=== PATIENT | female | born 1950 | race Caucasian/White ===

== ENCOUNTER 2023-07-23 14:39 | Emergency (ER) | payer BC, SELFPAY ==
[2023-07-23 14:42] VITALS: BP 159/81
--- NOTE | 2023-07-23 15:23 | ED.MUSCINJ ---
HPI-Injury
General
Chief Complaint: Musculo-Skeletal Complaint
Source: patient
Exam Limitations: none
Time Seen by Provider: 07/23/23 15:04
Travel History
Have you had any contact with someone who has COVID-19?: No
Do you have any symptoms of coronavirus? Fever > 100 degrees, chills, cough, shortness of breath, sore throat, loss of taste or smell, muscle aches, or headache?: No
History of Present Illness-Injury
Initial Injury comments:
73 year female presents after a fall she sustained two days ago while walking the dog. She complains of left wrist and hand pain. She hit her chin. No loss of conscious. She is not anticoagulated. She has persistent swelling and bruising to the
left hand. No other complaints at this time
Past History
Past History
ED Past Medical History: CVA, HTN, Hypothyroidism, Other (anemia) and Other (C-diff colitis 10/2017)
ED Past Surgical History: ; Negative Appendectomy, Bowel resection, Cardiac or Cholecystectomy
Patient has exhibited threatening behavior?: No
PSI?: No
Social History
Tobacco: Non-smoker
Alcohol: Occasional
Drug: None
Personal:
Living: with family
Employment: Retired
Family History
Family History: Other (Noncontributory)
Phy Exam
Physical Exam
Physical Exam:
General: Well appearing female NAD
HEENT: Normal cephalic, contusion to chin, no laceration. PERRL. Mandible nontender. Dentition appears ok
MSK: Left wrist swollen tender, over base of thumb and radial aspect of wrist. No deformity. Left elbow nontender
Vascular: 2+ radial pulse left wrist.
Neuro: Alert and oriented. Good sensation to left hand. Normal gait.
SkiN abrasion noted to left thenar eminence
Injury Course
Orders/Labs/Results
Orders:
Orders
07/23/23 14:47
Forearm, Left 2 View [CR Forearm - Left 2 View] Urgent
Comment:
Reason For Exam: fall
Hand, Left 3 View [CR Hand - Left Min 3 Views] Urgent
Comment:
Reason For Exam: fall
MDM/Problems Addressed
Differential Diagnosis Includes:
Mechanical fall. Left hand and distal forearm pain. She also notes contusion to the chin. She is alert. No headache currently. At her neurologic baseline. Injury was 2 days ago. No indication for head imaging at this point. Did review x-rays
of the left forearm and hand which were negative for obvious acute finding. There is significant degenerative changes at the base of the thumb hard to exclude underlying occult fracture in this area as this is the location of her pain. Will place
in thumb spica splint and advised that she follow-up with hand specialist for further evaluation
*Critical Care Note
Total Time (30-74mins, 75-104mins- exclusive of procedures): Not Applicable
ED Attending Note
-
Portions of this chart may have been created with voice recognition software.� Occasional wrong word or��sound alike� substitutions may have occurred due to the inherent limitations of voice recognition software.
Discharge Plan
Departure
Patient Disposition: Home (Routine Discharge)
Date of Disposition: 07/23/23
Time of Disposition: 15:35
Patient with high blood pressure during this ER visit?: No
Discharge Problem:
Left thumb sprain
Instructions: Muscle and Bone Pain (DC)
Prescriptions:
No Action
levothyroxine [Synthroid] 88 MCG tablet
88 mcg PO DAILY
Aspirin Low (Enteric Coated):
81 mg PO DAILY
multivitamin 1 EACH tablet
1 tab PO HS
Vitamin B-12:
1,000 unit PO HS
amlodipine 5 MG tablet
5 mg PO DAILY
metronidazole 500 MG tablet
500 mg PO Q8 Qty: 30 0RF
vancomycin 125 MG capsule
125 mg PO QID Qty: 40 0RF
vancomycin [Vancocin] 250 MG capsule
250 mg PO QID Qty: 28 0RF
polyethylene glycol 3350 17 GRAMS powder in packet
17 grams PO DAILY Qty: 5 0RF
magnesium hydroxide 30 ML suspension
30 ml PO HSPRN PRN (Reason: consitpaiton) Qty: 5 0RF
Referrals:
Jack Narayanan MD [Active] -
Kamran Zhao DO [Family Provider] -
Activity Restrictions/Additional Instructions:
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 It is difficult to 100% completely exclude underlying fracture. Use splint. Please follow-up with hand specialist for further evaluation. You may use Tylenol if needed for
pain
Interventions
Interventions:
*Risk Screen - Suicide Last Done: 07/23/23 14:42
*General Assessment Last Done: 07/23/23 14:42
*Neglect/Abuse Screening Last Done: 07/23/23 14:42
== END 2023-07-23 15:53 | disposition home or self-care (01) ==
LOC: EMR 14:39
PROVIDERS: EMERGENCY PHYSICIAN Emergency Medicine; FAMILY PHYSICIAN Family Medicine
DX: S63.602A Unspecified sprain of left thumb, initial encounter (principal); S00.83XA Contusion of other part of head, initial encounter; W19.XXXA Unspecified fall, initial encounter; Y93.K1 Activity, walking an animal
CPT/HCPCS: 99283; 29125; 73090; 73130

== ENCOUNTER 2023-07-29 15:41 | Emergency (ER) | payer BC, SELFPAY ==
[2023-07-29 15:48] VITALS: BP 170/87
[2023-07-29 16:36] VITALS: BMI 22.0
--- NOTE | 2023-07-29 16:37 | ED.GENMED ---
History of Present Illness
General
Chief Complaint: Fall
Time Seen by Provider: 07/29/23 16:37
Travel History
Have you had any contact with someone who has COVID-19?: No
Do you have any symptoms of coronavirus? Fever > 100 degrees, chills, cough, shortness of breath, sore throat, loss of taste or smell, muscle aches, or headache?: No
History of Present Illness
History of Present Illness:
HPI: The patient was seen here 6 days ago after a fall walking her dog (but does not think the dog was involved with falling and she cannot tell me why she fell) and was diagnosed with a left wrist sprain. 3 days later, she fell again also without
explanation. This caused increased pain in the left wrist and was seen by orthopedics who placed a cast at the left wrist but reports normal x-ray. She called PMD who wanted her to come in here for further evaluation including CT imaging. She has
chronic neck pain.
EXAM:
GENERAL: Well appearing in no distress
CERVICAL SPINE: No midline c-spine tenderness with excellent AROM
HEAD: There is no scalp hematoma however there is noted to the chin diffusely
CHEST: No chest wall tenderness, normal heart sounds
LUNGS: Equal lung sounds, no respiratory distress
ABDOMEN: No abdominal tenderness, no peritoneal signs
EXTREMITIES: Cast noted to the distal left upper extremity
NEURO: Excellent strength all extremities, appropriate mental status, normal speech/language
TIME OF INITIAL ENCOUNTER: 4:40 PM
NUMBER AND COMPLEXITY OF PROBLEMS ADDRESSED AT THE ENCOUNTER
� Chronic conditions affecting care: Has had concussions in the past, TIA/CVA in the past, hypothyroidism
� Acute Exacerbation and/or Progression of Chronic Illness:
� Differential Diagnosis includes:
AMOUNT AND/OR COMPLEXITY OF DATA TO BE REVIEWED AND ANALYZED
� I performed an independent evaluation of and my interpretation is:
EKG: Sinus 55, normal axis, poor R wave progression, nonspecific ST abnormality now more prominent in comparison to 08/31/09
CT: CT brain shows no acute abnormality
X-rays:
Laboratory Studies: CBC unremarkable, calcium slightly high at 10.8 and TSH high at 8.2
Other:
� Review of other/old records: I reviewed x-ray reports from 6 days ago
� Clinical information was obtained by an independent historian: None needed
� Prescriptions/Medications Considered but not given:
� Further testing considered but not performed:
RISK OF COMPLICATIONS AND/OR MORBIDITY OR MORTALITY OF PATIENT MANAGEMENT
� Social determinants of health affecting care: Lives at home
� Discussion with other providers: None needed
� Escalation of care including admission/observation vs risk of discharge considered: The patient's workup is relatively unremarkable. I reassessed patient at 6:25 PM and she is well-appearing. Recommend PMD follow-up.
Past History
Past History
ED Past Medical History: CVA, HTN, Hypothyroidism, Other (anemia) and Other (C-diff colitis 10/2017)
ED Past Surgical History: ; Negative Appendectomy, Bowel resection, Cardiac or Cholecystectomy
Patient has exhibited threatening behavior?: No
PSI?: No
Social History
Tobacco: Non-smoker
Alcohol: Occasional
Drug: None
Personal:
Living: with family
Employment: Retired
Family History
Family History: Other (Noncontributory)
Phy Exam
Physical Exam
Physical Exam:
See HPI
Course
Orders/Labs/Results
Orders:
Orders
07/29/23 16:44
ECG [Electrocardiogram (*1)] Urgent
Reason for Study: Syncope
07/29/23 16:45
CT Head W/o Iv Contrast Urgent
Comment:
Reason For Exam: recurrent syncope / trauma
EKG- Treatment ONCE
07/29/23 16:46
Basic Metabolic Panel Urgent
Complete Blood Count/With Diff Urgent
07/29/23 16:50
Free T4 Urgent
TSH Reflex To Free T4 Urgent
Abnormal Lab Results
07/29/23 07/29/23
16:46 16:50
RBC 4.03 L 10^6/uL
(4.20-5.40)
Hct 35.7 L %
(37.0-47.0)
Absolute Monos (auto) 0.7 H 10^3/uL
(0.1-0.6)
Monocytes % 10.9 H %
(1.7-9.3)
BUN 26 H mg/dl
(7-17)
Calcium 10.8 H mg/dl
(8.4-10.2)
TSH (Reflex) 8.21 H uIU/ml
(0.47-4.68)
07/29/23 16:46
07/29/23 16:46
Vital Signs
Initial and Last Documented VS:
Initial Vital Signs
Temp Pulse Resp BP Pulse Ox
98.0 F 64 18 170/87 100
07/29/23 15:48 07/29/23 15:48 07/29/23 15:48 07/29/23 15:48 07/29/23 15:48
Last Documented Vital Signs
Temp Pulse Resp BP Pulse Ox
98.0 F 86 20 158/92 100
07/29/23 15:48 07/29/23 17:32 07/29/23 17:32 07/29/23 17:32 07/29/23 15:48
*Critical Care Note
Total Time (30-74mins, 75-104mins- exclusive of procedures): Not Applicable
ED Attending Note
-
Portions of this chart may have been created with voice recognition software.� Occasional wrong word or��sound alike� substitutions may have occurred due to the inherent limitations of voice recognition software.
Discharge Plan
Departure
Patient Disposition: Home (Routine Discharge)
Date of Disposition: 07/29/23
Time of Disposition: 18:22
Patient with high blood pressure during this ER visit?: Yes
Discharge Problem:
Syncope and collapse
Instructions: BLOOD PRESSURE
Prescriptions:
No Action
levothyroxine [Synthroid] 88 MCG tablet
88 mcg PO DAILY
Aspirin Low (Enteric Coated):
81 mg PO DAILY
multivitamin 1 EACH tablet
1 tab PO HS
Vitamin B-12:
1,000 unit PO HS
amlodipine 5 MG tablet
5 mg PO DAILY
metronidazole 500 MG tablet
500 mg PO Q8 Qty: 30 0RF
vancomycin 125 MG capsule
125 mg PO QID Qty: 40 0RF
vancomycin [Vancocin] 250 MG capsule
250 mg PO QID Qty: 28 0RF
polyethylene glycol 3350 17 GRAMS powder in packet
17 grams PO DAILY Qty: 5 0RF
magnesium hydroxide 30 ML suspension
30 ml PO HSPRN PRN (Reason: consitpaiton) Qty: 5 0RF
Referrals:
Kamran Zhao, DO [Family Provider] -
Activity Restrictions/Additional Instructions:
The cause of your symptoms is unclear. CAT scan of the brain shows no acute abnormality. Your calcium level is slightly high at 10.8 (top normal being up to 10.2). Your TSH screening test was slightly high at 8.2 however the main thyroid number
(free T4 level) was normal at 1.12 therefore I recommend no changes in thyroid dosing. Follow-up your primary care doctor. Your hemoglobin and white blood cell count are both normal. Kidney function is normal. Return here if worse.
Interventions
Interventions:
*Risk Screen - Suicide Last Done: 07/29/23 16:39
*General Assessment Last Done: 07/29/23 16:39
*Neglect/Abuse Screening Last Done: 07/29/23 16:39
*ED COVID-19 Vaccine History Last Done: 07/29/23 16:38
ED-Musculoskeletal Assessment Last Done: 07/29/23 16:39
ED- Neurological Assessment Last Done: 07/29/23 16:39
ED-Skin Assessment Last Done: 07/29/23 16:39
Discharge Date and Time
Print Language: [place]
[2023-07-29 17:00] LABS: % Eosinophils 2.5 % (0-6); % Immature Granulocytes 0.1 % (0-0.5); % Lymphocytes 36.5 % (20.5-51.1); % Monocytes 10.9 % (1.7-9.3); Absolute Basophils 0.1 10^3/uL (0-0.2); Absolute Eosinophils 0.2 10^3/uL (0-0.7); Absolute Lymphocytes 2.5 10^3/uL (1.2-3.4); Absolute Monocytes 0.7 10^3/uL (0.1-0.6); Absolute Neutrophils 3.3 10^3/uL (1.4-6.5); Hematocrit 35.7 % (37.0-47.0); Hemoglobin 12.4 g/dL (12.0-16.0); Mean Corp Hgb Conc. 34.7 g/dL (33.0-37.0); Mean Corpuscular Hgb 30.8 pg (27.0-31.0); Mean Corpuscular Volume 88.6 fL (81.0-99.0); Mean Platelet Volume 9.8 fL (7.4-10.4); Nucleated Red Blood Cells % 0 %; Platelet Count 301 10^3/uL (130-400); Red Blood Cell Count 4.03 10^6/uL (4.20-5.40); Red Cell Dist. Width 13.3 % (11.5-14.5); White Blood Cell Count 6.7 10^3/uL (4.8-10.8)
[2023-07-29 17:11] LABS: Blood Urea Nitrogen 26 mg/dl (7-17); Calcium 10.8 mg/dl (8.4-10.2); Carbon Dioxide 24 mmol/L (22-30); Chloride 104 mmol/L (98-107); Estimated Creatinine Clearance 45 ml/min; Glucose 86 mg/dl (70-99); Potassium 3.6 mmol/L (3.5-5.1); Sodium 135 mmol/L (135-145); eGFR > 60.00
[2023-07-29 17:32] VITALS: BP 158/92
[2023-07-29 17:44] LABS: TSH Reflex To Free T4 8.21 uIU/ml (0.47-4.68)
[2023-07-29 18:15] LABS: Free T4 1.12 ng/dl (0.78-2.19)
[2023-07-29 18:32] VITALS: BP 162/73
== END 2023-07-29 18:45 | disposition home or self-care (01) ==
LOC: EMR 15:41
PROVIDERS: EMERGENCY PHYSICIAN Emergency Medicine; FAMILY PHYSICIAN Family Medicine
DX: R55 Syncope and collapse (principal)
CPT/HCPCS: 99285; 70450; 80048; 84439; 84443; 85025; 93005

== ENCOUNTER 2023-08-08 16:36 | Emergency (ER) | payer BC, SELFPAY ==
[2023-08-08 16:43] VITALS: BP 146/86; BMI 21.3
[2023-08-08 16:59] LABS: % Basophils 0.9 % (0-2); % Eosinophils 3.2 % (0-6); % Immature Granulocytes 0.2 % (0-0.5); % Lymphocytes 33.3 % (20.5-51.1); % Monocytes 11.9 % (1.7-9.3); % Neutrophils 50.5 % (42.2-75.2); Absolute Basophils 0.1 10^3/uL (0-0.2); Absolute Eosinophils 0.2 10^3/uL (0-0.7); Absolute Lymphocytes 2.2 10^3/uL (1.2-3.4); Absolute Monocytes 0.8 10^3/uL (0.1-0.6); Absolute Neutrophils 3.4 10^3/uL (1.4-6.5); Hematocrit 32.3 % (37.0-47.0); Hemoglobin 11.6 g/dL (12.0-16.0); Mean Corp Hgb Conc. 35.9 g/dL (33.0-37.0); Mean Corpuscular Hgb 30.9 pg (27.0-31.0); Mean Corpuscular Volume 86.1 fL (81.0-99.0); Mean Platelet Volume 9.4 fL (7.4-10.4); Nucleated Red Blood Cells % 0 %; Platelet Count 336 10^3/uL (130-400); Red Blood Cell Count 3.75 10^6/uL (4.20-5.40); Red Cell Dist. Width 13.4 % (11.5-14.5); White Blood Cell Count 6.7 10^3/uL (4.8-10.8)
[2023-08-08 17:14] LABS: ALT (SGPT) 27 U/L (0-35); AST (SGOT) 34 U/L (14-36); Albumin 4.1 g/dl (3.5-5.0); Alkaline Phosphatase 84 U/L (38-126); Blood Urea Nitrogen 27 mg/dl (7-17); Calcium 10.5 mg/dl (8.4-10.2); Carbon Dioxide 24 mmol/L (22-30); Chloride 102 mmol/L (98-107); Estimated Creatinine Clearance 40 ml/min; Glucose 97 mg/dl (70-99); Potassium 3.4 mmol/L (3.5-5.1); Sodium 132 mmol/L (135-145); Total Bilirubin 0.3 mg/dl (0.2-1.3); Total Protein 6.6 g/dl (6.3-8.2); eGFR 58.75
[2023-08-08 17:21] LABS: Troponin I < 0.012 ng/ml
[2023-08-08 18:45] VITALS: BP 172/81
--- NOTE | 2023-08-08 18:56 | ED.GENMED ---
History of Present Illness
General
Chief Complaint: Chest Pain
Source: patient
Exam Limitations: none
Time Seen by Provider: 08/08/23 18:35
Travel History
Have you had any contact with someone who has COVID-19?: No
Do you have any symptoms of coronavirus? Fever > 100 degrees, chills, cough, shortness of breath, sore throat, loss of taste or smell, muscle aches, or headache?: No
History of Present Illness
History of Present Illness:
This is a 73 year old female that comes in with c/o chest pain. States that she was feeling 'crumby' today. States that she started with left upper chest pain under her clavicle. States that she was dizzy/lightheaded and nauseated. States that the
pain went up into her neck and down her left arm and it was different then the pain she had felt with the Fracture. States that this lasted a couple of hours. States that she had fallen a week ago as she was dizzy. States that she was also awakened
from sleep on Tuesday night around 4apm and the pain lasted for about 1 hour. Denies any fever, chills, SOB, abd pain, vomiting, diarrhea, headache, urinary burning.
Past History
Past History
ED Past Medical History: HTN, Hypothyroidism, Other (anemia, TIA, Concussion, C-diff) and Other (C-diff colitis 10/2017)
ED Past Surgical History: and Other (cataracts, right eye surgery); Negative Appendectomy, Bowel resection, Cardiac or Cholecystectomy
Patient has exhibited threatening behavior?: No
PSI?: No
Social History
Tobacco: Former smoker
Alcohol: Occasional
Drug: None
Personal:
Living: with family
Employment: Retired
Family History
Family History: Other (Noncontributory)
Review of Systems
Review of Systems
All Other Systems: ROS reviewed and negative except as documented in HPI and ROS
Constitutional: Reports no symptoms; Denies fever or chills
EENT: Reports no symptoms
Respiratory: Reports no symptoms; Denies cough or trouble breathing
Cardiac: Reports chest pain
ABD/GI: Reports nausea; Denies abdominal pain, vomiting or diarrhea
: Reports no symptoms; Denies dysuria, frequency or urgency
Musculoskeletal: Reports no symptoms
Skin: Reports no symptoms
Neurological: Reports other (Lightheaded); Denies headache
Psychiatric: Reports no symptoms
Phy Exam
General Physical Exam
General Presentation: well appearing and no apparent distress
General age: appears stated age
General Skin: warm and dry
General Habitus: elderly
General Mental: alert
General Hydration: appears well hydrated
ENT Exam
ENT Exam: TM's normal, pharynx normal and neck supple
Eye Exam
Eye Exam: EOMI
Cardiovascular Exam
Cardiovascular Exam: regular rate/rhythm, no edema, no murmur and normal peripheral pulses
Pulmonary Exam
Pulmonary Exam: lungs clear, no respiratory distress, no rales, chest non tender, no crackles, no rhonchi, no wheezing and no cough
Gastrointestinal Exam
Gastrointestinal Exam: normal bowel sounds, non tender, soft, no organomegaly, no pulsatile mass and non distended
Musculoskeletal Exam
Musculoskeletal Exam: full ROM, no edema and other (cast left forearm, )
Skin Exam
Skin Exam: normal color, warm/dry, no rash and no petechia
Psychiatric Exam
Psychiatric Exam: normal mood/affect
Scores
Heart Score for Chest Pain Patients
STEMI patient?: No
History: Slightly or Non-Suspicious
ECG: Normal
Age: >/= 65 years
Risk Factors: 1 or 2 Risk Factors
Troponin: </= Normal Limit
Heart Score for Chest Pain Patients: 3
Heart Score Risk: 2.5% MACE over next 6 weeks
Course
Orders/Labs/Results
Orders:
Orders
08/08/23 16:38
EKG [Electrocardiogram (*1)] Urgent
Reason for Study: Chest Pain
EKG- Treatment ONCE
08/08/23 16:53
Complete Blood Count/With Diff Urgent
Comprehensive Metabolic Panel Urgent
Troponin I Urgent
08/08/23 18:55
EKG- Treatment ONCE
CR Chest - 2 Views Urgent
Comment:
Reason For Exam: cHEST PAIN
08/08/23 18:56
0.9% Sodium Chloride 500 ml [Nss] 500 ml IV BOLUS
08/08/23 19:50
Electrocardiogram (*1) Urgent
Reason for Study: Chest Pain
Other Reason for Exam: REPEAT WITH TROPONIN
08/08/23 21:23
Troponin I Urgent
Abnormal Lab Results
08/08/23
16:53
RBC 3.75 L 10^6/uL
(4.20-5.40)
Hgb 11.6 L g/dL
(12.0-16.0)
Hct 32.3 L %
(37.0-47.0)
Absolute Monos (auto) 0.8 H 10^3/uL
(0.1-0.6)
Monocytes % 11.9 H %
(1.7-9.3)
Sodium 132 L mmol/L
(135-145)
Potassium 3.4 L mmol/L
(3.5-5.1)
BUN 27 H mg/dl
(7-17)
Calcium 10.5 H mg/dl
(8.4-10.2)
08/08/23 16:53
08/08/23 16:53
H/H slightly low. Sodium slightly low. Dehydration. Calcium elevated. Troponin <0.012
Second Troponin <0.012
Vital Signs
Initial and Last Documented VS:
Initial Vital Signs
Temp Pulse Resp BP Pulse Ox
98.2 F 67 16 146/86 99
08/08/23 16:43 08/08/23 16:43 08/08/23 16:43 08/08/23 16:43 08/08/23 16:43
Last Documented Vital Signs
Temp Pulse Resp BP Pulse Ox
98.2 F 68 13 172/81 98
08/08/23 16:43 08/08/23 18:45 08/08/23 18:45 08/08/23 18:45 08/08/23 18:45
MDM/Problems Addressed
Differential Diagnosis Includes:
Coronary artery disease. Musculoskeletal pain
MDM/Problems Addressed:
This is a 73 year old female that comes in with c/o left upper chest pain with radiation into the neck and down the left arm. States that she also was awakened from sleep on Tuesday night with pain.
Will check Labs, Chest x-ray
Repeat ECG: rate 63, 1st decree heart block, Normal axis. Normal QRS, negative for ischemia. Checked by Dr. Anders.
Back into see patient. Explained that both Troponins are normal. Patient has been pain free. Will place patient on the Cardiology hot line. Patient to return with increased or changing pain, or any other concerns.
Chronic conditions affecting care:
NA
Acute Exacerbation and/or Progression of Chronic Illness:
NA
*Radiology
Radiology exam reviewed: preliminary read by ED provider (Chest- negative for active disease)
*Pulse Oximetry
Patient hypoxic: no
*EKG
Interpreted by ED Provider?: Yes
Heart Rate: 72
Rate: normal
Rhythm: sinus
Nicollet: normal axis
Interval: normal interval
QRS Pattern: normal QRS
Ischemia: no ischemia (Checked by Dr. Rawls)
*Fitness Center Attendant Interpretation
Rate: normal
Heart Rate: 64
Rhythm: sinus
*Critical Care Note
Total Time (30-74mins, 75-104mins- exclusive of procedures): Not Applicable
ED Attending Note
-
Portions of this chart may have been created with voice recognition software.� Occasional wrong word or��sound alike� substitutions may have occurred due to the inherent limitations of voice recognition software.
Discharge Plan
Departure
Patient Disposition: Home (Routine Discharge)
Date of Disposition: 08/08/23
Time of Disposition: 22:19
Patient with high blood pressure during this ER visit?: Yes
Condition: Good
Discharge Problem:
Chest pain
Instructions: Chest Pain CBC Follow Up, BLOOD PRESSURE
Prescriptions:
No Action
levothyroxine [Synthroid] 88 MCG tablet
88 mcg PO DAILY
Aspirin Low (Enteric Coated):
81 mg PO DAILY
multivitamin 1 EACH tablet
1 tab PO HS
Vitamin B-12:
1,000 unit PO HS
amlodipine 5 MG tablet
5 mg PO DAILY
metronidazole 500 MG tablet
500 mg PO Q8 Qty: 30 0RF
vancomycin 125 MG capsule
125 mg PO QID Qty: 40 0RF
vancomycin [Vancocin] 250 MG capsule
250 mg PO QID Qty: 28 0RF
polyethylene glycol 3350 17 GRAMS powder in packet
17 grams PO DAILY Qty: 5 0RF
magnesium hydroxide 30 ML suspension
30 ml PO HSPRN PRN (Reason: consitpaiton) Qty: 5 0RF
Referrals:
Kamran Zhao DO [Family Provider] -
Peewee Barrera MD [Active] - Follow up in 2-3 days
Activity Restrictions/Additional Instructions:
As discussed your blood work shows that you are dehydrated. Please increase your water intake to 8-8oz glasses daily. You have been placed on the [facility] hot line. This means that the [facility] office will call you the next business day and get
you into see someone in there office. IF YOU HAVE INCREASED OR CHANGING PAIN, OR YOU HAVE ANY OTHER CONCERNS PLEASE RETURN TO THE EMEMRGENCY ROOM.
Interventions
Interventions:
*Risk Screen - Suicide Last Done: 08/08/23 16:43
*General Assessment Last Done: 08/08/23 18:49
*Neglect/Abuse Screening Last Done: 08/08/23 18:49
*ED COVID-19 Vaccine History Last Done: 08/08/23 16:43
ED- Cardiac Assessment Last Done: 08/08/23 18:49
Discharge Date and Time
Print Language: [place]
[2023-08-08] MEDS: NSS 500 IV (18:57)
[2023-08-08 21:53] LABS: Troponin I < 0.012 ng/ml
[2023-08-08 22:45] VITALS: BP 154/81
== END 2023-08-08 22:30 | disposition home or self-care (01) ==
LOC: EMR 16:36
PROVIDERS: Emergency Medicine; EMERGENCY PHYSICIAN Emergency Medicine; FAMILY PHYSICIAN Family Medicine
DX: R07.89 Other chest pain (principal); R42 Dizziness and giddiness; R11.0 Nausea; I45.9 Conduction disorder, unspecified; E86.0 Dehydration; I10 Essential (primary) hypertension; Z87.891 Personal history of nicotine dependence; Z86.73 Personal history of transient ischemic attack (TIA), and cerebral infarction without residual deficits
CPT/HCPCS: 99285; 96360; 71046; 80053; 84484; 85025; 93005

== ENCOUNTER → 2023-08-12 07:03 | Outpatient (REF) | payer BC, SELFPAY ==
[2023-08-12] MEDS: LEXISCAN 0.400000000000000022 MG IV (10:15)
== END ==
LOC: RCS 07:03
PROVIDERS: ATTENDING PHYSICIAN Internal Medicine Cardiovascular Disease; FAMILY PHYSICIAN Family Medicine
DX: R07.89 Other chest pain (principal); W19.XXXD Unspecified fall, subsequent encounter
CPT/HCPCS: 78452; 93017; 93225; 93226; 93306; A9500; J2785

== ENCOUNTER 2024-03-16 09:53 | Emergency (ER) | payer BC, SELFPAY ==
[2024-03-16 10:02] VITALS: BP 164/79
--- NOTE | 2024-03-16 10:58 | EDRN ---
Audra Hobson PA in to see pt.
--- NOTE | 2024-03-16 11:13 | EDRN ---
Audra Hobson PA in room w/pt.
[2024-03-16 11:35] VITALS: BP 165/70; BMI 21.7
--- NOTE | 2024-03-16 11:51 | EDRN ---
Pt states symptoms started 2 weeks ago on Tuesday, pain is across lower abd L >R, 3-08/09, mostly achy but at times sharp int., faint and fleeting nausea w/no vomiting, no urinary symptoms
[2024-03-16 11:57] LABS: % Basophils 0.9 % (0-2); % Eosinophils 2.3 % (0-6); % Immature Granulocytes 0.4 % (0-0.5); % Lymphocytes 27.5 % (20.5-51.1); % Monocytes 12.5 % (1.7-9.3); % Neutrophils 56.4 % (42.2-75.2); Absolute Basophils 0.1 10^3/uL (0-0.2); Absolute Eosinophils 0.1 10^3/uL (0-0.7); Absolute Lymphocytes 1.6 10^3/uL (1.2-3.4); Absolute Monocytes 0.7 10^3/uL (0.1-0.6); Absolute Neutrophils 3.2 10^3/uL (1.4-6.5); Hemoglobin 12.2 g/dL (12.0-16.0); Mean Corp Hgb Conc. 33.9 g/dL (33.0-37.0); Mean Corpuscular Hgb 30.9 pg (27.0-31.0); Mean Corpuscular Volume 91.1 fL (81.0-99.0); Mean Platelet Volume 9.9 fL (7.4-10.4); Nucleated Red Blood Cells % 0 %; Platelet Count 300 10^3/uL (130-400); Red Blood Cell Count 3.95 10^6/uL (4.20-5.40); Red Cell Dist. Width 13.7 % (11.5-14.5); White Blood Cell Count 5.7 10^3/uL (4.8-10.8)
[2024-03-16 12:00] VITALS: BP 163/76
[2024-03-16 12:03] LABS: ALT (SGPT) 20 U/L (0-35); AST (SGOT) 30 U/L (14-36); Albumin 4.1 g/dl (3.5-5.0); Alkaline Phosphatase 62 U/L (38-126); Blood Urea Nitrogen 24 mg/dl (7-17); Calcium 10.9 mg/dl (8.4-10.2); Carbon Dioxide 31 mmol/L (22-30); Chloride 101 mmol/L (98-107); Estimated Creatinine Clearance 42 ml/min; Glucose 98 mg/dl (70-99); Potassium 3.3 mmol/L (3.5-5.1); Sodium 139 mmol/L (135-145); Total Bilirubin 0.4 mg/dl (0.2-1.3); Total Protein 6.6 g/dl (6.3-8.2); eGFR 58.75
[2024-03-16 12:04] LABS: Urine Albumin Negative (Neg - Trace); Urine Bilirubin Negative (Negative); Urine Character Clear (Clear); Urine Color Yellow; Urine Glucose Negative (Negative); Urine Ketone Negative (Negative); Urine Leukocyte Negative (Negative); Urine Nitrite Negative (Negative); Urine Occult Blood Negative (Negative); Urine Specific Gravity 1.015 (<1.030); Urine Urobilinogen Negative (Neg - 1+)
--- NOTE | 2024-03-16 12:05 | ED.GENMED ---
History of Present Illness
General
Chief Complaint: Urinary Symptoms
Source: patient
Time Seen by Provider: 03/16/24 10:42
History of Present Illness
History of Present Illness:
73-year-old female with past medical history of previous TIA, hypertension, hypothyroidism presenting to the emergency department for evaluation at the request of primary care provider after patient had 1 episode of hematuria 2 weeks ago, symptoms
resolved but has been having some suprapubic discomfort upon awakening this morning. Patient had a follow-up visit with primary care and had a urinalysis done which showed microscopic hematuria but patient was no longer noticing the blood in her
urine. She denies any other symptoms including fevers, chills, rigors, nausea, vomiting, bowel changes, fatigue/weakness or any other concerns. Denies any history of similar. Social history was noted for quitting smoking back in 1992, smoking
history for about 15 to 20 years.
Past History
Past History
ED Past Medical History: HTN, Hypothyroidism, Other (anemia, TIA, Concussion, C-diff) and Other (C-diff colitis 10/2017)
ED Past Surgical History: and Other (cataracts, right eye surgery); Negative Appendectomy, Bowel resection, Cardiac or Cholecystectomy
Patient has exhibited threatening behavior?: No
PSI?: No
Social History
Tobacco: Former smoker
Alcohol: Occasional
Drug: None
Personal:
Living: with family
Employment: Retired
Family History
Family History: Other (Noncontributory)
Review of Systems
Review of Systems
All Other Systems: ROS reviewed and negative except as documented in HPI and ROS
Phy Exam
Physical Exam
Physical Exam:
GENERAL: Alert , in no apparent distress
EYE: clear conjunctiva b/l
HEAD: NCAT
ENT: mmm.
CARDIAC: Regular rate and rhythm .
LUNGS: Clear breath sounds bilaterally, no acute respiratory distress, no wheezes/rales/rhonchi
ABDOMEN: Soft, tenderness to the suprapubic and left lower quadrant regions however patient states pain is little bit more to the left lower quadrant on palpation, no r/g, no cvat
NEUROLOGICAL: Alert and oriented
SKIN: Warm and dry, skin intact.
MUSCULOSKELETAL: well perfused.
PSYCH: Normal and appropriate interaction.
Scores
Heart Failure Risk
Heart Failure Risk Score: Not Applicable
Heart Score for Chest Pain Patients
STEMI patient?: Not applicable
Withdrawal Assessment of Alcohol
Withdrawal Assessment Completed?: Not applicable
Course
Orders/Labs/Results
Orders:
Orders
03/16/24 11:21
CT Abd/pelvis W Iv Cont Urgent
Comment:
Reason For Exam: hematuria, suprapubic/LLQ pain
03/16/24 11:31
Complete Blood Count/With Diff Urgent
Comprehensive Metabolic Panel Urgent
Urinalysis Reflex To Culture Urgent
Date Specimen was Collected: 03/16/24
Time Specimen was Collected: 11:26
03/16/24 12:05
Potassium Chloride [KCl] 20 meq PO NOW STA
Abnormal Lab Results
03/16/24
11:31
RBC 3.95 L 10^6/uL
(4.20-5.40)
Hct 36.0 L %
(37.0-47.0)
Absolute Monos (auto) 0.7 H 10^3/uL
(0.1-0.6)
Monocytes % 12.5 H %
(1.7-9.3)
Potassium 3.3 L mmol/L
(3.5-5.1)
Carbon Dioxide 31 H mmol/L
(22-30)
BUN 24 H mg/dl
(7-17)
Calcium 10.9 H mg/dl
(8.4-10.2)
03/16/24 11:31
03/16/24 11:31
Vital Signs
Initial and Last Documented VS:
Initial Vital Signs
Temp Pulse Resp BP Pulse Ox
98.7 F 60 18 164/79 98
03/16/24 10:02 03/16/24 10:02 03/16/24 10:02 03/16/24 10:02 03/16/24 10:02
Last Documented Vital Signs
Temp Pulse Resp BP Pulse Ox
98.7 F 61 16 144/87 97
03/16/24 10:02 03/16/24 13:40 03/16/24 13:40 03/16/24 13:40 03/16/24 13:40
MDM/Problems Addressed
Differential Diagnosis Includes:
Urinary tract infection, cystitis, renal/ureteral colic, pyelonephritis, diverticulitis
MDM/Problems Addressed:
73-year-old female presenting to the ER at the request of primary care provider after she had 1 episode of hematuria 2 weeks ago, on repeat urinalysis still had microscopic hematuria but today woke up with lower abdominal pain. At time of my exam
patient states pain is mostly resolved. No other symptoms. She did have tenderness to the left lower quadrant and mildly to the suprapubic region on my exam. Will check labs and CT imaging. Urinalysis ordered. Reassessment following.
*Radiology
Radiology exam reviewed: radiology read reviewed
*Pulse Oximetry
Patient hypoxic: no
*Critical Care Note
Total Time (30-74mins, 75-104mins- exclusive of procedures): Not Applicable
Data Reviewed
Review of Other/Old Records Reveals: Labs
Patient Management
Social determinants of health affecting care: Living situation and Strong social support
Escalation/DeEscalation of care consider admission/obs:
Patient CT scan with mostly chronic findings however there was noted possible mild acute colitis which could be the cause of patient's left lower abdominal pain. She has a history of C. difficile colitis so I am hesitant to start any antibiotics.
Her urinalysis does not suggest any acute infection. Patient was provided with a printout of her CT report and advised to follow-up with her primary care provider and was also given information for urologist to follow-up with. Stable for discharge
home and aware of return precautions to the ER.
ED Attending Note
-
Portions of this chart may have been created with voice recognition software.� Occasional wrong word or��sound alike� substitutions may have occurred due to the inherent limitations of voice recognition software.
Discharge Plan
Departure
Patient Disposition: Home (Routine Discharge)
Date of Disposition: 03/16/24
Time of Disposition: 14:43
Patient with high blood pressure during this ER visit?: Yes
Discharge Problem:
Abdominal pain
Instructions: Blood in the Urine (Hematuria), Adult (DC)
Prescriptions:
No Action
levothyroxine [Synthroid] 88 MCG tablet
88 mcg PO DAILY
Aspirin Low (Enteric Coated):
81 mg PO DAILY
multivitamin 1 EACH tablet
1 tab PO HS
Vitamin B-12:
1,000 unit PO HS
amlodipine 5 MG tablet
5 mg PO DAILY
metronidazole 500 MG tablet
500 mg PO Q8 Qty: 30 0RF
vancomycin 125 MG capsule
125 mg PO QID Qty: 40 0RF
vancomycin [Vancocin] 250 MG capsule
250 mg PO QID Qty: 28 0RF
polyethylene glycol 3350 17 GRAMS powder in packet
17 grams PO DAILY Qty: 5 0RF
magnesium hydroxide 30 ML suspension
30 ml PO HSPRN PRN (Reason: consitpaiton) Qty: 5 0RF
Referrals:
Avery Reid Jr., MD [Active] - (Urology - Call for appointment)
Kamran Zhao DO [Family Provider] -
Interventions
Interventions:
*Risk Screen - Suicide Last Done: 03/16/24 11:35
*General Assessment Last Done: 03/16/24 11:35
*Neglect/Abuse Screening Last Done: 03/16/24 11:35
ED- Fall Risk Assessment Last Done: 03/16/24 11:35
*ED COVID-19 Vaccine History Last Done: 03/16/24 11:35
ED-Female Genitourinary Assessment Last Done: 03/16/24 11:35
Discharge Date and Time
Print Language: ISRAELI
[2024-03-16] MEDS: KCL 20 MEQ PO (12:37)
[2024-03-16 13:40] VITALS: BP 144/87
[2024-03-16 14:47] VITALS: BP 151/88
== END 2024-03-16 14:55 | disposition home or self-care (01) ==
LOC: EMR 09:53
PROVIDERS: Physician Assistant Medical; EMERGENCY PHYSICIAN Emergency Medicine; FAMILY PHYSICIAN Family Medicine
DX: R10.9 Unspecified abdominal pain (principal); E03.9 Hypothyroidism, unspecified; D64.9 Anemia, unspecified; I10 Essential (primary) hypertension; Z86.73 Personal history of transient ischemic attack (TIA), and cerebral infarction without residual deficits; Z87.891 Personal history of nicotine dependence; Z90.49 Acquired absence of other specified parts of digestive tract
CPT/HCPCS: 99284; 74177; 80053; 81003; 85025; Q9967

== ENCOUNTER → 2024-04-16 15:04 | Outpatient (REF) | payer BC, SELFPAY | LOC: RAD 15:04 | PROVIDERS: ATTENDING PHYSICIAN Family Medicine | DX: M17.11 Unilateral primary osteoarthritis, right knee (principal) | CPT/HCPCS: 73564 ==

== ENCOUNTER → 2024-06-14 13:33 | Outpatient (REF) | payer BC, SELFPAY | LOC: PAVMRI 13:33 | PROVIDERS: ATTENDING PHYSICIAN Internal Medicine; FAMILY PHYSICIAN Family Medicine | DX: K83.8 Other specified diseases of biliary tract (principal); R93.89 Abnormal findings on diagnostic imaging of other specified body structures | CPT/HCPCS: 74183; A9575 ==

== ENCOUNTER → 2024-06-20 10:36 | Outpatient (REF) | payer BC, SELFPAY ==
[2024-06-20 13:20] LABS: Blood Urea Nitrogen 22 mg/dl (7-17); Calcium 10.5 mg/dl (8.4-10.2); Carbon Dioxide 29 mmol/L (22-30); Chloride 101 mmol/L (98-107); Glucose 93 mg/dl (70-99); Potassium 3.7 mmol/L (3.5-5.1); Sodium 138 mmol/L (135-145); eGFR 58.75
== END ==
LOC: REG 10:36
PROVIDERS: ATTENDING PHYSICIAN Urology; FAMILY PHYSICIAN Family Medicine
DX: R31.0 Gross hematuria (principal)
CPT/HCPCS: 36415; 80048

== ENCOUNTER → 2024-06-21 08:10 | Outpatient (REF) | payer BC, SELFPAY | LOC: RAD 08:10 | PROVIDERS: ATTENDING PHYSICIAN Urology; FAMILY PHYSICIAN Family Medicine | DX: R31.0 Gross hematuria (principal) | CPT/HCPCS: 74178; Q9967 ==

== ENCOUNTER → 2024-06-24 07:32 | Outpatient (REF) | payer BC, SELFPAY | LOC: PAVMRI 07:32 | PROVIDERS: ATTENDING PHYSICIAN Podiatrist Foot & Ankle Surgery; FAMILY PHYSICIAN Family Medicine | DX: M25.572 Pain in left ankle and joints of left foot (principal) | CPT/HCPCS: 73721 ==

== ENCOUNTER 2024-07-04 14:24 | Emergency (ER) | payer BC, SELFPAY ==
[2024-07-04 14:27] VITALS: BP 151/84
--- NOTE | 2024-07-04 14:54 | ED.MUSCINJ ---
HPI-Injury
General
Chief Complaint: Fall
Source: patient
Exam Limitations: none
Time Seen by Provider: 07/04/24 14:31
History of Present Illness-Injury
Initial Injury comments:
74-year-old female presents complaining of left rib pain after fall sustained 2 days ago. She was walking her dog and fell forward landing on her left side. She now notes increased trouble breathing. She is currently wearing a Holter monitor. No
neck or back pain. She did not strike her head. She is not anticoagulated. She denies abdominal pain
Past History
Past History
ED Past Medical History: HTN, Hypothyroidism, Other (anemia, TIA, Concussion, C-diff) and Other (C-diff colitis 10/2017)
ED Past Surgical History: and Other (cataracts, right eye surgery); Negative Appendectomy, Bowel resection, Cardiac or Cholecystectomy
Patient has exhibited threatening behavior?: No
PSI?: No
Social History
Tobacco: Former smoker
Alcohol: Occasional
Drug: None
Personal:
Living: with family
Employment: Retired
Family History
Family History: Other (Noncontributory)
Phy Exam
Physical Exam
Physical Exam:
General: Well-appearing female no acute respiratory distress
HEENT normocephalic atraumatic
Heart: Regular rate and rhythm
Lungs: Clear no wheeze
Musculoskeletal exam: Patient is tender over the left anterior lateral chest wall without step-off or deformity. Spine is nontender good range of motion all extremities
Skin warm no rash
Injury Course
Orders/Labs/Results
Orders:
Orders
07/04/24 14:52
CR Ribs-left 3 Vw W/pa Chest Urgent
Comment:
Reason For Exam: fall, left rib pain
MDM/Problems Addressed
Differential Diagnosis Includes:
Mechanical fall with left rib pain. Differential could include contusion versus strain of chest wall versus rib fracture or pneumothorax. X-rays left ribs pending
*Critical Care Note
Total Time (30-74mins, 75-104mins- exclusive of procedures): Not Applicable
Update Note
Update Note:
X-rays left ribs negative for fracture or pneumothorax. Reassured patient. Suspect contusion and chest wall. Recommend open or Tylenol. Stable for discharge
ED Attending Note
-
Portions of this chart may have been created with voice recognition software.� Occasional wrong word or��sound alike� substitutions may have occurred due to the inherent limitations of voice recognition software.
Discharge Plan
Departure
Patient Disposition: Home (Routine Discharge)
Date of Disposition: 07/04/24
Time of Disposition: 15:54
Patient with high blood pressure during this ER visit?: No
Discharge Problem:
Chest wall contusion
Instructions: Contusion (DC)
Prescriptions:
No Action
levothyroxine [Synthroid] 88 MCG tablet
88 mcg PO DAILY
Aspirin Low (Enteric Coated):
81 mg PO DAILY
multivitamin 1 EACH tablet
1 tab PO HS
Vitamin B-12:
1,000 unit PO HS
amlodipine 5 MG tablet
5 mg PO DAILY
metronidazole 500 MG tablet
500 mg PO Q8 Qty: 30 0RF
vancomycin 125 MG capsule
125 mg PO QID Qty: 40 0RF
vancomycin [Vancocin] 250 MG capsule
250 mg PO QID Qty: 28 0RF
polyethylene glycol 3350 17 GRAMS powder in packet
17 grams PO DAILY Qty: 5 0RF
magnesium hydroxide 30 ML suspension
30 ml PO HSPRN PRN (Reason: consitpaiton) Qty: 5 0RF
Referrals:
Kamran Zhao, DO [Family Provider] -
Activity Restrictions/Additional Instructions:
As discussed, there is no fracture or injury to your lung. Avoid heavy lifting and twisting activities. Use ibuprofen or Tylenol for pain. Return if worse otherwise follow-up with your doctor
Interventions
Interventions:
*Risk Screen - Suicide Last Done: 07/04/24 15:48
*General Assessment Last Done: 07/04/24 15:48
*Neglect/Abuse Screening Last Done: 07/04/24 15:48
*ED- Fall Risk Assessment Last Done: 07/04/24 15:48
*ED COVID-19 Vaccine History Last Done: 07/04/24 15:48
ED-Musculoskeletal Assessment Last Done: 07/04/24 15:48
ED- Neurological Assessment Last Done: 07/04/24 15:48
ED-Skin Assessment Last Done: 07/04/24 15:48
Discharge Date and Time
Print Language: KOSOVAN
== END 2024-07-04 17:25 | disposition home or self-care (01) ==
LOC: EMR 14:24
PROVIDERS: EMERGENCY PHYSICIAN Emergency Medicine; FAMILY PHYSICIAN Family Medicine
DX: S20.219A Contusion of unspecified front wall of thorax, initial encounter (principal); W19.XXXA Unspecified fall, initial encounter; Y93.K1 Activity, walking an animal; I10 Essential (primary) hypertension; E03.9 Hypothyroidism, unspecified; D64.9 Anemia, unspecified; Z86.73 Personal history of transient ischemic attack (TIA), and cerebral infarction without residual deficits; Z87.891 Personal history of nicotine dependence; Z90.49 Acquired absence of other specified parts of digestive tract
CPT/HCPCS: 99283; 71101

== ENCOUNTER → 2024-07-13 10:09 | Outpatient (REF) | payer BC, SELFPAY ==
[2024-07-13 11:09] LABS: % Basophils 0.9 % (0-2); % Eosinophils 2.9 % (0-6); % Immature Granulocytes 0.2 % (0-0.5); % Lymphocytes 26.6 % (20.5-51.1); % Monocytes 11.1 % (1.7-9.3); % Neutrophils 58.3 % (42.2-75.2); Absolute Basophils 0.1 10^3/uL (0-0.2); Absolute Eosinophils 0.2 10^3/uL (0-0.7); Absolute Lymphocytes 1.7 10^3/uL (1.2-3.4); Absolute Monocytes 0.7 10^3/uL (0.1-0.6); Absolute Neutrophils 3.8 10^3/uL (1.4-6.5); Hematocrit 37.3 % (37.0-47.0); Hemoglobin 12.6 g/dL (12.0-16.0); Mean Corp Hgb Conc. 33.8 g/dL (33.0-37.0); Mean Corpuscular Hgb 30.7 pg (27.0-31.0); Mean Corpuscular Volume 90.8 fL (81.0-99.0); Mean Platelet Volume 10.1 fL (7.4-10.4); Nucleated Red Blood Cells % 0 %; Platelet Count 323 10^3/uL (130-400); Red Blood Cell Count 4.11 10^6/uL (4.20-5.40); Red Cell Dist. Width 13.6 % (11.5-14.5); White Blood Cell Count 6.6 10^3/uL (4.8-10.8)
[2024-07-13 11:50] LABS: Blood Urea Nitrogen 22 mg/dl (7-17); Calcium 10.7 mg/dl (8.4-10.2); Carbon Dioxide 30 mmol/L (22-30); Chloride 102 mmol/L (98-107); Glucose 91 mg/dl (70-99); Potassium 3.8 mmol/L (3.5-5.1); Sodium 138 mmol/L (135-145); eGFR > 60.00
== END ==
LOC: REG 10:09
PROVIDERS: ATTENDING PHYSICIAN Urology; FAMILY PHYSICIAN Family Medicine
DX: R31.0 Gross hematuria (principal)
CPT/HCPCS: 36415; 80048; 85025; 87086

== ENCOUNTER 2024-07-20 06:02 | Day surgery (SDC) | payer BC, SELFPAY ==
[2024-07-20] VITALS (8 sets, daily range): BP systolic 148–168; BP diastolic 71–84; BMI 22.5
== END 2024-07-20 14:25 | disposition home or self-care (01) ==
LOC: GI 06:02
PROVIDERS: ATTENDING PHYSICIAN Internal Medicine Gastroenterology
DX: K83.1 Obstruction of bile duct (principal); K83.8 Other specified diseases of biliary tract; R93.2 Abnormal findings on diagnostic imaging of liver and biliary tract; K22.89 Other specified disease of esophagus
CPT/HCPCS: 43262; 43261; 43273; 88305; 74330; 76000; C1769

== ENCOUNTER 2024-07-21 18:14 | Inpatient (IN) | payer BC, SELFPAY ==
[2024-07-21] VITALS (8 sets, daily range): BP systolic 109–134; BP diastolic 55–67; BMI 21.6
[2024-07-21 14:57] LABS: % Basophils 0.1 % (0-2); % Eosinophils 0.1 % (0-6); % Immature Granulocytes 0.5 % (0-0.5); % Lymphocytes 15.6 % (20.5-51.1); % Monocytes 10.5 % (1.7-9.3); % Neutrophils 73.2 % (42.2-75.2); Absolute Immature Granulocytes 0.1 10^3/uL (0-0.05); Absolute Lymphocytes 1.6 10^3/uL (1.2-3.4); Absolute Monocytes 1.1 10^3/uL (0.1-0.6); Absolute Neutrophils 7.5 10^3/uL (1.4-6.5); Hematocrit 23.7 % (37.0-47.0); Hemoglobin 8.1 g/dL (12.0-16.0); Mean Corp Hgb Conc. 34.2 g/dL (33.0-37.0); Mean Corpuscular Hgb 30.3 pg (27.0-31.0); Mean Corpuscular Volume 88.8 fL (81.0-99.0); Mean Platelet Volume 9.9 fL (7.4-10.4); Nucleated Red Blood Cells % 0 %; Platelet Count 283 10^3/uL (130-400); Red Blood Cell Count 2.67 10^6/uL (4.20-5.40); Red Cell Dist. Width 13.7 % (11.5-14.5); White Blood Cell Count 10.2 10^3/uL (4.8-10.8)
--- NOTE | 2024-07-21 15:07 | ED.GENMED ---
History of Present Illness
General
Chief Complaint: Abdominal Symptoms
Source: patient and records
Exam Limitations: none
Time Seen by Provider: 07/21/24 14:38
History of Present Illness
History of Present Illness:
74yoF with a history of hypertension, hypothyroidism, and recent diagnosis of bladder cancer presenting with her and daughter for evaluation of weakness. Patient went underwent ERCP with biopsy yesterday due to irregular contour of the
intrahepatic biliary ductal system and high-grade stricture in the common hepatic duct seen on abdomen MRI in June. Patient was initially feeling well after being discharged. She ate dinner and had tea with milk last night. She woke up this
morning not feeling well. She had a fall while getting out of bed. She denies any head strike or loss of consciousness. Patient had some chills and temperature was 100.6. She had a bowel movement which appeared to be dark brown to black in
color. She called her gastroenterology team and was advised to come to the ED for evaluation. While in the triage box, patient had an episode of coffee-ground emesis. Daughter states she was very weak in the waiting room and was unable to keep
her head up.
Past History
Past History
ED Past Medical History: HTN, Hypothyroidism, Other (anemia, TIA, Concussion, C-diff) and Other (C-diff colitis 10/2017)
ED Past Surgical History: and Other (cataracts, right eye surgery); Negative Appendectomy, Bowel resection, Cardiac or Cholecystectomy
Patient has exhibited threatening behavior?: No
PSI?: No
Social History
Tobacco: Former smoker
Alcohol: Occasional
Drug: None
Personal:
Living: with family
Employment: Retired
Family History
Family History: Other (Noncontributory)
Phy Exam
Physical Exam
Physical Exam:
Ill appearing, pale, non-toxic
General Physical Exam
General Presentation: no apparent distress
General Skin: warm, dry and pale
General Habitus: elderly
General Mental: alert
ENT Exam
ENT Exam: normocephalic
Cardiovascular Exam
Cardiovascular Exam: regular rate/rhythm
Pulmonary Exam
Pulmonary Exam: lungs clear, no respiratory distress, no rales, no crackles and no rhonchi
Gastrointestinal Exam
Gastrointestinal Exam: soft, non distended and other (+Upper abdominal tenderness. Abdomen soft, nondistended. No rebound or guarding.)
Stool: black and other (Melena noted on rectal exam.)
Neurological Exam
Neurological Exam: alert
[place] Coma Scale
Eye Opening: Spontaneous
Verbal Response: Oriented
Motor Response: Obeys Commands
GCS Total Score: 15
Skin Exam
Skin Exam: pallor
Psychiatric Exam
Psychiatric Exam: normal mood/affect
Course
Orders/Labs/Results
Orders:
Orders
07/21/24 14:33
Electrocardiogram (*1) Urgent
Reason for Study: Other
Other Reason for Exam: emesis post procedure
EKG- Treatment ONCE
07/21/24 14:45
Type And Crossmatch [Type+Screen] Urgent
CMP [Comprehensive Metabolic Panel] Urgent
Complete Blood Count/With Diff Urgent
Lipase Urgent
Comment: ADD ON
07/21/24 Dinner
NPO
Allow oral meds: Yes
Allow clear liquids: Sips of Clears
07/21/24 15:03
ABO2 Urgent
BBK Wristband Number:
Associate notified that ABO2 has been ordered: [id number]
Date: 07/21/24
Time: 14:54
Assembly
07/21/24 15:05
Pantoprazole [Protonix IV] 80 mg IV NOW STA
07/21/24 15:06
Electrocardiogram (*1) Urgent
Reason for Study: Vertigo / Dizzy
CT Abd/pelvis W Iv Cont Urgent
Comment:
Reason For Exam: abd pain, coffee ground emesis
07/21/24 15:10
CR Chest Portable - 1 View Urgent
Comment:
Reason For Exam: coffee ground emesis
Reason Study Needs to be Portable: Patient Unstable
07/21/24 15:11
Lactate Level [Lactic Acid] Urgent
PTT Urgent
Prothrombin Time Urgent
Troponin I Urgent
07/21/24 16:24
Add On- LAB Urgent
Tests Added?: lipase
07/21/24 17:32
Blood Bank Products [* Blood Bank Products] Urgent
Blood Bank Products: *Packed RBC Leuko(PRBC's)
Quantity: 1
Transfuse Today: Yes
Reason: Bleeding
07/21/24 17:42
Admit/Transfer Patient As Directed
Co-Sign Provider:
Level of Care: Inpatient admission
Assign to:: Medical/Surgical
Physician / Group: rosey
Diagnosis: UGIB
Reason for Hospitalization: UGIB
Expected length of stay greater than two midnights?: Yes
ELOS- Estimated Length of Stay in days: 2
I certify the patient meets the requirements for IP care: Yes
PRN Pain Medication Management As Directed
May give lesser potent ordered pain med per pt: Yes
preference::
Protocol:: Medication orders for pain may be administered in a
manner that supports deferring to patient preference
when the pt is:
- Requesting an ordered lesser potent pain medication.
Least to most potent pain medications are defined
as: acetaminophen < NSAID < tramadol < opioids
(morphine, oxycodone, hydromorphone).
- Requesting a lesser dose of the same medication IF
ORDERED.
- Requesting a less intrusive route of administration
if both routes are prescribed by the provider (PO <
IV).
07/21/24 17:43
Code Status As Directed
Resuscitation Status: Full Code
07/21/24 18:41
GASTROINTESTINAL CONSULT Routine
Consulting Provider: Gavi Simpson
Was physician already notified: Yes
Activity As Directed
Activity Level: As Tolerated
Pneumatic Compression Sleeves As Directed
Type: Knee high
Vital Signs As Directed
Frequency: Per unit guidelines
DX Deep Vein Thrombosis Video Routine
07/21/24 20:00
Pantoprazole [Protonix IV] 40 mg IV BID
07/22/24 06:00
Complete Blood Count/With Diff IN AM
Comprehensive Metabolic Panel IN AM
Abnormal Lab Results
07/21/24 07/21/24
14:45 15:11
RBC 2.67 L 10^6/uL
(4.20-5.40)
Hgb 8.1 L g/dL
(12.0-16.0)
Hct 23.7 L %
(37.0-47.0)
Abs Immat Gran (auto) 0.1 H 10^3/uL
(0-0.05)
Absolute Neuts (auto) 7.5 H 10^3/uL
(1.4-6.5)
Absolute Monos (auto) 1.1 H 10^3/uL
(0.1-0.6)
Lymphocytes % 15.6 L %
(20.5-51.1)
Monocytes % 10.5 H %
(1.7-9.3)
PT 15.2 H Sec
(11.4-14.6)
Sodium 134 L mmol/L
(135-145)
BUN 84 H mg/dl
(7-17)
Creatinine 1.2 H mg/dL
(0.6-1.0)
Glucose 162 H mg/dl
(70-99)
AST 96 H U/L
(14-36)
ALT 96 H U/L
(0-35)
Total Protein 5.2 L g/dl
(6.3-8.2)
Albumin 3.2 L g/dl
(3.5-5.0)
Lipase 472 H U/L
(23-300)
Crossmatch IS Only See Detail
07/21/24 14:45
07/21/24 14:45
Vital Signs
Initial and Last Documented VS:
Initial Vital Signs
Temp Pulse Resp Pulse Ox
97.8 F 75 18 98
07/21/24 14:34 07/21/24 14:34 07/21/24 14:34 07/21/24 14:34
Last Documented Vital Signs
Temp Pulse Resp BP Pulse Ox
97.4 F 88 16 118/55 97
07/21/24 21:26 07/21/24 21:26 07/21/24 21:26 07/21/24 21:26 07/21/24 18:44
MDM/Problems Addressed
Differential Diagnosis Includes:
74yoF here with weakness, dark stool, and fever after having an ERCP yesterday. Also had an episode of coffee ground emesis in the waiting room. Patient is ill-appearing and pale on exam. Vitals stable. Melanotic stool present on rectal exam.
Differential diagnosis includes but is not limited to: GI bleed, acute blood loss anemia, colitis, post ERCP pancreatitis
Initial ED plan: Check cardiac labs, coags, lactate, troponin/EKG, type and screen, and CT abdomen. 80 mg IV Protonix and fluid bolus ordered.
*EKG
Interpreted by ED Provider?: Yes
EKG Intrepretation Date: 07/21/24
Heart Rate: 74
Rate: normal
Rhythm: sinus
[place]: normal axis
Interval: normal interval
QRS Pattern: normal QRS
Ischemia: non-specific ST changes
*Critical Care Note
Total Time (30-74mins, 75-104mins- exclusive of procedures): Not Applicable
Update Note
Update Note:
Hemoglobin 8.1, down from 12.6 last week. BUN 84 suggesting upper GI bleed. Mild transaminitis and lipase elevation noted. Bilirubin is normal. CT shows findings suspicious for a mild gastroenterocolitis as well as constipation. Consent
obtained and 1 unit PRBCs ordered per hospitalist request. GI notified of patient and she was admitted for further management.
ED Attending Note
-
Portions of this chart may have been created with voice recognition software.� Occasional wrong word or��sound alike� substitutions may have occurred due to the inherent limitations of voice recognition software.
Discharge Plan
Departure
Patient Disposition: Admit
Date of Disposition: 07/21/24
Time of Disposition: 17:07
Presentation/result/management discussed w/ accepting MD/DO: Hospitalist
Discharge Problem:
GI bleed
Interventions
Interventions:
*Risk Screen - Suicide Last Done: 07/21/24 18:24
*General Assessment Last Done: 07/21/24 14:34
*Neglect/Abuse Screening Last Done: 07/21/24 14:34
*ED- Fall Risk Assessment Last Done: 07/21/24 14:34
*ED COVID-19 Vaccine History Last Done: 07/21/24 14:34
*Nursing Disposition Last Done: 07/21/24 18:24
WZ-Upleet-Uogtgbiugy Assessment Last Done: 07/21/24 14:34
Discharge Date and Time
Discharge Date/Time: 07/21/24 18:24
[2024-07-21 15:18] LABS: ALT (SGPT) 96 U/L (0-35); AST (SGOT) 96 U/L (14-36); Albumin 3.2 g/dl (3.5-5.0); Alkaline Phosphatase 92 U/L (38-126); Blood Urea Nitrogen 84 mg/dl (7-17); Calcium 10.1 mg/dl (8.4-10.2); Carbon Dioxide 22 mmol/L (22-30); Chloride 103 mmol/L (98-107); Estimated Creatinine Clearance 33 ml/min; Glucose 162 mg/dl (70-99); Potassium 4.2 mmol/L (3.5-5.1); Sodium 134 mmol/L (135-145); Total Bilirubin 0.5 mg/dl (0.2-1.3); Total Protein 5.2 g/dl (6.3-8.2); eGFR 46.91
[2024-07-21] MEDS: PROTONIX IV 80 MG IV (15:22)
[2024-07-21 15:49] LABS: INR 1.17; PT 15.2 Sec (11.4-14.6)
[2024-07-21 15:50] LABS: Lactic Acid 1.6 mmol/L (0.7-2.0)
[2024-07-21 16:02] LABS: Troponin I < 0.012 ng/ml
[2024-07-21 17:26] LABS: Lipase 472 U/L (23-300)
--- NOTE | 2024-07-21 17:46 | HPS.HSE ---
Family Physician
-
Family Physician: Kamran Zhao
Chief Complaint
-
bloody stool
History of Present Illness
74-year-old female past medical history of biliary stricture, hypertension, hypothyroidism, bladder cancer presenting for weakness. Patient underwent ERCP with biopsy yesterday due to irregular contour of the intrahepatic biliary ductal system and
high-grade stricture of the common hepatic duct seen on MRI of the abdomen in June. She felt well after being discharged and ate dinner and had tea with milk last night. She woke up this morning not feeling well. A fall while getting out of
bed. Denies head strike or loss of conscious. She did not feel well this morning and had a temperature of 100.6. She had a bowel movement which appeared to be dark brown to black in color. 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
the emergency room. She had an episode of coughing and emesis of black material in the triage.
She is a former smoker. She drinks alcohol only very rarely.
Medical History
Past Medical History
Past Medical History: Reports Other (biliary stricture, hypertension, hypothyroidism, bladder cancer)
Past Surgical History: Reports None
Social History
Tobacco: Non-smoker
Alcohol: Occasional
Drug: None
Family History
Family History: Not pertinent
Allergies / Home Medications
Allergies reflects when Allergies were last updated in [facility].
Home Medications with original date entered in [facility]
Allergy/Medication List:
Allergies
Allergy/AdvReac Type Severity Reaction Status Date / Time
propoxyphene HCl Allergy Unknown Verified 07/20/24 09:02
[From Darvon]
Home Medications
levothyroxine 88 mcg tablet (Synthroid) 88 mcg PO DAILY 08/31/09
Aspirin Low (Enteric Coated): 81 mg PO DAILY 07/25/16
Vitamin B-12: 1,000 unit PO HS 07/25/16
multivitamin 1 tab PO HS 07/25/16
amlodipine 5 mg tablet 5 mg PO DAILY 11/06/17
Florastor 2 cap PO DAILY 07/20/24
Vitamin D (with calcium) 1 tab PO DAILY 07/20/24
sertraline 50 mg tablet (Zoloft) 50 mg PO DAILY 07/20/24
simvastatin 5 mg tablet 5 mg PO DAILY 07/20/24
Review of Systems
-
History Source: Patient
A 12 point ROS was completed and negative except as noted: Yes
Constitutional: Reports No Symptoms
EENT: Reports No Symptoms
Respiratory: Reports No Symptoms
Cardiac: Reports No Symptoms
Abdomen/GI: Reports No Symptoms
: Reports No Symptoms
Musculoskeletal: Reports No Symptoms
Skin: Reports No Symptoms
Neurological: Reports No Symptoms
Endocrine: Reports No Symptoms
Hematologic/Lymphatic: Reports No Symptoms
Psych: Reports No Symptoms
Physical Exam
Vital Signs
Vital Signs
Temp Pulse Resp BP Pulse Ox
97.8 F 88 13 132/57 96
07/21/24 14:34 07/21/24 17:30 07/21/24 14:46 07/21/24 17:00 07/21/24 17:15
Physical Exam
General: Well Developed, Well Nourished and No Apparent Distress
HEENT: NormoCephalic, Moist mucous membranes and Atraumatic
Respiratory: Clear
Cardiac: S1/S2 and Regular Rhythm; No Murmur or Rub
GI: Soft, Non Distended, Normal Bowel Sounds and Tender (epigastric ); No Organomegaly
Rectal: Deferred by Provider
Musculoskeletal: No Clubbing, No Cyanosis and No Edema
Skin: No Rash
Neuro: Nonfocal/grossly intact
Laboratory Results
-
07/21/24 14:45
07/21/24 14:45
Laboratory Results
PT 15.2 Sec (11.4-14.6) H 07/21/24 15:11
INR 1.17 07/21/24 15:11
APTT 24.0 Sec (23.4-35.0) 07/21/24 15:11
Lactic Acid 1.6 mmol/L (0.7-2.0) 07/21/24 15:11
Total Bilirubin 0.5 mg/dl (0.2-1.3) 07/21/24 14:45
AST 96 U/L (14-36) H 07/21/24 14:45
ALT 96 U/L (0-35) H 07/21/24 14:45
Alkaline Phosphatase 92 U/L (38-126) 07/21/24 14:45
Troponin I < 0.012 ng/ml 07/21/24 15:11
Lipase 472 U/L (23-300) H 07/21/24 14:45
Data Reviewed
-
Lab Data: Labs Reviewed by me
Old Records: Reviewed
Impression/Plan
-
IMPRESSION:
PLAN:
# Post ERCP upper GI bleed
-Hemoglobin 8.1 from 12.6 on 07/13
-CT scan suggesting mild gastroenterocolitis
-Type and screen, check blood consent
-Hold aspirin
-Protonix 40 twice daily
-N.p.o.
-1 unit of blood
-GI consulted
# Transaminitis could be transient from post ERCP, doubt developing post ERCP pancreatitis
-Tenderness epigastric region, but belly is benign no signs of perforation
-Hepatocellular pattern
-Lipase of 470
-CT abdomen pelvis suggesting mild gastroenterocolitis
-Hold statin
# Intrahepatic biliary ductal system abnormality/high-grade stricture of common hepatic duct
-Underwent ERCP with biopsy yesterday
Essential hypertension
-Continue amlodipine
Hypothyroidism
-Continue levothyroxine
Newly diagnosed bladder cancer
-Supposed to have cystoscopy next week
Hypothyroidism
-Continue levothyroxine
-Hyperlipidemia
-Hold statin
Anxiety/depression
-Continue sertraline
Full code
DVT prophylaxis�SCDs
N.p.o.
[2024-07-21] MEDS: PROTONIX IV 40 MG IV (20:08)
[2024-07-21] MEDS: NSS (PRESERVATIVE FREE) 10 ML IV (20:08)
[2024-07-22] VITALS (72 sets, daily range): BP systolic 71–160; BP diastolic 37–80; BMI 21.4
--- NOTE | 2024-07-22 00:37 | W.PN.UPDATE ---
Update Note
Progress Note Update
-Patient had a large bm that mix with dark stool/ blood. BP is soft, patient looks so pale and weak. abdomen is soft not distended, and not firm on exam.
-one unit of blood just finished. Will check hgb level.
-Start Patient on PPI drip, and IVF maintenance 100cc/hr started.
-Hgb level dropped down to 7.6 from 8.1. Will order 2nd unit of blood and will monitor h&h q 6hrs.
- another episode of dark stool, BP dropped down, currently bp is 71/50 while the patient on IVF, patient is dizzy. Staff was instructed to open IVF wide, and continue with the 2nd unit of blood. .
-Discussed with the varnish finisher, will get a stat CTA abdomen and pelvis, and transfer to ICU for close monitoring. Daughter/ Milli updated.
[2024-07-22 01:00] LABS: Hematocrit 21.8 % (37.0-47.0); Hemoglobin 7.8 g/dL (12.0-16.0)
[2024-07-22] MEDS: PROTONIX 100 IV ×3 (01:29→22:54)
[2024-07-22] MEDS: NSS 1000 IV (01:30)
[2024-07-22 02:20] LABS: Hematocrit 21.4 % (37.0-47.0); Hemoglobin 7.6 g/dL (12.0-16.0)
--- NOTE | 2024-07-22 04:32 | PTCARENOTE ---
Received pt from 4E RN, pt has PRBCs, Protonix and NS bolus infusing. Aox3, denies pain, room air, lungs clear. VSS, skin is intact. CT abd completed, pending read.
[2024-07-22 07:34] LABS: Lactic Acid 1.3 mmol/L (0.7-2.0)
[2024-07-22] MEDS: NSS (PRESERVATIVE FREE) IV ×2 (07:34→19:42)
--- NOTE | 2024-07-22 07:34 | CON.INTV ---
Consultation
Consultation Request
Date/Time Consultation Requested: 07/22/2024
Date/Time Consultation Performed: 07/22/2024
Requesting Provider: Eris Zaragoza
Performing Provider: Brandie Quintana
Reason for Consultation: Hypotension
Medical History
-
Chief Complaint: Dizziness, bloody stools
History of Present Illness:
Patient is a very pleasant 74-year-old female who was diagnosed with biliary stricture on abdominal MRI in June 2024. Patient has prior history of hypertension, hypothyroidism. Patient had an ERCP performed with biopsy, biliary sphincterotomy
on 07 20 and had CBD exploration which otherwise appeared unremarkable followed by biopsy of upper third of CBD. Patient was subsequently discharged home and was feeling well. The following morning, patient felt weak and had a dark brown/black
bowel movement. She contacted her cable lacer and was instructed to come to the emergency room. Patient reportedly had an episode of coughing in the emergency room with small volume phlegm removed which appeared dark.
She was admitted to the floor and developed progressive hypotension with additional bowel movements in the hospital which appeared dark brown/black. In view of hypotension, she was transferred to ICU for closer monitoring and further management.
General Office Worker service was consulted for further recommendations.
Past Medical History: Reports Other (biliary stricture, hypertension, hypothyroidism, bladder cancer)
Past Surgical History: Reports None
Social History
Tobacco: Non-smoker
Alcohol: Occasional
Drug: None
Family History
Family History: Not pertinent
Social History
Tobacco: Non-smoker
Allergies / Home Medications
Allergies
Allergy/AdvReac Type Severity Reaction Status Date / Time
propoxyphene HCl Allergy Unknown Verified 07/20/24 09:02
[From Darvon]
Home Medications
�Medication �Instructions �Recorded �Confirmed �Last Taken �Type
levothyroxine 88 mcg tablet 88 mcg PO DAILY 08/31/09 07/21/24 07/21/24 History
(Synthroid)
amlodipine 5 mg tablet 5 mg PO DAILY 11/06/17 07/21/2407/21/25 History
sertraline 50 mg tablet (Zoloft) 50 mg PO HS 07/20/24 07/21/24 07/20/24 History
simvastatin 5 mg tablet 5 mg PO HS 07/20/24 07/21/24 07/20/24 History
vit A-vit [id number] lozenges 1 lori PO DAILYPRN PRN cold symptoms 07/21/24 07/21/24 07/20/24 History
(Zinc (with Vitamins A and C)
Lozenges)
Review of Systems
-
History Source: Patient
Constitutional: Fatigue
EENT: No Symptoms
Respiratory: No Symptoms
Cardiac: No Symptoms
Abdomen/GI: Abdominal Pain (Epigastric tenderness) and Nausea
: No Symptoms
Skin: No Symptoms
Neuro: No Symptoms
Vitals / Labs / Diagnostic Testing
Vital Signs
Temp Pulse Resp BP Pulse Ox
99.2 F 95 15 124/62 100
07/22/24 07:00 07/22/24 05:59 07/22/24 05:59 07/22/24 05:59 07/22/24 05:00
Laboratory Results
07/21/24
15:11
PT 15.2 H
INR 1.17
APTT 24.0
Diagnostic Testing:
Physical Exam
-
HEENT: Normocephalic, Other (Dry looking mucosa) and Other (Pale conjunctiva)
Cardiovascular: S1/S2
Respiratory: Clear
GI: Soft and Tender (Mild epigastric tenderness, without rebound or guarding)
Neurology: Awake
Skin: Warm
Assessment
-
#1. Acute blood loss anemia. Suspect related to post sphincterotomy GI bleed. Hb 12.6 1 week ago, 8.1 on admission, most recent 7.6. Platelets and INR normal.
CT Abd/Pelvis 06/2024: CT findings suspicious for a mild gastroenterocolitis. Moderate to large volume stool in the sigmoid colon and rectum suggesting a degree of constipation.
Mild urinary bladder wall thickening. Recommend correlation with a u/a.
-Responded well to IV fluids
-Serial H&H
-S/p 80 mg IV PPI, continue 40 mg IV PPI twice daily
-Transfused 2 additional units in view of continued drop in hemoglobin, GI service on case, plan for endoscopy today for further evaluation
#2. Hypotension. Related to acute blood loss anemia
-Responded well to volume resuscitation, lactate 1.3 down from 1.6 yesterday
-Give additional Ringer lactate 500 mL bolus followed by continued infusion, 2 units of blood transfusion
#3. Abnormal LFTs with concern for CBD stricture
MRI Abd 06/2024: Generalized irregular contour to the intrahepatic biliary ductal system, which is mildly to moderately distended. High-grade stricture in the common hepatic duct. 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 A malignant
stricture in the common hepatic duct is not excluded. ERCP should be considered for further evaluation, if not already performed.
-s/p ERCP and biliary sphincterotomy on 07/20/2024. Patient had normal-appearing biliary duct and also had a biopsy performed in the upper third of the main bile duct, pathology pending
-Patient has abnormal LFTs, mild as well as elevated lipase (472 on admission), otherwise does not have nausea, vomiting or abdominal pain. CT abdomen pelvis, does not suggest pancreatic edema
-Continue to monitor closely for post ERCP pancreatitis
-Continue IV fluid resuscitation and monitor LFTs and lipase closely
#4. Bladder tumor
-Patient has a recent diagnosis of bladder tumor, is scheduled for excision on Tuesday
-Anticipate patient should be stable for the surgery prior to that, otherwise will need to reschedule
DVT prophylaxis with SCDs
Critical Care time 68 mins -- The patient is admitted for acute critical illness for the treatment of vital organ failure and/or prevention of further life-threatening conditions. Total care includes time spent in review of history, physical exam,
medications, hemodynamic/ventilator parameters, laboratory data, imaging and discussion with house staff, pharmacy, respiratory therapy, elementary art teacher, and nursing.
Data:
CXR 06/2024: Unremarkable
Lexiscan, 08/2023: Negative for ischemia
ECHO 08/2023:
Small LV size and function with no regional wall motion abnormalities.
LVEF is 65-70% by visual estimation.
Normal diastolic function.
Normal right ventricular size and function.
Mild tricuspid regurgitation.
Estimated pulmonary artery pressure of 20 mmHg. Assuming a right atrial
pressure of 3 mmHg.
Compared to [facility] report on May 24, 2000, no significant change.
--- NOTE | 2024-07-22 07:38 | W.PN.HOSP.TC ---
Today's Communication/Plan
-
consider transfusion of another 1-2 units
serial H&H
Assessment / Plan
Assessment / Plan
pt is a 74 year old female
acute anemia due to acute blood loss from Post ERCP upper GI bleed--HGB 07/13/24 was 12.6, now down to 7.6--s/p 2 units pRBC--may need more--CT scan suggesting mild gastroenterocolitis--NPO/IVF--PPI drip--serial H&H--await GI input--hold asa
Transaminitis could be transient from post ERCP, doubt developing post ERCP pancreatitis (lipase only 472 and no abdominal pain)--Hepatocellular pattern--CT abdomen pelvis suggesting mild gastroenterocolitis--Hold statin
Intrahepatic biliary ductal system abnormality/high-grade stricture of common hepatic duct--Underwent ERCP with biopsy 07/20/24--path pending
Essential hypertension--Continue amlodipine
Hypothyroidism--Continue levothyroxine
Newly diagnosed bladder cancer--Supposed to have cystoscopy next week
Hypothyroidism--Continue levothyroxine
Hyperlipidemia--Hold statin
Anxiety/depression--Continue sertraline
DVT proph--SCDs
Code status--Full code
Anticipated Discharge: > 48 hours
Subjective/Interval History
-
Date of Service: July 22, 2024
denies pain but still having BMs
Objective Data
-
Labs:
Laboratory Results
07/22/24 07/22/24 07/22/24
00:20 02:03 07:10
WBC Pending
Hgb 7.8 L 7.6 L Pending
Hct 21.8 L 21.4 L
Plt Count
PT
INR
APTT
Sodium
Potassium
Chloride
Carbon Dioxide
BUN
Creatinine
Glucose
Calcium
Total Bilirubin
AST
ALT
Alkaline Phosphatase
07/22/24 07/22/24 07/22/24
07:10 07:10 14:00
WBC
Hgb Pending Pending
Hct Pending Pending Pending
Plt Count Pending
PT Pending
INR Pending
APTT Pending
Sodium Pending
Potassium Pending
Chloride Pending
Carbon Dioxide Pending
BUN Pending
Creatinine Pending
Glucose Pending
Calcium Pending
Total Bilirubin Pending
AST Pending
ALT Pending
Alkaline Phosphatase Pending
Vital Signs:
max temp for 24 hours
07/22/24
04:54
Temp 99.2 F
Vital Signs
Temp Pulse Resp BP Pulse Ox
99.2 F 95 15 124/62 100
07/22/24 07:00 07/22/24 05:59 07/22/24 05:59 07/22/24 05:59 07/22/24 05:00
I&O
07/21/24 07/22/24 07/23/24
06:59 06:59 06:59
Intake Total 730 / 730
Output Total 500 / 500
Balance 230 / 230
Review of Systems
-
All other systems: Reviewed and negative
Physical Exam
-
General: Other (appears ill--pale and washed out)
HEENT: Normocephalic and Atraumatic
Respiratory: Clear to Auscultation; Negative Wheezes or Rhonchi
Cardiac: Regular Rhythm and S1/S2
GI: Soft, Nontender and Nondistended; Negative Normal Bowel Sounds (hyperactive)
Musculoskeletal: No Clubbing, No Cyanosis and No Edema
Skin: Warm
Neuro: Awake and Alert
[2024-07-22 07:55] LABS: Hematocrit 19.4 % (37.0-47.0); Hemoglobin 6.8 g/dL (12.0-16.0); Mean Corp Hgb Conc. 35.1 g/dL (33.0-37.0); Mean Corpuscular Hgb 30.2 pg (27.0-31.0); Mean Corpuscular Volume 86.2 fL (81.0-99.0); Mean Platelet Volume 10.3 fL (7.4-10.4); Platelet Count 146 10^3/uL (130-400); Red Blood Cell Count 2.25 10^6/uL (4.20-5.40); Red Cell Dist. Width 14.8 % (11.5-14.5); White Blood Cell Count 7.9 10^3/uL (4.8-10.8)
[2024-07-22 08:08] LABS: INR 1.21; PT 15.6 Sec (11.4-14.6)
[2024-07-22 08:09] LABS: APTT 24.9 Sec (23.4-35.0)
[2024-07-22 08:20] LABS: ALT (SGPT) 45 U/L (0-35); AST (SGOT) 31 U/L (14-36); Albumin 2.1 g/dl (3.5-5.0); Alkaline Phosphatase 58 U/L (38-126); Amylase 68 U/L (30-110); Blood Urea Nitrogen 87 mg/dl (7-17); Calcium 8.4 mg/dl (8.4-10.2); Carbon Dioxide 19 mmol/L (22-30); Chloride 115 mmol/L (98-107); Estimated Creatinine Clearance 36 ml/min; Glucose 135 mg/dl (70-99); Lipase 242 U/L (23-300); Magnesium 2.2 mg/dl (1.6-2.3); Phosphorus 3.4 mg/dl (2.5-4.5); Potassium 3.5 mmol/L (3.5-5.1); Sodium 140 mmol/L (135-145); Total Bilirubin 0.3 mg/dl (0.2-1.3); Total Protein 3.7 g/dl (6.3-8.2); eGFR 52.08
[2024-07-22] MEDS: LR 500 IV (08:35)
--- NOTE | 2024-07-22 09:00 | PTCARENOTE ---
Received pt @ change of shift. Pt. drowsy, awakens to verbal stim, ox3, denies pain. SR/ST on monitor. Normotensive. SPO2 99%. Afebrile. +BS, abd soft/tender. Cont of black tarry stool this AM; christian care provided. Hgb resulted critical- 6.8
this AM. MD team, Dr. Burr, Dr. Quintana, and Dr. Simpson aware of critical hgb and black stool. Further orders received. Family @ bedside, updated. Instructed on how to report care concerns and call lopez in reach.
--- NOTE | 2024-07-22 09:09 | CON.GI ---
Consultation
-
Date/Time Consultation Requested: 07/22/24
Date/Time Consultation Performed: 07/22/24
Requesting Provider:
Performing Provider:
Reason for Consultation: melena
Medical History
Chief Complaint / HPI
Chief Complaint: melena
History of Present Illness:
Umu was seen in consultation for melena which started Tuesday. She had ERCP with Dr. Chauhan on 07/20/2024 for abnormal MRCP showing common hepatic dilation, biliary sphincterotomy was performed, bile duct exploration with spyglass
cholangioscope was done and biopsy in the upper third of the main bile duct performed. Postprocedure she reports feeling well. Tuesday night, she did report having some nausea and discomfort in the abdomen, chills, Tuesday morning she did not feel
good and had a black stool. She was asked to come to the emergency room after I spoke to her. In the emergency room, she had couple of episodes of coffee-ground emesis and she also had melena and admitted to the ICU. On admission, hemoglobin was
8.1, down from 12.6 07/13/2024 and this morning at 6.8.ALT was slightly elevated at 45. Lipase within normal limits. Creatinine of 1.1. CT scan of the abdomen and pelvis with IV contrast showing Moderate large volume stool in the sigmoid colon
and rectum, mild diffuse wall thickening of the small bowel, colon and stomach suggesting gastric colitis. No evidence of active GI bleeding noted. She is currently on IV Protonix, Received 2 units of packed red blood cells last night and getting
1 this morning.
She is a 73-year-old female with a history of TIA, hypertension, hypothyroidism and C. difficile colitis (2018) to was seen in the office by Dr. Machado in June due to concerns of recurrent colitis. She was subsequently also diagnosed with
bladder cancer and is going to follow-up with a urologist this coming .
She was seen in [place] emergency room on 03/16/2024 with complaints of hematuria and suprapubic discomfort, CT scan with concerns of possible colitis, instructed to come see GI for further evaluation.� On prior CT, she was noted to have biliary
ductal dilation and subsequently had MRI with MRCP in June that showed generalized irregular contour to the intrahepatic biliary ductal system and mild to moderately distended. High-grade stricture of the common hepatic duct likely representing
sclerosing cholangitis noted.
She does report history of constipation. She does admit to occasionally having lower abdominal pain, in a band-like distribution, improved when she fully evacuates her bowels. Otherwise, she denies any dairrhea, melena, hematochezia or unintentional
weight loss.� Last colonoscopy with Dr. Harding in 2016, normal colon. No previous history of GI bleeding.
Labs 03/16/24: WBC 5.7, Hgb 12.2, MCV 91.1, Plt 300, K 3.3, BUN 24, Cr. 1.0, Ca 10.9, Albumin 4.1, Tbili 0.4, AST 30, ALT 20, Alk phos 62
UA negative�
CT A/P with IV Contrast (03/16/24):�
1.� �Mild diffuse urinary bladder wall thickening (either acute or chronic cystitis).
2.� �Moderate to large amount of fecal material throughout the colon consistent with CONSTIPATION.
3.� �Mild diffuse colonic wall thickening suggesting a MILD ACUTE COLITIS.
4.� �Mild to moderate diffuse intrahepatic biliary dilatation which appears unchanged (possibly primary biliary cholangitis or sclerosing cholangitis).
5.� �Moderate atherosclerotic plaque in the abdominal aorta.
6.� �Grade 1 anterolisthesis of L4 on L5 secondary to severe facet joint arthrosis.
7.� �Moderate discogenic degenerative disease at L5/S1.
8.� �Mild cardiomegaly.
Past Medical History
Past Medical History: HTN, Hypothyroidism and Other (History of common hepatic duct high-grade stricture status post ERCP, recent diagnosis of bladder cancer)
Past Surgical History: None
Social History
Tobacco: Non-Smoker
Alcohol: None
Family History
Family History: Reviewed & Not Pertinent
Allergies / Home Medications
Allergy/AdvReac Type Severity Reaction Status Date / Time
propoxyphene HCl Allergy Unknown Verified 07/20/24 09:02
[From Darvon]
�Medication �Instructions �Recorded
levothyroxine 88 mcg tablet 88 mcg PO DAILY Thyroid 08/31/09
(Synthroid)
amlodipine 5 mg tablet 5 mg PO DAILY Blood Pressure 11/06/17
sertraline 50 mg tablet (Zoloft) 50 mg PO HS Mental Health/Anxiety 07/20/24
simvastatin 5 mg tablet 5 mg PO HS High Cholesterol 07/20/24
vit A-vit [id number] lozenges 1 lori PO DAILYPRN PRN cold symptoms 07/21/24
(Zinc (with Vitamins A and C)
Lozenges)
Review of Systems
-
All other systems: A 12 pt ROS was Negative except as stated above in HPI
Vital Signs
Temp Pulse Resp BP Pulse Ox
99.2 F 87 15 115/62 98
07/22/24 07:00 07/22/24 08:01 07/22/24 08:01 07/22/24 08:01 07/22/24 08:01
Physical Exam
Exam
HEENT: Normocephalic
Cardiac: S1/S2 and Regular Rhythm
GI: Soft and Tender (Discomfort on palpation in the epigastric area)
Neuro: AO x 3
Results
WBC 7.9 10^3/uL (4.8-10.8) 07/22/24 07:10
Hgb 6.8 g/dL (12.0-16.0) L* 07/22/24 07:10
Hgb Cancelled 07/22/24 07:10
Hct 19.4 % (37.0-47.0) L* 07/22/24 07:10
Hct Cancelled 07/22/24 07:10
MCV 86.2 fL (81.0-99.0) 07/22/24 07:10
Plt Count 146 10^3/uL (130-400) D 07/22/24 07:10
Absolute Neuts (auto) 7.5 10^3/uL (1.4-6.5) H 07/21/24 14:45
PT 15.6 Sec (11.4-14.6) H 07/22/24 07:10
INR 1.21 07/22/24 07:10
APTT 24.9 Sec (23.4-35.0) 07/22/24 07:10
Sodium 140 mmol/L (135-145) 07/22/24 07:10
Potassium 3.5 mmol/L (3.5-5.1) 07/22/24 07:10
Chloride 115 mmol/L (98-107) H 07/22/24 07:10
Carbon Dioxide 19 mmol/L (22-30) L 07/22/24 07:10
BUN 87 mg/dl (7-17) H 07/22/24 07:10
Creatinine 1.1 mg/dL (0.6-1.0) H 07/22/24 07:10
Calcium 8.4 mg/dl (8.4-10.2) D 07/22/24 07:10
Total Bilirubin 0.3 mg/dl (0.2-1.3) 07/22/24 07:10
AST 31 U/L (14-36) 07/22/24 07:10
ALT 45 U/L (0-35) H 07/22/24 07:10
Alkaline Phosphatase 58 U/L (38-126) 07/22/24 07:10
Amylase 68 U/L (30-110) 07/22/24 07:10
Lipase 242 U/L (23-300) 07/22/24 07:10
Diagnostic Image Results:
Prior GI Procedures:
EGD:
Colonoscopy:
Assessment / Plan
-
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
and presenting with coffee-ground emesis and melena, significant drop in hemoglobin suggesting active GI bleeding.
-Melena, likely post sphincterotomy bleeding, unusual to have significant bleeding with this degree of drop in hemoglobin, patient not on any blood thinners.
Monitor H&H, transfuse as needed.
Will do upper endoscopy to evaluate the source of bleeding and control it.
Continue Protonix IV drip.
Will monitor closely.
-Suspicion for sclerosing cholangitis, follow-up with Dr. Machado as outpatient in 6 to 8 weeks.
-Recent diagnosis of bladder cancer, going to follow-up with her urologist as well.
-
-
Thank you for consultation and allowing me to participate in the patient's care. Please call the occupational therapist assistant GI physician during the after hours with any questions or concerns.
[2024-07-22] MEDS: LR 1000 IV ×2 (09:12→19:14)
[2024-07-22 09:34] LABS: % Basophils 0.1 % (0-2); % Immature Granulocytes 0.5 % (0-0.5); % Lymphocytes 18.3 % (20.5-51.1); % Monocytes 10.8 % (1.7-9.3); % Neutrophils 70.3 % (42.2-75.2); Absolute Lymphocytes 1.4 10^3/uL (1.2-3.4); Absolute Monocytes 0.9 10^3/uL (0.1-0.6); Absolute Neutrophils 5.6 10^3/uL (1.4-6.5); Nucleated Red Blood Cells % 0 %
--- NOTE | 2024-07-22 11:26 | PTCARENOTE ---
Report given to GI oven laborer. Pt. transferred via bed to GI lab w 2nd unit of PRBC transfusing- see sheet, GI lab updated. Awaiting report.
--- NOTE | 2024-07-22 13:00 | PTCARENOTE ---
Report taken from GI laboratory geneticist; no active bleed found during procedure per report. Pt transferred back to unit via bed w RN x2. Pt. inc of lg amt of black tarry stool; complete hygiene provided and pt. assisted w repositioning in bed. Call jessica salcedo in
reach.
[2024-07-22 14:34] LABS: Hemoglobin 9.6 g/dL (12.0-16.0)
[2024-07-22 14:39] LABS: Hematocrit 28.1 % (37.0-47.0)
--- NOTE | 2024-07-22 16:20 | CM ---
review manager reviewed patient's chart and met with patient and patient lives with her spouse in a 2 story home patient is independent with adl's and ambulation, no dme, patient drives, patient would benefit from PT/OT evaluation.
PCP: Dr. Kamran Zhao
Pharmacy [facility]
Plan; Home with spouse when stable.
--- NOTE | 2024-07-22 16:40 | PTCARENOTE ---
Afternoon hgb resulted 9.6, Dr. Burr made aware. 2 units on hold for GI lab cancelled per orders. Plan next hgb check @ 1999. Pt. remains strict NPO w IVF and Protonix gtt. Family @ bedside, updated. Call jessica salcedo in reach.
[2024-07-22 19:49] LABS: Hemoglobin 8.5 g/dL (12.0-16.0)
--- NOTE | 2024-07-22 19:50 | PTCARENOTE ---
Received patient drowsy, wakes to verbal stimuli. AAOx3, denies pain, following commands, family at bedside. Normal sinus 60s-70s, BP stable, normothermic, palpable radial and pedal pulses b/l. 98% on room air, lung sounds clear. Abdomen soft,
round, nontender, bedpan for BM. Purewick in place draining yellow urine. PIVs patent, WNL. LR and protonix gtt ongoing per order. Call lopez within reach.
[2024-07-23] VITALS (20 sets, daily range): BP systolic 111–138; BP diastolic 46–91; PULSE 73; O2SAT 98; BMI 22.2; BMI 22.4
--- NOTE | 2024-07-23 00:16 | PTCARENOTE ---
CHG bath done, purewick replaced, sat patient up in chair position. Patient brushed teeth. Call lopez within reach, otherwise patient assessment unchanged from previous.
[2024-07-23] MEDS: LR 1000 IV (04:21)
--- NOTE | 2024-07-23 04:24 | PTCARENOTE ---
Patient assessment unchanged from previous, call lopez within reach. Labs sent.
[2024-07-23 04:34] LABS: Hematocrit 23.8 % (37.0-47.0); Hemoglobin 7.8 g/dL (12.0-16.0); Mean Corp Hgb Conc. 32.8 g/dL (33.0-37.0); Mean Corpuscular Hgb 29.3 pg (27.0-31.0); Mean Corpuscular Volume 89.5 fL (81.0-99.0); Platelet Count 109 10^3/uL (130-400); Red Blood Cell Count 2.66 10^6/uL (4.20-5.40); Red Cell Dist. Width 15.6 % (11.5-14.5); White Blood Cell Count 9.5 10^3/uL (4.8-10.8)
[2024-07-23 04:40] LABS: PT 14.5 Sec (11.4-14.6)
[2024-07-23 04:58] LABS: ALT (SGPT) 29 U/L (0-35); AST (SGOT) 21 U/L (14-36); Albumin 2.1 g/dl (3.5-5.0); Alkaline Phosphatase 54 U/L (38-126); Blood Urea Nitrogen 47 mg/dl (7-17); Calcium 8.8 mg/dl (8.4-10.2); Carbon Dioxide 24 mmol/L (22-30); Chloride 120 mmol/L (98-107); Estimated Creatinine Clearance 40 ml/min; Glucose 110 mg/dl (70-99); Magnesium 2.2 mg/dl (1.6-2.3); Potassium 3.4 mmol/L (3.5-5.1); Sodium 145 mmol/L (135-145); Total Bilirubin 0.4 mg/dl (0.2-1.3); Total Protein 3.7 g/dl (6.3-8.2); eGFR 58.39
[2024-07-23] MEDS: KCL 270 MEQ IV (05:40)
[2024-07-23] MEDS: NSS (PRESERVATIVE FREE) IV (07:36)
[2024-07-23] MEDS: PROTONIX 100 IV ×2 (08:16→18:45)
--- NOTE | 2024-07-23 08:20 | W.PN.INTV ---
Today's Communication / Plan
Recommendations
Serial H&H, transfusion to keep Hb >7 g/dL, keep platelets >50k + INR <1.8
Defer diet to GI --> pt currently NPO
Pain control
Up OOB as tolerated
Encouraged incentive spirometer use q1hr while awake
Continue to trend H&H and if remains stable then will downgrade out of ICU to telemetry. Once transferred to telemetry then we will sign off. Please call back with any questions or concerns.
Assessment
-
#1. Acute blood loss anemia. Suspect related to post biliary sphincterotomy GI bleed (ERCP on 07/20/2024). Hb 12.6 1 week ago, 8.1 on admission, most recent 7.8. INR WNL; platelets are low (<150)
CT Abd/Pelvis 06/2024: CT findings suspicious for a mild gastroenterocolitis. Moderate to large volume stool in the sigmoid colon and rectum suggesting a degree of constipation.
Mild urinary bladder wall thickening. Recommend correlation with a u/a.
-Responded well to IV fluids
-Serial H&H and transfuse to keep H&H >7 g/dL, and keep platelets >50k; goal INR<1.8
-s/p 80 mg IV PPI --> now on PPI gtt --> defer to GI to changing to intermittent dosing
-Continue IV iron per GI
-Transfuse a total of 4 units PRBC since admission, with last unit given on 07/22/2024 at 11:05 AM
-Patient underwent EGD on 07/22/2024 showing coffee-ground in the gastric body and blood in the duodenum with no active bleeding lesions seen
#2. Hypotension. Related to acute blood loss anemia
-Now resolved s/p IVF and blood TRX x 4 units PRBC
-Lactate normal since admission
#3. Abnormal LFTs with concern for CBD stricture
MRI Abd 06/14/2024: Generalized irregular contour to the intrahepatic biliary ductal system, which is mildly to moderately distended. High-grade stricture in the common hepatic duct. 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 A malignant
stricture in the common hepatic duct is not excluded. ERCP should be considered for further evaluation, if not already performed.
-s/p ERCP and biliary sphincterotomy on 07/20/2024. Patient had normal-appearing biliary duct and also had a biopsy performed in the upper third of the main bile duct, pathology shows no tumor or inflammation identified with columnar mucosa with
extensive epithelial denudation
-LFTs are now normal as of 07/23/2024; lipase normal as of 07/22/2024, although was elevated to 472 on admission --> pt did not have nausea, vomiting or abdominal pain. CT abdomen pelvis does not suggest pancreatic edema
-Continue to monitor closely for post ERCP pancreatitis
-IVF now being stopped (was on LR) ---> defer diet to GI
#4. Bladder tumor
-Patient has a recent diagnosis of bladder tumor, is scheduled for excision on Tuesday (07/27/2024)
-Anticipate patient should be stable for the surgery prior to that, otherwise will need to reschedule
DVT prophylaxis with SCDs
Continue to trend H&H and if remains stable today then will downgrade out of ICU to telemetry. Once transferred to telemetry then we will sign off. Please call back with any questions or concerns.
Total time spent today was 57 minutes for this encounter. Time includes reviewing laboratory test/imaging results, reviewing pertinent medical records, obtaining and reviewing medical history, performing an appropriate exam, ordering medications,
tests and procedures. Time also includes documentation of this encounter, coordinating patient care and communicating with other healthcare professionals. Total time does not include separately billed tests performed on this date of service.
Data:
CXR 06/2024: Unremarkable
Lexiscan, 08/2023: Negative for ischemia
ECHO 08/2023:
Small LV size and function with no regional wall motion abnormalities.
LVEF is 65-70% by visual estimation.
Normal diastolic function.
Normal right ventricular size and function.
Mild tricuspid regurgitation.
Estimated pulmonary artery pressure of 20 mmHg. Assuming a right atrial
pressure of 3 mmHg.
Compared to [facility] report on May 24, 2000, no significant change.
CTA abdomen/pelvis with/without contrast 07/22/2024:
1. No CT evidence for active GI bleed.
2. Mild constipation. No other significant abnormality identified in the abdomen or pelvis within the limits of this exam
Subjective Dataa
Subjective Data
Date of Service:
Date of Service: July 23, 2024
Chief Complaint: [employer] Operator Follow Up
Subjective:
Pt seen this AM. Sitting in chair in NAD. No BM overnight. She feels tired, no abd pain. She has a mild sore throat. Remains on PPI gtt. Heart rate 70, BP 124/91 and saturating 98% on room air.
Review of Systems
General: Other (Negative unless mentioned above)
Objective Data
Data Reviewed
Vital Signs / I&O / Oxygen:
Vital Signs
Temp Pulse Resp BP Pulse Ox
98.4 F 71 13 127/61 98
07/23/24 04:21 07/23/24 08:00 07/23/24 08:00 07/23/24 08:00 07/23/24 08:10
Intake and Output
07/22/24 07/23/24 07/24/24
06:59 06:59 06:59
Intake Total 730 / 840 3557.5 / 3735.0 355.0 / 355.0
Output Total 500 / 500 1800 / 1800 0 / 0
Balance 230 / 340 1757.5 / 1935.0 355.0 / 355.0
SaO2 98
Physical Exam
General: Respiratory Distress (negative), Comfortable, Chills (negative) and Sweats (negative)
HEENT: Normocephalic and Anicteric
Cardiovascular: S1-S2 and Peripheral Edema (negative)
Respiratory: Wheeze (negative), Crackles (negative), Rhonchi (negative), Non-Labored Respirations and Other (Diminished breath sounds bilaterally)
GI: Soft, Non Distended, Non Tender and Normal Bowel Sounds
Neurology: AO x 3 and Tremors (negative)
Skin: Warm, Dry, Cyanosis (negative) and Jaundice (negative)
Labs/Micro/Reports
Lab Data
07/23/24 04:16
07/23/24 04:16
Laboratory Results
07/23/24
04:16
PT 14.5
INR 1.10
--- NOTE | 2024-07-23 09:20 | W.PN.HOSP.TC ---
Addendum entered and electronically signed by Kelli Burr MD 07/23/24 15:53:
I saw and evaluated the patient independently. I reviewed the resident�s note and agree with findings and plan as documented by Dr. Feliciano.
GENERAL: well developed, well nourished, female in no apparent distress--much improved from 07/22
HEENT: NC/AT no O2 requirements
HEART: regular rate and rhythm, +S1, +S2
LUNGS : clear to auscultation bilaterally
ABDOM: soft, minimal tenderness in midepigastric region, nondistended, + bowel sounds
EXT: no cyanosis, clubbing, or edema
NEUROLOGIC: grossly intact
acute anemia due to acute blood loss from Post ERCP upper GI bleed--HGB 07/13/24 was 12.6, now down to 7.6--s/p 4 units pRBC--CT scan suggesting mild gastroenterocolitis--clear liquids--PPI drip--serial H&H--apprec GI input--hold asa
Transaminitis could be transient from post ERCP, doubt developing post ERCP pancreatitis (lipase only 472 and no abdominal pain)--Hepatocellular pattern--CT abdomen pelvis suggesting mild gastroenterocolitis--Hold statin
Intrahepatic biliary ductal system abnormality/high-grade stricture of common hepatic duct--Underwent ERCP with biopsy 07/20/24--path pending
Essential hypertension--Continue amlodipine
Hypothyroidism--Continue levothyroxine
Newly diagnosed bladder cancer--Supposed to have cystoscopy next week
Hypothyroidism--Continue levothyroxine
Hyperlipidemia--Hold statin
Anxiety/depression--Continue sertraline
DVT proph--SCDs
Code status--Full code
Original Note:
Today's Communication/Plan
-
Repeat CBC. Monitor stool output. Diet advancement per GI.
Assessment / Plan
Assessment / Plan
74 yo F with PMH suspected biliary stricture s/p ERCP 07/20, bladder cancer, HTN who presented to ED for weakness. While in ED, she had large bloody BM and hematemesis. Labs on admission were notable for hgb 8.1, elevated LFTs (AST 96, ALT 96),
mildly elevated lipase (472). CT suggesting mild gastroenterocolitis.
Acute anemia due to acute blood loss from s/p ERCP upper GI bleed
�Prior to ERCP HGB 07/13/24 was 12.6, then 8.1 on admission. Esau to 6.8 this hospitalization.
�GI following, appreciate recs.
�EGD 07/22/24 showed hematin/blood in gastric body and duodenum; no source identified, no active bleeding/stigmata
�S/p 4 units pRBC.
�Hgb peaked at 9.6 yesterday afternoon, and has been slowly downtrending since--likely equilibrating versus dilutional. No ongoing acute bleeding.
�Plan to repeat CBC at 1400--if stable, consider downgrade from ICU.
�Continue PPI drip and advance diet per GI.
Transaminitis could be transient from post ERCP
�Hepatocellular pattern on admission, now wnl.
�CT suggesting mild gastroenterocolitis
� Mildly elevated lipase on admission --> wnl. Not consistent with pancreatitis.
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
Essential hypertension--hold home amlodipine given acute bleed. BPs normotensive. Reassess for restarting antihypertensives PRN.
Hypothyroidism--Continue levothyroxine when tolerating oral meds.
Newly diagnosed bladder cancer--Supposed to have cystoscopy next week.
Hyperlipidemia--Hold statin
Anxiety/depression--Continue home sertraline when tolerating oral meds.
Code status: Full
VTE ppx: SCDs
Diet: NPO/sips, defer diet to GI
Dispo planning: pending PT/OT eval
Anticipated Discharge: 24 - 48 hours
Subjective/Interval History
-
Date of Service: July 23, 2024
No acute events overnight. Further black/bloody bowel movements since yesterday afternoon. Feels well. Denies lightheadedness, dizziness, chest pain, shortness of breath, palpitations, abdominal pain, nausea, vomiting. Tolerating sips of water.
Objective Data
-
Labs:
Laboratory Results
07/23/24
04:16
WBC 9.5
Hgb 7.8 L
Hct 23.8 L
Plt Count 109 L D
PT 14.5
INR 1.10
Sodium 145
Potassium 3.4 L
Chloride 120 H
Carbon Dioxide 24
BUN 47 H
Creatinine 1.0
Glucose 110 H
Calcium 8.8
Total Bilirubin 0.4
AST 21
ALT 29
Alkaline Phosphatase 54
Vital Signs:
Vital Signs
Temp Pulse Resp BP Pulse Ox
98.4 F 65 13 124/91 98
07/23/24 04:21 07/23/24 09:00 07/23/24 09:00 07/23/24 09:00 07/23/24 08:10
I&O
07/22/24 07/23/24 07/24/24
06:59 06:59 06:59
Intake Total 730 / 840 3557.5 / 3735.0 532.5 / 532.5
Output Total 500 / 500 1800 / 1800 0 / 0
Balance 230 / 340 1757.5 / 1935.0 532.5 / 532.5
Review of Systems
-
History Source: Patient
All other systems: Reviewed and negative
Physical Exam
-
General: No Apparent Distress, Comfortable, Conversant and Other (appears ill--pale and washed out)
HEENT: Normocephalic, Atraumatic and Anicteric
Respiratory: Clear to Auscultation and Non Labored Respirations; Negative Wheezes or Rhonchi
Cardiac: Regular Rhythm and S1/S2
GI: Soft, Nondistended, Normal Bowel Sounds and Tender (mild TTP epigastric region)
Rectal: Deferred by Provider
Musculoskeletal: No Clubbing, No Cyanosis and No Edema
Skin: Warm and Dry
Neuro: Awake, Alert and Nonfocal/Grossly Intact
Psych: Calm
Data Reviewed
-
Diagnostic Radiology: Image personally visualized and interpreted and Report Reviewed by me
CT Scan: Report Reviewed by me
Medical Tests (Nuc Med, Echo etc): Report Reviewed by me
Labs: Labs Reviewed by me
Old Records: Reviewed
--- NOTE | 2024-07-23 09:56 | PTCARENOTE ---
Rec'd care of patient at 0700. Patient alert and oriented. MAEx4. NSR with first degree avb on tele. Trace ankle edema. Palpable pulses.. Lung sounds cta on RA. +BS. Per previous RN, no BMs overnight. IVF, PPI gtt and KCl infusing through peripheral
INTs. Patient assisted to BSC and then into chair at 0830. VSS.
--- NOTE | 2024-07-23 10:14 | PTCARENOTE ---
IVFs capped. Repeat H&H at 1400.
--- NOTE | 2024-07-23 10:44 | CM ---
Patient seen at bedside with daughter present. Patient for PT assessment. Patient daughter states that patient has alot of supports. CM will continue to follow for discharge planning needs.
Plan; home with VN vs SNF pending functional assessments.
--- NOTE | 2024-07-23 10:52 | W.PN.GI.CBS2 ---
Today's Communication / Plan
-
-Melena, likely post sphincterotomy bleeding
Upper endoscopy with regular and side-viewing endoscope without any stigmata of bleeding, push enteroscopy without any active bleeding or stigmata. Likely still postvitrectomy bleeding which resolved.
Monitor H&H, transfuse as needed.
Added IV iron
Continue Protonix IV drip for today, Protonix p.o. twice a day starting tomorrow..
Start clear liquid diet and advance as tolerated
-Suspicion for sclerosing cholangitis, follow-up with Dr. Machado as outpatient in 6 to 8 weeks.
-Recent diagnosis of bladder cancer, going to follow-up with her urologist as well.
We will give them a call as she does have appointment this coming Tuesday. She might have to postpone this given recent bleeding and anemia.
Will follow
Assessment / Plan
-
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
and presenting with coffee-ground emesis and melena, significant drop in hemoglobin suggesting active GI bleeding.
-Melena, likely post sphincterotomy bleeding
Upper endoscopy with regular and side-viewing endoscope without any stigmata of bleeding, push enteroscopy without any active bleeding or stigmata. Likely still postvitrectomy bleeding which resolved.
Monitor H&H, transfuse as needed.
Added IV iron
Continue Protonix IV drip for today, Protonix p.o. twice a day starting tomorrow..
Start clear liquid diet and advance as tolerated
-Suspicion for sclerosing cholangitis, follow-up with Dr. Machado as outpatient in 6 to 8 weeks.
-Recent diagnosis of bladder cancer, going to follow-up with her urologist as well.
We will give them a call as she does have appointment this coming Tuesday. She might have to postpone this given recent bleeding and anemia.
Will follow
Subjective
Subjective
Date of Service: July 23, 2024
Patient without any abdominal pain, nausea or vomiting. No further bowel movements today.
Objective
Data Reviewed
Laboratory Data:
Laboratory Results
07/23/24 04:16
Laboratory Results
PT 14.5 Sec (11.4-14.6) 07/23/24 04:16
INR 1.10 07/23/24 04:16
APTT 24.9 Sec (23.4-35.0) 07/22/24 07:10
Phosphorus 3.4 mg/dl (2.5-4.5) 07/22/24 07:10
Magnesium 2.2 mg/dl (1.6-2.3) 07/23/24 04:16
Total Bilirubin 0.4 mg/dl (0.2-1.3) 07/23/24 04:16
AST 21 U/L (14-36) 07/23/24 04:16
ALT 29 U/L (0-35) 07/23/24 04:16
Alkaline Phosphatase 54 U/L (38-126) 07/23/24 04:16
Amylase 68 U/L (30-110) 07/22/24 07:10
Lipase 242 U/L (23-300) 07/22/24 07:10
Vital Signs and I&O:
Vital Signs
Temp Pulse Resp BP Pulse Ox
97.8 F 72 13 125/58 100
07/23/24 09:44 07/23/24 10:00 07/23/24 10:00 07/23/24 10:00 07/23/24 10:00
I&O
07/22/24 07/23/24 07/24/24
06:59 06:59 06:59
Intake Total 730 / 840 3557.5 / 3735.0 542.5 / 542.5
Output Total 500 / 500 1800 / 1800 0 / 0
Balance 230 / 340 1757.5 / 1935.0 542.5 / 542.5
Physical Exam
Physical Exam
GI: Soft, Non Distended and Non Tender
--- NOTE | 2024-07-23 12:30 | PTCARENOTE ---
Patient remains in chair. VSS. NSR on tele. Tolerating clears. No BM. No other changes.
[2024-07-23] MEDS: FERRLECIT 110 MG IV (13:34)
[2024-07-23 13:54] LABS: Hematocrit 21.4 % (37.0-47.0); Hemoglobin 7.3 g/dL (12.0-16.0); Mean Corp Hgb Conc. 34.1 g/dL (33.0-37.0); Mean Corpuscular Hgb 30.3 pg (27.0-31.0); Mean Corpuscular Volume 88.8 fL (81.0-99.0); Mean Platelet Volume 10.3 fL (7.4-10.4); Platelet Count 121 10^3/uL (130-400); Red Blood Cell Count 2.41 10^6/uL (4.20-5.40); Red Cell Dist. Width 15.5 % (11.5-14.5); White Blood Cell Count 10.3 10^3/uL (4.8-10.8)
--- NOTE | 2024-07-23 17:09 | PTCARENOTE ---
Patient downgraded to tele. Repeat H&H- 7.3.4. No s/s bleeding. VSS.
--- NOTE | 2024-07-23 18:58 | PTCARENOTE ---
Pt received from ICU to [facility]. Pt oriented to room and call lopez.
[2024-07-23] MEDS: LIPITOR 10 MG PO (21:13)
[2024-07-23] MEDS: ZOLOFT 50 MG PO (21:14)
[2024-07-23 21:58] LABS: Hematocrit 22.8 % (37.0-47.0); Hemoglobin 7.9 g/dL (12.0-16.0); Mean Corp Hgb Conc. 34.6 g/dL (33.0-37.0); Mean Corpuscular Hgb 30.7 pg (27.0-31.0); Mean Corpuscular Volume 88.7 fL (81.0-99.0); Mean Platelet Volume 10.5 fL (7.4-10.4); Platelet Count 142 10^3/uL (130-400); Red Blood Cell Count 2.57 10^6/uL (4.20-5.40); Red Cell Dist. Width 15.7 % (11.5-14.5); White Blood Cell Count 10.8 10^3/uL (4.8-10.8)
--- NOTE | 2024-07-23 22:05 | VATNOTE ---
while attempting to obtain labs, this VAT RN noticed previous iv site left ac was extremely red and warm. Pt stated it was very sore. Area marked and ice applied. elevated on 2 folded blankets. Suggested to MD LE assess site in am.
[2024-07-24 03:25] VITALS: BP 131/62
[2024-07-24] MEDS: PROTONIX 100 IV (04:33)
[2024-07-24] MEDS: SYNTHROID 88 MCG PO (04:33)
[2024-07-24] MEDS: TYLENOL 650 MG PO (05:32)
[2024-07-24 07:26] VITALS: BP 139/59
[2024-07-24] MEDS: NORVASC 5 MG PO (07:35)
--- NOTE | 2024-07-24 10:42 | W.PN.HOSP.TC ---
Addendum entered and electronically signed by Kelli Burr MD 07/24/24 17:38:
I saw and evaluated the patient independently. I reviewed the resident�s note and agree with findings and plan as documented by Dr. Feliciano.
GENERAL: well developed, well nourished, female in no apparent distress
HEENT: NC/AT no O2 requirements
HEART: regular rate and rhythm, +S1, +S2
LUNGS : clear to auscultation bilaterally
ABDOM: soft, minimal tenderness in midepigastric region, nondistended, + bowel sounds
EXT: no cyanosis, clubbing, or edema--left arm sore to touch and swollen firm area
NEUROLOGIC: grossly intact
acute anemia due to acute blood loss from Post ERCP upper GI bleed--HGB 07/13/24 was 12.6--s/p 4 units pRBC, HGB 8.1--CT scan suggesting mild gastroenterocolitis--fulls--PPI BID--serial H&H--apprec GI input--hold asa
Transaminitis could be transient from post ERCP, doubt developing post ERCP pancreatitis (lipase only 472 and no abdominal pain)--Hepatocellular pattern--CT abdomen pelvis suggesting mild gastroenterocolitis--Hold statin
swollen/painful left arm--US c/w superficial thrombophlebitis--warm compresses
Intrahepatic biliary ductal system abnormality/high-grade stricture of common hepatic duct--Underwent ERCP with biopsy 07/20/24--path pending
Essential hypertension--Continue amlodipine
Hypothyroidism--Continue levothyroxine
Newly diagnosed bladder cancer--Supposed to have cystoscopy next week
Hypothyroidism--Continue levothyroxine
Hyperlipidemia--Hold statin
Anxiety/depression--Continue sertraline
DVT proph--SCDs
Code status--Full code
Original Note:
Today's Communication/Plan
-
Advance diet as tolerated. Oral medications from home restarted. If hemoglobin stable tomorrow, anticipate discharge home with home health.
Assessment / Plan
Assessment / Plan
74 yo F with PMH suspected biliary stricture s/p ERCP 07/20, bladder cancer, HTN who presented to ED for weakness. While in ED, she had large bloody BM and hematemesis. Labs on admission were notable for hgb 8.1, elevated LFTs (AST 96, ALT 96),
mildly elevated lipase (472). CT suggesting mild gastroenterocolitis.
Acute anemia due to acute blood loss from s/p ERCP upper GI bleed
�Prior to ERCP HGB 07/13/24 was 12.6, then 8.1 on admission. Esau to 6.8 this hospitalization.
�GI following, appreciate recs.
�EGD 07/22/24 showed hematin/blood in gastric body and duodenum; no source identified, no active bleeding/stigmata
�S/p 4 units pRBC. Followed by appropriate rise in hemoglobin�peak of 9.6 on 07/22.
�Hemoglobin has been stable last night. Patient refused blood draw this morning; after discussion, she is agreeable. Hemoglobin now 8.1 this afternoon. No ongoing acute bleeding.
�Will change PPI from IV to p.o. Advance diet to full liquids.
-Continue to observe overnight. If hemoglobin stable and tolerating diet advancement, anticipate hospital discharge tomorrow.
Transaminitis�resolved, suspect this was transient from post ERCP
�Hepatocellular pattern on admission, now wnl.
�CT suggesting mild gastroenterocolitis
� Mildly elevated lipase on admission --> wnl. Not consistent with pancreatitis.
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 She will follow-up with GI outpatient (Dr. Machado) in 6 to 8 weeks for possible
sclerosing cholangitis.
Superficial thrombophlebitis at prior IV site
-Peripheral venous ultrasound showed left cephalic vein at antecubital fossa and throughout entire forearm
-Fortunately, no evidence of DVT�will defer pharmaceutical anticoagulation given recent bleeding.
-Continue supportive management including warm compresses, elevation of hand.
Essential hypertension-- home amlodipine was held on admission due to acute bleed. BPs have been stable, restarted home amlodipine today.
Hypothyroidism--Continue home levothyroxine.
Newly diagnosed bladder cancer--Supposed to have cystoscopy next week. Follow-up with urology outpatient.
Hyperlipidemia--statin was held due to LFTs. Restarted atorvastatin last night, will continue.
Anxiety/depression--Continue home sertraline.
Code status: Full
VTE ppx: SCDs
Diet: Full liquid
Dispo planning: Anticipate discharge tomorrow, home with home health.
Anticipated Discharge: Within 24 hours
Subjective/Interval History
-
Date of Service: July 24, 2024
No acute events overnight. No black or bloody BMs since 07/22. Denies lightheadedness, dizziness, chest pain, shortness of breath, palpitations, abdominal pain, vomiting, nausea. Tolerating clear diet. This morning, she did refuse her blood draw
due to arm pain in both arms. She says the pain is worst at her left antecub.
Objective Data
-
Labs:
Laboratory Results
07/24/24
06:00
WBC Pending
Hgb Pending
Hct Pending
Plt Count Pending
Sodium Pending
Potassium Pending
Chloride Pending
Carbon Dioxide Pending
BUN Pending
Creatinine Pending
Glucose Pending
Calcium Pending
Vital Signs:
Vital Signs
Temp Pulse Resp BP Pulse Ox
98.1 F 71 20 139/79 94
07/24/24 07:26 07/24/24 07:26 07/24/24 07:26 07/24/24 07:35 07/24/24 08:00
I&O
07/23/24 07/24/24 07/25/24
06:59 06:59 06:59
Intake Total 3557.5 / 3735.0 1452.5 / 1452.5
Output Total 1800 / 1800 0 / 0
Balance 1757.5 / 1935.0 1452.5 / 145.5
Review of Systems
-
History Source: Patient
All other systems: Reviewed and negative
Physical Exam
-
General: No Apparent Distress, Comfortable and Conversant
HEENT: Normocephalic, Atraumatic and Anicteric
Respiratory: Clear to Auscultation and Non Labored Respirations; Negative Wheezes or Rhonchi
Cardiac: Regular Rhythm and S1/S2
GI: Soft, Nondistended, Normal Bowel Sounds and Tender (mild TTP epigastric region)
Rectal: Deferred by Provider
Musculoskeletal: No Clubbing, No Cyanosis, No Edema, Edema, Left Upper Extrem and Other (Left antecub mildly swollen, very tender to palpation. No erythema, fluctuance, palpable cord, drainage. Active and passive range of motion and strength
intact bilaterally. Left hand mild nonpitting edema, none on the right.)
Skin: Warm and Dry
Neuro: Awake, Alert and Nonfocal/Grossly Intact
Psych: Calm
Data Reviewed
-
Diagnostic Radiology: Image personally visualized and interpreted and Report Reviewed by me
CT Scan: Report Reviewed by me
Medical Tests (Nuc Med, Echo etc): Report Reviewed by me
Labs: Labs Reviewed by me
Old Records: Reviewed
[2024-07-24] MEDS: PROTONIX IV (11:18)
[2024-07-24 12:01] LABS: Blood Urea Nitrogen 25 mg/dl (7-17); Calcium 9.5 mg/dl (8.4-10.2); Carbon Dioxide 23 mmol/L (22-30); Chloride 112 mmol/L (98-107); Estimated Creatinine Clearance 44 ml/min; Glucose 93 mg/dl (70-99); Magnesium 2.1 mg/dl (1.6-2.3); Phosphorus 2.3 mg/dl (2.5-4.5); Potassium 3.6 mmol/L (3.5-5.1); Sodium 140 mmol/L (135-145); eGFR > 60.00
[2024-07-24 12:34] VITALS: BP 151/67
[2024-07-24 13:28] LABS: Hematocrit 23.3 % (37.0-47.0); Hemoglobin 8.1 g/dL (12.0-16.0); Mean Corp Hgb Conc. 34.8 g/dL (33.0-37.0); Mean Corpuscular Hgb 30.3 pg (27.0-31.0); Mean Corpuscular Volume 87.3 fL (81.0-99.0); Platelet Count 142 10^3/uL (130-400); Red Blood Cell Count 2.67 10^6/uL (4.20-5.40); Red Cell Dist. Width 14.8 % (11.5-14.5); White Blood Cell Count 12.6 10^3/uL (4.8-10.8)
--- NOTE | 2024-07-24 14:21 | W.PN.GI.CBS2 ---
Addendum entered and electronically signed by Danielle Cai MD 07/24/24 17:16:
I saw and examined the patient.
The STATE PATROL OFFICER or PA's note was reviewed and I agree with the note.
Comment: 74 yo F here with melena thought likely 2/2 post sphincterotomy bleed.
No further bleeding.
Dizziness this afternoon.
Trend Hb.
If Hb stable, OK for discharge from [facility] in the AM.
Outpatient follow up with Dr. Machado.
Original Note:
Today's Communication / Plan
-
-Melena, likely post sphincterotomy bleeding
Upper endoscopy with regular and side-viewing endoscope without any stigmata of bleeding, push enteroscopy without any active bleeding or stigmata. Likely still postvitrectomy bleeding which resolved.
Monitor H&H, transfuse as needed stable to 8.1 today
cont IV iron
transitioned to PPI BID
advance to full liquid lunch if stable advance later today vs in am
some dizzies with getting up today continue to monitor for recurrent or signs of bleeding
-Suspicion for sclerosing cholangitis, follow-up with Dr. Machado as outpatient in 6 to 8 weeks-- I sent message to office to call to schedule follow up
-Recent diagnosis of bladder cancer, going to follow-up with her urologist as well- per family urology updated on current status await plan for possible rescheduled upcoming procedure
Will follow
family updated
Assessment / Plan
-
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
and presenting with coffee-ground emesis and melena, significant drop in hemoglobin suggesting active GI bleeding.
-Melena, likely post sphincterotomy bleeding
Upper endoscopy with regular and side-viewing endoscope without any stigmata of bleeding, push enteroscopy without any active bleeding or stigmata. Likely still postvitrectomy bleeding which resolved.
Monitor H&H, transfuse as needed stable to 8.1 today
cont IV iron
transitioned to PPI BID
advance to full liquid lunch if stable advance later today vs in am
some dizzies with getting up today continue to monitor for recurrent or signs of bleeding
-Suspicion for sclerosing cholangitis, follow-up with Dr. Machado as outpatient in 6 to 8 weeks-- I sent message to office to call to schedule follow up
-Recent diagnosis of bladder cancer, going to follow-up with her urologist as well- per family urology updated on current status await plan for possible rescheduled upcoming procedure
Will follow
family updated
Subjective
Subjective
Date of Service: July 24, 2024
07/22 black tarry stool, full liquid lunch
Objective
Data Reviewed
Laboratory Data:
Laboratory Results
07/24/24 12:48
07/24/24 11:10
Laboratory Results
PT 14.5 Sec (11.4-14.6) 07/23/24 04:16
INR 1.10 07/23/24 04:16
APTT 24.9 Sec (23.4-35.0) 07/22/24 07:10
Phosphorus 2.3 mg/dl (2.5-4.5) L 07/24/24 11:10
Magnesium 2.1 mg/dl (1.6-2.3) 07/24/24 11:10
Total Bilirubin 0.4 mg/dl (0.2-1.3) 07/23/24 04:16
AST 21 U/L (14-36) 07/23/24 04:16
ALT 29 U/L (0-35) 07/23/24 04:16
Alkaline Phosphatase 54 U/L (38-126) 07/23/24 04:16
Amylase 68 U/L (30-110) 07/22/24 07:10
Lipase 242 U/L (23-300) 07/22/24 07:10
Vital Signs and I&O:
Vital Signs
Temp Pulse Resp BP Pulse Ox
99.2 F 74 20 151/67 99
07/24/24 12:34 07/24/24 12:34 07/24/24 12:34 07/24/24 12:34 07/24/24 12:34
I&O
07/23/24 07/24/24 07/25/24
06:59 06:59 06:59
Intake Total 3557.5 / 3735.0 1452.5 / 1452.5
Output Total 1800 / 1800 0 / 0 1000 / 1000
Balance 1757.5 / 1935.0 1452.5 / 1452.5 -1000 / -1000
Physical Exam
Physical Exam
HEENT: Anicteric and Moist mucous membranes
Cardiology: Normal Sinus Rhythm
Pulmonary: Clear
GI: Soft, Non Distended and Non Tender
Extremities: No Edema
Neuro: Non Focal
--- NOTE | 2024-07-24 14:31 | VNURNOTE ---
Home health liaison met with patient to discuss [facility] services, visit scheduling/frequency, homebound status and pet policy. Patient understands home visits will be 1-2 times a week to assess and teach medical management. Patient aware a visiting
nurse will contact her for start of care within 1-2 days after discharge from . [facility] Referral completed in care port.
[2024-07-24] MEDS: FERRLECIT 110 MG IV (14:39)
[2024-07-24 14:58] VITALS: BP 145/61
--- NOTE | 2024-07-24 15:17 | CM ---
Patient seen at bedside with physicians, on . Patient family present. Patient for discharge home with [facility] to follow. Patient completed IMM and signed form placed on chart. Patient family to assist with transportation. Patient states she has
a walker at home. CM will continue to follow for discharge planning needs.
Plan;home with [facility] to follow
--- NOTE | 2024-07-24 16:48 | VATNOTE ---
Vat rounds: Left arm continues with pain and swelling. Left arm elevated on pillows. Warm compress applied for patient's comfort. Will monitor closely.
[2024-07-24 18:15] LABS: Hemoglobin 7.8 g/dL (12.0-16.0)
[2024-07-24 19:38] VITALS: BP 137/56
[2024-07-24] MEDS: PROTONIX 40 MG PO (20:54)
[2024-07-24] MEDS: ZOLOFT 50 MG PO (20:55)
[2024-07-24] MEDS: LIPITOR 10 MG PO (20:55)
[2024-07-24 23:56] VITALS: BP 150/68
[2024-07-25] VITALS (12 sets, daily range): BP systolic 128–160; BP diastolic 62–78
[2024-07-25] MEDS: TYLENOL 650 MG PO (00:48)
[2024-07-25] MEDS: SYNTHROID 88 MCG PO (06:15)
[2024-07-25] MEDS: PROTONIX 40 MG PO ×2 (07:40→19:42)
[2024-07-25] MEDS: NORVASC 5 MG PO (07:40)
[2024-07-25 08:37] LABS: Hemoglobin 7.2 g/dL (12.0-16.0); Mean Corp Hgb Conc. 34.3 g/dL (33.0-37.0); Mean Corpuscular Hgb 30.8 pg (27.0-31.0); Mean Corpuscular Volume 89.7 fL (81.0-99.0); Mean Platelet Volume 10.6 fL (7.4-10.4); Platelet Count 167 10^3/uL (130-400); Red Blood Cell Count 2.34 10^6/uL (4.20-5.40); Red Cell Dist. Width 14.5 % (11.5-14.5); White Blood Cell Count 9.8 10^3/uL (4.8-10.8)
[2024-07-25 09:15] LABS: ALT (SGPT) 21 U/L (0-35); AST (SGOT) 22 U/L (14-36); Albumin 2.6 g/dl (3.5-5.0); Alkaline Phosphatase 73 U/L (38-126); Blood Urea Nitrogen 15 mg/dl (7-17); Calcium 9.2 mg/dl (8.4-10.2); Carbon Dioxide 26 mmol/L (22-30); Estimated Creatinine Clearance 44 ml/min; Glucose 101 mg/dl (70-99); Magnesium 2.1 mg/dl (1.6-2.3); Potassium 3.3 mmol/L (3.5-5.1); Sodium 138 mmol/L (135-145); Total Bilirubin 0.4 mg/dl (0.2-1.3); Total Protein 4.5 g/dl (6.3-8.2); eGFR > 60.00
[2024-07-25 09:21] LABS: Chloride 108 mmol/L (98-107)
--- NOTE | 2024-07-25 10:29 | W.PN.HOSP.TC ---
Addendum entered and electronically signed by Kelli Burr MD 07/25/24 18:01:
I saw and evaluated the patient independently. I reviewed the resident�s note and agree with findings and plan as documented by Dr. Feliciano.
GENERAL: well developed, well nourished, female in no apparent distress
HEENT: NC/AT no O2 requirements
HEART: regular rate and rhythm, +S1, +S2
LUNGS : clear to auscultation bilaterally
ABDOM: soft, minimal tenderness in midepigastric region, nondistended, + bowel sounds
EXT: no cyanosis, clubbing, or edema--left arm sore to touch and swollen firm area
NEUROLOGIC: grossly intact
acute anemia due to acute blood loss from Post ERCP upper GI bleed--HGB 07/13/24 was 12.6--s/p 4 units pRBC, HGB 8.1--CT scan suggesting mild gastroenterocolitis--fulls--PPI BID--serial H&H--apprec GI input--hold asa--overnight had passage of
melanotic stool with clots--this AM drop in HGB to 7.2--would transfuse 1 unit--explained reasoning of GI wanting to repeat EGD in detail (about 30 minutes) with pt, , and daughter--for repeat EGD later today
fever--101.3--could be gut translocation of bacteria, superficial thrombophlebitis, bladder ca--blood culture x 2, UA with reflex to culture, CXR and start zosyn empirically (if cultures neg, can stop abx)
Transaminitis could be transient from post ERCP, doubt developing post ERCP pancreatitis (lipase only 472 and no abdominal pain)--Hepatocellular pattern--CT abdomen pelvis suggesting mild gastroenterocolitis--Hold statin
swollen/painful left arm--US c/w superficial thrombophlebitis--warm compresses
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
Essential hypertension--Continue amlodipine
Hypothyroidism--Continue levothyroxine
Newly diagnosed bladder cancer--Supposed to have cystoscopy next week
Hypothyroidism--Continue levothyroxine
Hyperlipidemia--Hold statin
Anxiety/depression--Continue sertraline
DVT proph--SCDs
Code status--Full code
Original Note:
Today's Communication/Plan
-
NPO, will be for EGD today with GI. Monitor for further GI bleeding.
Assessment / Plan
Assessment / Plan
74 yo F with PMH suspected biliary stricture s/p ERCP 07/20, bladder cancer, HTN who presented to ED for weakness. While in ED, she had large bloody BM and hematemesis. Labs on admission were notable for hgb 8.1, elevated LFTs (AST 96, ALT 96),
mildly elevated lipase (472). CT suggesting mild gastroenterocolitis.
Acute anemia due to acute blood loss from s/p ERCP upper GI bleed
�Prior to ERCP HGB 07/13/24 was 12.6, then 8.1 on admission. Esau to 6.8 this hospitalization.
�GI following, appreciate recs.
�EGD 07/22/24 showed hematin/blood in gastric body and duodenum; no source identified, no active bleeding/stigmata
�S/p 4 units pRBC. Followed by appropriate rise in hemoglobin�peak of 9.6 on 07/22.
� Most recently, hemoglobin decreased from 8.1 to 7.2 this morning. Given her melena overnight and decrease in hemoglobin, concern for ?ongoing/?new GI bleed. Fortunately vital signs remained stable, no hypotension or tachycardia. She also denies
symptoms of acute anemia this morning. Will crossmatch for 2 additional units, and plan to transfuse 1 today. Continue to monitor H&H
�Will keep n.p.o. pending GI evaluation. Discussed with team, plan is for repeating EGD today.
� Continue PPI per GI.
Transaminitis�resolved, suspect this was transient from post ERCP
�Hepatocellular pattern on admission, now wnl.
�CT suggesting mild gastroenterocolitis
� Mildly elevated lipase on admission --> wnl. Not consistent with pancreatitis.
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 She will follow-up with GI outpatient (Dr. Machado) in 6 to 8 weeks for possible
sclerosing cholangitis.
Superficial thrombophlebitis at prior IV site
-Peripheral venous ultrasound showed left cephalic vein at antecubital fossa and throughout entire forearm
-Fortunately, no evidence of DVT�will defer pharmaceutical anticoagulation given recent bleeding.
-Continue supportive management including warm compresses, elevation of hand.
-Instructed patient to remove ring, not currently problematic but may be issue if swelling progresses.
Essential hypertension-- home amlodipine was held on admission due to acute bleed. Then restarted on 07/24-- will continue.
Hypothyroidism--Continue home levothyroxine.
Newly diagnosed bladder cancer--Supposed to have cystoscopy next week. Follow-up with urology outpatient.
Hyperlipidemia--statin was held due to LFTs. Restarted atorvastatin 07/23-- will continue.
Anxiety/depression--Continue home sertraline.
Code status: Full
VTE ppx: SCDs
Diet: NPO
Dispo planning: pending clinical course
Anticipated Discharge: 24 - 48 hours
Subjective/Interval History
-
Date of Service: July 25, 2024
Overnight she had 2 black bowel movements, and another BM that was burgundy with clots. This morning she feels well. Only complaint is pain/swelling in the left arm. Otherwise review of systems negative-- denies lightheadedness, dizziness, chest
pain/pressure, palpitation, shortness of breath, abdominal pain, nausea, vomiting. She had been tolerating full liquid diet, though I discussed with her n.p.o. status starting now given her bloody bowel movements until GI evaluation. She ordered
breakfast, but has not eaten this morning.
Objective Data
-
Labs:
Laboratory Results
07/25/24
07:39
WBC 9.8
Hgb 7.2 L
Hct 21.0 L
Plt Count 167
Sodium 138
Potassium 3.3 L
Chloride 108 H
Carbon Dioxide 26
BUN 15
Creatinine 0.9
Glucose 101 H
Calcium 9.2
Total Bilirubin 0.4
AST 22
ALT 21
Alkaline Phosphatase 73
Vital Signs:
Vital Signs
Temp Pulse Resp BP Pulse Ox
98.5 F 77 20 128/62 98
07/25/24 07:42 07/25/24 07:42 07/25/24 07:42 07/25/24 07:42 07/25/24 08:00
I&O
07/24/24 07/25/24 07/26/24
06:59 06:59 06:59
Intake Total 1452.5 / 1452.5 1320 / 1320
Output Total 0 / 0 1200 / 1200
Balance 1452.5 / 1452.5 120 / 120
Review of Systems
-
History Source: Patient
All other systems: Reviewed and negative
Physical Exam
-
General: No Apparent Distress, Comfortable and Conversant; Negative Pain, Fever, Chills or Sweats
HEENT: Normocephalic, Atraumatic and Anicteric
Respiratory: Clear to Auscultation and Non Labored Respirations; Negative Wheezes or Rhonchi
Cardiac: Regular Rhythm and S1/S2
GI: Soft, Nondistended, Normal Bowel Sounds and Tender (mild TTP epigastric region)
Rectal: Deferred by Provider
Musculoskeletal: No Clubbing, No Cyanosis, No Edema, Edema, Left Upper Extrem and Other (Left antecub very tender to palpation. No erythema, fluctuance, palpable cord, drainage. Active and passive range of motion and strength intact bilaterally.
Left hand with nonpitting edema slightly progressed from yesterday, none on the right.)
Skin: Warm and Dry
Neuro: Awake, Alert, Oriented and Nonfocal/Grossly Intact
Psych: Calm
Data Reviewed
-
Diagnostic Radiology: Image personally visualized and interpreted and Report Reviewed by me
CT Scan: Report Reviewed by me
Medical Tests (Nuc Med, Echo etc): Report Reviewed by me
Labs: Labs Reviewed by me, Discussed with Physician, Discussed with Nurse and Discussed with Patient
Old Records: Reviewed
--- NOTE | 2024-07-25 12:08 | VATNOTE ---
VAT rounds: monitored L arm pain and swelling. Per peripheral vascular ultrasound completed 07/24, pt has a clot in her L arm, pink extremity restriction bracelet in place. Redness, warmth, pain, and generalized dependent edema noted to left arm. Pt
states 'they want me to take my ring off but it won't come off.' Lubricating jelly applied to ring and removed with minimal difficulty. Ring given to pt's family member to take home with pt's consent. Arm elevated to the level of the heart on two
pillows and arm wrapped in warm blankets. Pt reported that warmth brought pain relief. Encouraged pt to ask staff for warm compresses when needed for comfort.
--- NOTE | 2024-07-25 12:16 | W.PN.GI.CBS2 ---
Today's Communication / Plan
-
egd with side viewing scope today
Assessment / Plan
-
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
and presenting with coffee-ground emesis and melena, significant drop in hemoglobin suggesting active GI bleeding.
-Melena, likely post sphincterotomy bleeding
Upper endoscopy with regular and side-viewing endoscope without any stigmata of bleeding, push enteroscopy without any active bleeding or stigmata.
Dropping hb with overt bleeding again today.
Plan for EGD with side viewing scope with Dr. Chauhan.
-Suspicion for sclerosing cholangitis, follow-up with Dr. Machado as outpatient in 6 to 8 weeks-- I sent message to office to call to schedule follow up - path normal reviewed with pt
-Recent diagnosis of bladder cancer, going to follow-up with her urologist as well- per family urology updated on current status await plan for possible rescheduled upcoming procedure
D/w hospitalist team and Dr. Chauhan
Subjective
Subjective
Date of Service: July 25, 2024
melena, burgundy stools with clots overnight
Objective
Data Reviewed
Laboratory Data:
Laboratory Results
07/25/24 07:39
07/25/24 07:39
Laboratory Results
PT 14.5 Sec (11.4-14.6) 07/23/24 04:16
INR 1.10 07/23/24 04:16
APTT 24.9 Sec (23.4-35.0) 07/22/24 07:10
Phosphorus 2.3 mg/dl (2.5-4.5) L 07/24/24 11:10
Magnesium 2.1 mg/dl (1.6-2.3) 07/25/24 07:39
Total Bilirubin 0.4 mg/dl (0.2-1.3) 07/25/24 07:39
AST 22 U/L (14-36) 07/25/24 07:39
ALT 21 U/L (0-35) 07/25/24 07:39
Alkaline Phosphatase 73 U/L (38-126) 07/25/24 07:39
Amylase 68 U/L (30-110) 07/22/24 07:10
Lipase 242 U/L (23-300) 07/22/24 07:10
Vital Signs and I&O:
Vital Signs
Temp Pulse Resp BP Pulse Ox
99.4 F 71 18 157/76 99
07/25/24 10:54 07/25/24 10:54 07/25/24 10:54 07/25/24 10:54 07/25/24 10:54
I&O
07/24/24 07/25/24 07/26/24
06:59 06:59 06:59
Intake Total 1452.5 / 1452.5 1320 / 1320
Output Total 0 / 0 1200 / 1200
Balance 1452.5 / 1452.5 120 / 120
Physical Exam
Physical Exam
GI: Non Distended and Non Tender
--- NOTE | 2024-07-25 14:10 | CM ---
Patient seen at bedside with and daughter present. Patient for further testing and plan is for discharge home following testing tomorrow if medically appropriate. Patient is to be followed at home with [facility]. CM will continue to follow for
discharge planning needs.
Plan; home with [facility] pending functional status at discharge.
[2024-07-25] MEDS: FERRLECIT 110 MG IV (14:53)
--- NOTE | 2024-07-25 16:21 | W.PN.UPDATE ---
Addendum entered and electronically signed by Kelli Burr MD 07/25/24 18:03:
Aware of events noted below. Spoke with Dr. Feliciano and the team in regards to next steps as listed below
Original Note:
Update Note
Progress Note Update
Return to bedside to reevaluate patient. Informed by nursing of temperature of 101.3, prior to this she had been afebrile. Otherwise vital signs stable as prescribed��BP 158/76, HR 81. No change in symptoms or clinical status. On physical exam,
she is laying comfortably in bed in no acute distress. Her abdominal exam and left arm are unchanged from this morning. She offers no new complaints, and denies further bloody BM. Given new fever along with ?active GI bleed, concern for possible
bacteremia due to translocation of gut laurie. Will obtain 2 blood cultures from different sites, urinalysis reflex to culture, and chest x-ray to evaluate for potential source of infection. Will also begin IV Zosyn after cultures drawn, follow
temperature curve and WBC, reassess antibiotics as additional information is returned. Discussed with Dr. Burr, nursing, phlebotomy, updates provided to GI team. Crossmatch for PRBC pending, plan remains to transfuse 1 PRBC when available.
While evaluating patient, she and her family had many questions about the EGD for today��I answered their questions to the best of my ability, and requested GI return to bedside for further counseling.
[2024-07-25] MEDS: ZOSYN 50 IV ×2 (16:48→22:19)
[2024-07-25 17:02] LABS: Urine Albumin Negative (Neg - Trace); Urine Bilirubin Negative (Negative); Urine Character Clear (Clear); Urine Color Yellow; Urine Glucose Negative (Negative); Urine Ketone 2+ (Negative); Urine Leukocyte Negative (Negative); Urine Nitrite Negative (Negative); Urine Occult Blood 1+ (Negative); Urine Urobilinogen Negative (Neg - 1+)
[2024-07-25 17:38] LABS: Urine Bacteria Few (Negative); Urine Red Blood Cell 0-2 /HPF (0-2); Urine Squamous Cell 0-2 /LPF (Few); Urine White Cell 0-2 /HPF (0-5)
--- NOTE | 2024-07-25 18:45 | PTCARENOTE ---
Pt received back from GI lab to [facility] at this time.
[2024-07-25] MEDS: TYLENOL ORAL SOLUTION 650 MG PO (19:41)
--- NOTE | 2024-07-25 20:31 | PTCARENOTE ---
Pramod SAWYER made aware of pre-transfusion temp 100.4 - tylenol ordered and pt medicated. 15 min T up to 101.4, pramod SAWYER made aware. Per CAREERS ADVISER OK to continue blood transfusion.
[2024-07-25] MEDS: LIPITOR 10 MG PO (22:18)
[2024-07-25] MEDS: ZOLOFT 50 MG PO (22:18)
[2024-07-26] VITALS: BP 151/74
[2024-07-26 03:14] VITALS: BP 159/75
[2024-07-26] MEDS: SYNTHROID 88 MCG PO (03:56)
[2024-07-26] MEDS: ZOSYN 50 IV ×4 (03:56→21:38)
[2024-07-26 07:00] VITALS: BP 137/72
[2024-07-26] MEDS: PROTONIX 40 MG PO ×2 (08:11→20:25)
[2024-07-26] MEDS: NORVASC 5 MG PO (08:12)
[2024-07-26 08:48] LABS: Blood Urea Nitrogen 11 mg/dl (7-17); Calcium 9.2 mg/dl (8.4-10.2); Carbon Dioxide 26 mmol/L (22-30); Chloride 106 mmol/L (98-107); Estimated Creatinine Clearance 40 ml/min; Glucose 99 mg/dl (70-99); Magnesium 2.1 mg/dl (1.6-2.3); Sodium 139 mmol/L (135-145); eGFR 58.39
--- NOTE | 2024-07-26 09:01 | VATNOTE ---
Vat rounds: Left arm continues to be elevated. Swelling of the hand decreased. Left ac site continues to be painful with touch. Warm compress applied for patient's comfort. Will monitor closely.
[2024-07-26 09:55] VITALS: BP 163/81; PULSE 81; O2SAT 100
[2024-07-26 10:00] LABS: Hematocrit 27.2 % (37.0-47.0); Hemoglobin 9.5 g/dL (12.0-16.0); Mean Corp Hgb Conc. 34.9 g/dL (33.0-37.0); Mean Corpuscular Hgb 31.5 pg (27.0-31.0); Mean Corpuscular Volume 90.1 fL (81.0-99.0); Mean Platelet Volume 10.4 fL (7.4-10.4); Platelet Count 207 10^3/uL (130-400); Red Blood Cell Count 3.02 10^6/uL (4.20-5.40); Red Cell Dist. Width 14.4 % (11.5-14.5); White Blood Cell Count 12.9 10^3/uL (4.8-10.8)
--- NOTE | 2024-07-26 11:56 | W.PN.HOSP.TC ---
Addendum entered and electronically signed by Kelli Burr MD 07/26/24 14:12:
I saw and evaluated the patient independently. I reviewed the resident�s note and agree with findings and plan as documented by Dr. Feliciano.
GENERAL: well developed, well nourished, female in no apparent distress
HEENT: NC/AT no O2 requirements
HEART: regular rate and rhythm, +S1, +S2
LUNGS : clear to auscultation bilaterally
ABDOM: soft, minimal tenderness in midepigastric region, nondistended, + bowel sounds
EXT: no cyanosis, clubbing, or edema--left arm sore to touch and swollen firm area
NEUROLOGIC: grossly intact
acute anemia due to acute blood loss from Post ERCP upper GI bleed--HGB 07/13/24 was 12.6--s/p 5 units pRBC, HGB 8.1--CT scan suggesting mild gastroenterocolitis--fulls--PPI BID--serial H&H--apprec GI input--hold asa--overnight 07/25 early AM had
passage of melanotic stool with clots--explained reasoning of GI wanting to repeat EGD in detail (about 30 minutes) with pt, , and daughter-- repeat EGD 07/25 without acute bleeding
fever--101.3--could be gut translocation of bacteria, superficial thrombophlebitis, bladder ca--blood culture x 2, UA with reflex to culture, CXR with atelectasis vs pna (doubt as no resp symptoms) and start zosyn empirically (if cultures neg, can
stop abx)--await ID input
Transaminitis could be transient from post ERCP, doubt developing post ERCP pancreatitis (lipase only 472 and no abdominal pain)--Hepatocellular pattern--CT abdomen pelvis suggesting mild gastroenterocolitis--Hold statin
swollen/painful left arm--US c/w superficial thrombophlebitis--warm compresses
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
Essential hypertension--Continue amlodipine
Hypothyroidism--Continue levothyroxine
Newly diagnosed bladder cancer--Supposed to have cystoscopy next week
Hypothyroidism--Continue levothyroxine
Hyperlipidemia--Hold statin
Anxiety/depression--Continue sertraline
DVT proph--SCDs
Code status--Full code
hopeful d/c 07/27
Original Note:
Today's Communication/Plan
-
ID consult for fever of unknown origin. Diet advancement per GI.
Assessment / Plan
Assessment / Plan
74 yo F with PMH suspected biliary stricture s/p ERCP 07/20, bladder cancer, HTN who presented to ED for weakness. While in ED, she had large bloody BM and hematemesis. Labs on admission were notable for hgb 8.1, elevated LFTs (AST 96, ALT 96),
mildly elevated lipase (472). CT suggesting mild gastroenterocolitis.
Acute anemia due to acute blood loss from s/p ERCP upper GI bleed
�Prior to ERCP HGB 07/13/24 was 12.6, then 8.1 on admission. Esau to 6.8 this hospitalization.
�S/p 4 units pRBC. Followed by appropriate rise in hemoglobin�peak of 9.6 on 07/22. S/p 1 additional unit pRBC 07/25. (total of 5 units this admission) She has been crossmatched for 1 additional unit as precaution.
�GI following, appreciate recs.
�EGD 07/22/24 showed hematin/blood in gastric body and duodenum; no source identified, no active bleeding/stigmata---repeat EGD 07/25 also did not identify source of bleeding.
� Most recently, hemoglobin improved to 9.5 this morning. No signs of bleeding in past 24 hours. Continue to monitor H&H.
- Continue PPI. Diet advancement per GI.
Fever of unknown origin, started 07/25-- blood cultures drawn, UA appears noninfectious. Chest xray showed possible pneumonia vs atelectasis; patient denies respiratory symptoms. IS.--- Given the concern of active upper GI bleed, IV zosyn started
07/25. Remained febrile overnight-- Consult ID, appreciate recs.
Transaminitis�resolved, suspect this was transient from post ERCP�Hepatocellular pattern on admission� Mildly elevated lipase on admission --> wnl. CT suggesting mild gastroenterocolitis. Not consistent with pancreatitis.
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 She will follow-up with GI outpatient (Dr. Machado) in 6 to 8 weeks for possible
sclerosing cholangitis.
Superficial thrombophlebitis at prior IV site-- Peripheral venous ultrasound showed left cephalic vein at antecubital fossa and throughout entire forearm-- Fortunately, no evidence of DVT�will defer pharmaceutical anticoagulation given recent
bleeding-- Continue supportive management including warm compresses, elevation of hand. Ring removed, rec avoid jewelry use until fully resolved.
Essential hypertension-- home amlodipine was held on admission due to acute bleed. Then restarted on 07/24-- will continue.
Hypothyroidism--Continue home levothyroxine.
Newly diagnosed bladder cancer--Supposed to have cystoscopy next week. Follow-up with urology outpatient.
Hyperlipidemia--statin was held due to LFTs. Restarted atorvastatin 07/23-- will continue.
Anxiety/depression--Continue home sertraline. Mood is very down while in the hospital, will continue to reassess regularly. Not actively suicidal. Can consider psychiatry consult for medication recommendations if patient agreeable. Otherwise
will follow up with pcp.
Code status: Full
VTE ppx: SCDs
Diet: full liquids per GI
Dispo planning: anticipate home health; plan tbd pending clinical course and PT eval closer to discharge
Anticipated Discharge: 24 - 48 hours
Subjective/Interval History
-
Date of Service: July 26, 2024
Overnight, remained febrile. Some cramps overnight, but no bloody BM since 07/25 AM. Reports improvement in hand swelling. Otherwise review of systems negative-- denies fevers, chills, dizziness, chest pain, congestion, cough, shortness of breath,
abdominal pain, nausea, vomiting, diarrhea, constipation. Tolerating oral hydration.
This morning, she says her energy level is improved, she is content reading. She also discloses that ' if it were not for my , I would want to check out.' When asked if she meant check out of this hospital versus this world, she said this
world. She notes occasional passive thoughts like this, no active suicidal ideation. She says she does not have desire to hurt/kill self. She does not have a plan to end her life. Support provided. Patient appears embarrassed of these thoughts,
and request it not be brought up in future. Discussed her baseline depression and treatment with sertraline 50 mg. She says she thinks that this is enough usually, but she feels worse recently due to these new medical problems. She declines
change in regimen now.
Objective Data
-
Labs:
Laboratory Results
07/26/24
06:39
WBC 12.9 H
Hgb 9.5 L D
Hct 27.2 L
Plt Count 207 D
Sodium 139
Potassium 3.0 L
Chloride 106
Carbon Dioxide 26
BUN 11
Creatinine 1.0
Glucose 99
Calcium 9.2
Vital Signs:
Vital Signs
Temp Pulse Resp BP Pulse Ox
99.8 F 80 16 137/72 99
07/26/24 07:00 07/26/24 07:00 07/26/24 07:00 07/26/24 07:00 07/26/24 08:10
I&O
07/25/24 07/26/24 07/27/24
06:59 06:59 06:59
Intake Total 1320 / 1320 495 / 495
Output Total 1200 / 1200
Balance 120 / 120 495 / 495
Review of Systems
-
History Source: Patient
All other systems: Reviewed and negative
Physical Exam
-
General: No Apparent Distress, Comfortable and Conversant; Negative Pain, Fever, Chills or Sweats
HEENT: Normocephalic, Atraumatic and Anicteric
Respiratory: Clear to Auscultation and Non Labored Respirations; Negative Wheezes or Rhonchi
Cardiac: Regular Rhythm and S1/S2
GI: Soft, Nondistended, Normal Bowel Sounds and Tender (mild TTP epigastric region)
Rectal: Deferred by Provider
Musculoskeletal: No Clubbing, No Cyanosis, No Edema (No edema of lower extremities, right upper extremity), Edema, Left Upper Extrem and Other (Left antecub tender to palpation. No erythema, fluctuance, palpable cord, drainage. Active and passive
range of motion and strength intact bilaterally. Left hand with nonpitting edema slightly improved from yesterday, none on the right.)
Skin: Warm and Dry
Neuro: Awake, Alert, Oriented and Nonfocal/Grossly Intact
Psych: Anxious
Data Reviewed
-
Diagnostic Radiology: Image personally visualized and interpreted and Report Reviewed by me
CT Scan: Report Reviewed by me
Medical Tests (Nuc Med, Echo etc): Report Reviewed by me
Labs: Labs Reviewed by me, Discussed with Physician, Discussed with Nurse and Discussed with Patient
Old Records: Reviewed
--- NOTE | 2024-07-26 13:11 | W.PN.GI.CBS2 ---
Today's Communication / Plan
-
trend hb, monitor for bleeding if no further bleeding plan dc tmwr
Assessment / Plan
-
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
and presenting with coffee-ground emesis and melena, significant drop in hemoglobin suggesting active GI bleeding.
-Melena, likely post sphincterotomy bleeding
Upper endoscopy with regular and side-viewing endoscope without any stigmata of bleeding, push enteroscopy without any active bleeding or stigmata (however did see blood in duodenum but no active bleeding) - repeat EGD 07/[address] Chauhan again no
bleeding
Trend Hb
Adv diet to regular
-Suspicion for sclerosing cholangitis, follow-up with Dr. Machado as outpatient in 6 to 8 weeks-- I sent message to office to call to schedule follow up - path normal reviewed with pt previously
-Recent diagnosis of bladder cancer, going to follow-up with her urologist as well- per family urology updated on current status await plan for possible rescheduled upcoming procedure
D/w hospitalist team
If hb stable, no further bleeding plan dc tmwr
Subjective
Subjective
Date of Service: July 26, 2024
no further bleeding
Hb to 9 with 1UPRBC
Objective
Data Reviewed
Laboratory Data:
Laboratory Results
07/26/24 06:39
Laboratory Results
PT 14.5 Sec (11.4-14.6) 07/23/24 04:16
INR 1.10 07/23/24 04:16
APTT 24.9 Sec (23.4-35.0) 07/22/24 07:10
Phosphorus 2.3 mg/dl (2.5-4.5) L 07/24/24 11:10
Magnesium 2.1 mg/dl (1.6-2.3) 07/26/24 06:39
Total Bilirubin 0.4 mg/dl (0.2-1.3) 07/25/24 07:39
AST 22 U/L (14-36) 07/25/24 07:39
ALT 21 U/L (0-35) 07/25/24 07:39
Alkaline Phosphatase 73 U/L (38-126) 07/25/24 07:39
Amylase 68 U/L (30-110) 07/22/24 07:10
Lipase 242 U/L (23-300) 07/22/24 07:10
Vital Signs and I&O:
Vital Signs
Temp Pulse Resp BP Pulse Ox
99.8 F 80 16 137/72 99
07/26/24 07:00 07/26/24 07:00 07/26/24 07:00 07/26/24 07:00 07/26/24 08:10
I&O
07/25/24 07/26/24 07/27/24
06:59 06:59 06:59
Intake Total 1320 / 1320 495 / 495
Output Total 1200 / 1200
Balance 120 / 120 495 / 495
Physical Exam
Physical Exam
GI: Non Distended and Non Tender
[2024-07-26] MEDS: FERRLECIT 110 MG IV (14:10)
[2024-07-26 15:00] VITALS: BP 149/72
--- NOTE | 2024-07-26 16:46 | CON.ID ---
Consultation
-
Date/Time Consultation Requested: 07/26/2024 1156
Date/Time Consultation Performed: 07/26/2024 1600
Requesting Provider: Dr. Feliciano
Performing Provider: Dr. Hooper
Reason for Consultation: Fever
Chief Complaint / Past History
History of Present Illness
Umu Masterson is a 74-year-old female being evaluated at the request of Dr. Feliciano regarding fever. History is obtained from chart review, along with patient interview. Additional history was obtained from patient's daughters who are at the
bedside.
The patient has a significant past medical history of bladder cancer, as well as a history of high-grade intrahepatic biliary stricture. Patient underwent ERCP on 07/20 to further workup irregular contours of her intrahepatic bile duct and to
address high-grade stricture therein. She reportedly did well immediately following the procedure, but the next day woke up and did not feel well. She was advised to come to the emergency room by her Cable Technician, and while in triage
experienced coffee-ground emesis. She was admitted and further evaluated by Gastroenterology with endoscopy. On 07/25 she underwent small bowel enteroscopy in the afternoon. Thereafter, she developed a fever at 1726, which continued through the
evening. She was started on empiric antibiotics, and today Infectious Diseases is asked to comment upon further antimicrobial management.
At present, she overall feels well. She has not had any fevers since late last evening. She denies any abdominal pain at present. She has complained of left upper extremity discomfort and swelling. A duplex ultrasound has revealed the presence
of left cephalic vein thrombus.
Past History
Additional Past Medical History:
Bladder CA
TIA
HTN
Hypothyroidism
Remote history of C. difficile
Additional Past Surgical History:
Allergy History:
propoxyphene HCl [From Darvon] Allergy (Verified 07/20/24 09:02)
Unknown
Medications Reviewed: Yes
Current Antibiotics:
Zosyn
Social History
Tobacco: Non-Smoker
Alcohol: Occasional
Drug: None
Living: With Family
Employment: Employed
Family History
Family History: Not Pertinent
Review of Systems
Vital Signs
Temp Pulse Resp BP Pulse Ox
99.2 F 82 16 149/72 98
07/26/24 15:00 07/26/24 15:00 07/26/24 15:00 07/26/24 15:00 07/26/24 15:00
Physical Exam
Physical Exam
Constitutional: No Acute Distress, Comfortable and Non-toxic
Head: Normocephalic
Eyes: Pupils Equal, Pupils Round, No Conjunctival Hemorrhage and Sclera Anicteric
Oral: No Thrush and No Ulcers
Cardiovascular: Regular Rate and S1/S2; Negative S3/S4
Pulmonary: Clear; Negative Wheezes, Rales or Rhonchi
Gastrointestinal: Soft, Non Tender, Non Distended and Normal Bowel Sounds
Extremities: Edema (LUE) and Erythema (Left antecubital area)
Skin: Warm and Dry
Neurological: Awake and Alert
Psychological: Calm
.
Lab / Diagnostic Study Results
07/26/24 06:39
Abs Immat Gran (auto) 0.0 10^3/uL (0-0.05) 07/22/24 07:10
Absolute Neuts (auto) 5.6 10^3/uL (1.4-6.5) 07/22/24 07:10
Absolute Lymphs (auto) 1.4 10^3/uL (1.2-3.4) 07/22/24 07:10
Absolute Monos (auto) 0.9 10^3/uL (0.1-0.6) H 07/22/24 07:10
Absolute Basos (auto) 0.0 10^3/uL (0-0.2) 07/22/24 07:10
Immature Gran % 0.5 % (0-0.5) 07/22/24 07:10
Neutrophils % 70.3 % (42.2-75.2) 07/22/24 07:10
Lymphocytes % 18.3 % (20.5-51.1) L 07/22/24 07:10
Monocytes % 10.8 % (1.7-9.3) H 07/22/24 07:10
Eosinophils % 0.0 % (0-6) 07/22/24 07:10
Basophils % 0.1 % (0-2) 07/22/24 07:10
PT 14.5 Sec (11.4-14.6) 07/23/24 04:16
INR 1.10 07/23/24 04:16
Lactic Acid 1.3 mmol/L (0.7-2.0) 07/22/24 07:10
Ur Squamous Epith Cells 0-2 /LPF (Few) 07/25/24 16:58
Microbiology Results
Micro:
07/25/24 16:39 Blood Culture - Pending
Blood/Venous
07/25/24 16:10 Blood Culture - Pending
Blood/Venous
Imaging:
07/24/2024 Duplex ultrasound left upper extremity: There is an intraluminal echogenicity in the cephalic vein at antecubital fossa and throughout the entire forearm. The basilic vein in the forearm is patent. Please see full dictation for
additional detail.
Assessment / Plan
Fever
GI bleed
Left upper extremity thrombus/thrombophlebitis
Leukocytosis
Bladder CA
TIA
HTN
Hypothyroidism
Remote history of C. difficile
Recommendations:
Patient has not had any fever since last evening. Source of fever may be multifactorial including postop, or secondary to the left upper extremity thrombus.
Continue with empiric Zosyn for today, although if cultures remain negative can likely discontinue tomorrow.
[2024-07-26 17:42] LABS: Hemoglobin 9.8 g/dL (12.0-16.0)
[2024-07-26] MEDS: TYLENOL 650 MG PO (20:29)
[2024-07-26] MEDS: ZOLOFT 50 MG PO (21:37)
[2024-07-26] MEDS: LIPITOR 10 MG PO (21:37)
[2024-07-26 22:50] VITALS: BP 143/67
[2024-07-27] MEDS: ZOSYN 50 IV (03:11)
[2024-07-27] MEDS: SYNTHROID 88 MCG PO (03:11)
[2024-07-27] MEDS: TYLENOL 650 MG PO ×2 (03:54→12:46)
--- NOTE | 2024-07-27 06:42 | W.PN.GI.CBS2 ---
Today's Communication / Plan
-
Please see assessment and plan for details.
Assessment / Plan
-
1. GI bleed: Secondary to postsphincterotomy bleeding, though has been stable now for 2 days, no significant signs of bleeding, hemoglobin has remained stable. Will await morning hemoglobin, though if again stable we will hold on further GI workup
and sign off for now. Follow-up has been arranged with Dr. Machado.
Subjective
Subjective
Date of Service: July 27, 2024
Patient complaining of left upper arm pain, though otherwise has been doing well. No bowel movements overnight, no vomiting, tolerated diet without difficulty.
Objective
Data Reviewed
Laboratory Data:
Laboratory Results
PT 14.5 Sec (11.4-14.6) 07/23/24 04:16
INR 1.10 07/23/24 04:16
APTT 24.9 Sec (23.4-35.0) 07/22/24 07:10
Phosphorus 2.3 mg/dl (2.5-4.5) L 07/24/24 11:10
Magnesium 2.1 mg/dl (1.6-2.3) 07/26/24 06:39
Total Bilirubin 0.4 mg/dl (0.2-1.3) 07/25/24 07:39
AST 22 U/L (14-36) 07/25/24 07:39
ALT 21 U/L (0-35) 07/25/24 07:39
Alkaline Phosphatase 73 U/L (38-126) 07/25/24 07:39
Amylase 68 U/L (30-110) 07/22/24 07:10
Lipase 242 U/L (23-300) 07/22/24 07:10
Vital Signs and I&O:
Vital Signs
Temp Pulse Resp BP Pulse Ox
98.0 F 74 16 143/67 98
07/26/24 22:50 07/26/24 22:50 07/26/24 22:50 07/26/24 22:50 07/26/24 22:50
I&O
07/25/24 07/26/24 07/27/24
06:59 06:59 06:59
Intake Total 1320 / 1320 495 / 495 1210 / 1210
Output Total 1200 / 1200
Balance 120 / 120 495 / 495 1210 / 1210
Physical Exam
Physical Exam
General: NAD
Abdomen: normal bowel sounds, soft, no tenderness, no masses or bruits, no ascites
[2024-07-27 07:00] VITALS: BP 138/63
[2024-07-27 07:34] LABS: Hematocrit 25.5 % (37.0-47.0); Hemoglobin 9.3 g/dL (12.0-16.0); Mean Corp Hgb Conc. 36.5 g/dL (33.0-37.0); Mean Corpuscular Hgb 31.6 pg (27.0-31.0); Mean Corpuscular Volume 86.7 fL (81.0-99.0); Mean Platelet Volume 10.7 fL (7.4-10.4); Platelet Count 249 10^3/uL (130-400); Red Blood Cell Count 2.94 10^6/uL (4.20-5.40); Red Cell Dist. Width 14.3 % (11.5-14.5); White Blood Cell Count 11.2 10^3/uL (4.8-10.8)
[2024-07-27 08:16] LABS: Blood Urea Nitrogen 11 mg/dl (7-17); Calcium 9.3 mg/dl (8.4-10.2); Carbon Dioxide 27 mmol/L (22-30); Chloride 108 mmol/L (98-107); Estimated Creatinine Clearance 36 ml/min; Glucose 99 mg/dl (70-99); Magnesium 2.2 mg/dl (1.6-2.3); Potassium 3.1 mmol/L (3.5-5.1); Sodium 140 mmol/L (135-145); eGFR 52.08
--- NOTE | 2024-07-27 08:52 | W.PN.HOSP.TC ---
Addendum entered and electronically signed by Kelli Burr MD 07/27/24 14:54:
I saw and evaluated the patient independently. I reviewed the resident�s note and agree with findings and plan as documented by Dr. Feliciano.
GENERAL: well developed, well nourished, female in no apparent distress
HEENT: NC/AT no O2 requirements
HEART: regular rate and rhythm, +S1, +S2
LUNGS : clear to auscultation bilaterally
ABDOM: soft, minimal tenderness in midepigastric region, nondistended, + bowel sounds
EXT: no cyanosis, clubbing, or edema--left arm sore to touch and swollen firm area
NEUROLOGIC: grossly intact
acute anemia due to acute blood loss from Post ERCP upper GI bleed--HGB 07/13/24 was 12.6--s/p 5 units pRBC--CT scan suggesting mild gastroenterocolitis--tolerating diet--PPI BID--serial H&H--apprec GI input--hold asa--overnight 07/25 early AM had
passage of melanotic stool with clots--explained reasoning of GI wanting to repeat EGD in detail (about 30 minutes) with pt, , and daughter-- repeat EGD 07/25 without acute bleeding
fever--101.3--could be gut translocation of bacteria, superficial thrombophlebitis, bladder ca--blood culture x 2, UA with reflex to culture, CXR with atelectasis vs pna (doubt as no resp symptoms) and start zosyn empirically-- cultures neg, can
stop abx--apprec ID input
Transaminitis could be transient from post ERCP, doubt developing post ERCP pancreatitis (lipase only 472 and no abdominal pain)--Hepatocellular pattern--CT abdomen pelvis suggesting mild gastroenterocolitis--Hold statin
swollen/painful left arm--US c/w superficial thrombophlebitis--warm compresses
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
Essential hypertension--Continue amlodipine
Hypothyroidism--Continue levothyroxine
Newly diagnosed bladder cancer--Supposed to have cystoscopy next week
Hypothyroidism--Continue levothyroxine
Hyperlipidemia--Hold statin
Anxiety/depression--Continue sertraline
DVT proph--SCDs
Code status--Full code
Original Note:
Today's Communication/Plan
-
Discharge home today
Assessment / Plan
Assessment / Plan
74 yo F with PMH suspected biliary stricture s/p ERCP 07/20, bladder cancer, HTN who presented to ED for weakness. While in ED, she had large bloody BM and hematemesis. Labs on admission were notable for hgb 8.1, elevated LFTs (AST 96, ALT 96),
mildly elevated lipase (472). CT suggesting mild gastroenterocolitis.
Acute anemia due to acute blood loss from s/p ERCP upper GI bleed
�Prior to ERCP HGB 07/13/24 was 12.6, then 8.1 on admission. Esau to 6.8 this hospitalization.
�S/p 4 units pRBC. Followed by appropriate rise in hemoglobin�peak of 9.6 on 07/22. S/p 1 additional unit pRBC 07/25. (total of 5 units this admission) She has been crossmatched for 1 additional unit as precaution.
�GI following, appreciate recs.
�EGD 07/22/24 showed hematin/blood in gastric body and duodenum; no source identified, no active bleeding/stigmata---repeat EGD 07/25 also did not identify source of bleeding.
� Most recently, hemoglobin stable at 9.3 this morning. No signs of GI bleeding since BM 07/25. Stable for discharge home. Return precautions reviewed.
- Tolerating regular diet. Continue protonix. Follow up with GI outpatient.
- Update: Later in day patient passed black tarry BM. Most likely old blood products, still with no signs of new bleeding. Discussed with GI, plan remains for discharge home today.
Patient is in need of a semi-electric hospital bed with foam mattress due to the need to elevate head of bed above 30 degrees to prevent aspiration and to facilitate frequent repositioning to prevent bed ulcers and pressure points.
Fever of unknown origin, started 07/25-- blood cultures drawn, UA appears noninfectious. Chest xray showed possible pneumonia vs atelectasis; patient denies respiratory symptoms. IS.--- Given the concern of active upper GI bleed, IV zosyn started
07/25-- Tmax 101.4 07/25 2024, afebrile since then--Mild leukocytosis likely reactive to prior GI bleed/EGDs. Overall well appearing and no infectious symptoms. Discontinue antibiotics. Stable for discharge home, return precautions reviewed.
Transaminitis�resolved, suspect this was transient from post ERCP�Hepatocellular pattern on admission� Mildly elevated lipase on admission --> wnl. CT suggesting mild gastroenterocolitis, not consistent with pancreatitis.
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 She will follow-up with GI outpatient (Dr. Machado) in 6 to 8 weeks for possible
sclerosing cholangitis.
Superficial thrombophlebitis at prior IV site-- Peripheral venous ultrasound showed left cephalic vein at antecubital fossa and throughout entire forearm-- Fortunately, no evidence of DVT�will defer pharmaceutical anticoagulation given recent
bleeding-- Continue supportive management including warm compresses, elevation of hand. Ring removed, rec avoid jewelry use until fully resolved.-- Signifiantly improving
Essential hypertension-- home amlodipine was held on admission due to acute bleed. Then restarted on 07/24-- will continue.
Hypothyroidism--Continue home levothyroxine.
Newly diagnosed bladder cancer--Supposed to have cystoscopy next week. Follow-up with urology outpatient.
Hyperlipidemia--statin was held due to LFTs. Restarted atorvastatin 07/23-- will continue.
Anxiety/depression--Continue home sertraline. Mood is very down while in the hospital, will continue to reassess regularly. Not actively suicidal. Can consider psychiatry consult for medication recommendations if patient agreeable. Otherwise
will follow up with pcp.
Code status: Full
VTE ppx: SCDs
Diet: regular
Dispo planning: discharge home today with home health
Anticipated Discharge: Today
Subjective/Interval History
-
Date of Service: July 27, 2024
No acute events overnight. No complaints this morning besides persistent left arm discomfort and tenderness; swelling is improved. Review of systems negative-- denies dizziness, chest pain, shortness of breath, abdominal pain, nausea, vomiting,
diarrhea, constipation. Tolerated regular diet yesterday. Her last bowel movement was on 07/25/24 when she had the bloody stool; no BM or blood per rectum since.
Objective Data
-
Labs:
Laboratory Results
07/27/24
06:17
WBC 11.2 H
Hgb 9.3 L
Hct 25.5 L
Plt Count 249 D
Sodium 140
Potassium 3.1 L
Chloride 108 H
Carbon Dioxide 27
BUN 11
Creatinine 1.1 H
Glucose 99
Calcium 9.3
Vital Signs:
Vital Signs
Temp Pulse Resp BP Pulse Ox
98.0 F 74 16 143/67 98
07/26/24 22:50 07/26/24 22:50 07/26/24 22:50 07/26/24 22:50 07/26/24 22:50
I&O
07/26/24 07/27/24 07/28/24
06:59 06:59 06:59
Intake Total 495 / 495 1210 / 1210
Balance 495 / 495 1210 / 1210
Review of Systems
-
History Source: Patient
All other systems: Reviewed and negative
Physical Exam
-
General: No Apparent Distress, Comfortable and Conversant; Negative Pain, Fever, Chills or Sweats
HEENT: Normocephalic, Atraumatic and Anicteric
Respiratory: Clear to Auscultation and Non Labored Respirations; Negative Wheezes or Rhonchi
Cardiac: Regular Rhythm and S1/S2
GI: Soft, Nontender, Nondistended and Normal Bowel Sounds
Rectal: Deferred by Provider
Musculoskeletal: No Clubbing, No Cyanosis, No Edema (No edema of lower extremities, right upper extremity), Edema, Left Upper Extrem and Other (Left antecub tender to palpation. No erythema, fluctuance, palpable cord, drainage. Active and passive
range of motion and strength intact bilaterally. Left hand with nonpitting edema significantly improving, none on the right.)
Skin: Warm and Dry
Neuro: Awake, Alert, Oriented and Nonfocal/Grossly Intact
Psych: Calm
Data Reviewed
-
Diagnostic Radiology: Image personally visualized and interpreted and Report Reviewed by me
CT Scan: Report Reviewed by me
Medical Tests (Nuc Med, Echo etc): Report Reviewed by me
Labs: Labs Reviewed by me, Discussed with Physician, Discussed with Nurse, Discussed with Patient and Discussed with Family
Old Records: Reviewed
[2024-07-27] MEDS: NORVASC 5 MG PO (09:53)
[2024-07-27] MEDS: PROTONIX 40 MG PO (09:53)
[2024-07-27] MEDS: KCL 40 MEQ PO (10:54)
[2024-07-27] MEDS: ZOSYN IV (11:02)
--- NOTE | 2024-07-27 11:23 | CM ---
CM reviewed chart, reviewed with Hospitalist and Residents, patient for discharge today. Patient seen bedside with daughters and , family to transport home. Patient agreeable to VN, also requesting a hospital bed, TT to [facility] Liaison who
will order hospital bed. IMM reviewed, signed, placed in chart, patient provided with copy. CM will continue to follow for all discharge planning needs.
Plan; home with [facility], hospital bed to be ordered
[2024-07-27 12:43] VITALS: BP 163/83
--- NOTE | 2024-07-27 14:48 | VNURNOTE ---
Home health liaison faxed paperwork to [employer] for electric hospital bed (per patient's request)
--- NOTE | 2024-07-27 14:52 | W.DCSUMMARY ---
Addendum entered and electronically signed by Kelli Burr MD 07/27/24 18:33:
Read, reviewed, and agree. See same day progress note for additional details. Time spent coordinating care, DC planning, review of DC plan of care with resident, transition of care, review of records in EMR, med rec, consults, notes, d/w
consultants, nursing, family, and CM = 38 minutes
Original Note:
Discharge Summary
Discharge Data
Date of Admission: 07/21/24
Date of Discharge: 07/27/24
-
Pending Results: Yes
Additional Pending Results:
07/25/24 16:10 Blood/Venous Blood Culture - Preliminary
No Growth in 24 hours- Final report to follow
07/25/24 16:39 Blood/Venous Blood Culture - Preliminary
No Growth in 24 hours- Final report to follow
Hospital Course
CC TO PRIMARY CARE PROVIDER ROSEANN ZHAO
Discharging Physician : Dr. Feliciano/Dr. Burr
Disposition : Home with home health
Primary care physician : Roseann Zhao
Principal Discharge diagnosis :
Acute blood loss anemia secondary to upper GI bleed status post recent ERCP and sphincterotomy
Abnormal liver enzymes, likely transient status post ERCP
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
Superficial thrombophlebitis of left arm
Fever without signs of infection
Chronic Discharge diagnosis :
Essential hypertension
Hypothyroidism
Hyperlipidemia
Anxiety/depression
Recently diagnosed bladder cancer
Hospital Course :
Presented to ED for weakness and subsequently had melena and coffee ground emesis. Labs on admission were notable for hemoglobin of 8.1, consistent with acute blood loss anemia secondary to post ERCP/sphincterotomy upper GI bleed. Gastroenterology
was consulted. She underwent 2 EGDs, neither of which showed active bleeding or source. She received a total of 5 units of PRBC transfusion, and her hemoglobin was stable at discharge. During this hospitalization, she was briefly febrile and as a
precaution given upper GI bleed, blood cultures were obtained and IV antibiotics started. She remained stable, clinically improving, with no infectious source; antibiotics were discontinued. She was found to have superficial thrombophlebitis of her
left upper extremity; this was managed conservatively with supportive care. Her other chronic conditions remained stable. On day of discharge she was stable. She was discharged home with home health.
Important imaging findings :
Abdomen/pelvis CT 07/21/2024
IMPRESSION:
CT findings suspicious for a mild gastroenterocolitis. Moderate to large volume stool in the sigmoid colon and rectum suggesting a degree of constipation.
Mild urinary bladder wall thickening. Recommend correlation with a urinalysis.
Chest x-ray 07/21/2024
FINDINGS:
No focal consolidation, pleural effusion, or pneumothorax. The cardiomediastinal silhouette is normal. Mild thoracic levoscoliosis.
IMPRESSION:
No acute cardiopulmonary process.
Abdomen/pelvis CTA 07/22/2024
IMPRESSION:
1. No CT evidence for active GI bleed.
2. Mild constipation. No other significant abnormality identified in the abdomen or pelvis within the limits of this exam, as described above.
Peripheral vascular ultrasound 07/24/2024
FINDINGS: The left internal jugular, subclavian, axillary, basilic, brachial and cephalic veins are patent and compressible with normal flow to the level of the antecubital fossa except for the subclavian which is not compressible only because of
location.
There is intraluminal echogenicity in the cephalic vein at antecubital fossa and throughout the entire forearm. The basilic vein in the forearm is patent.
IMPRESSION: Thrombus formation of the left cephalic vein as described above.
Chest xray 07/25/24
FINDINGS:
Lungs: Increased patchy mild left basilar airspace opacity. No significant pleural effusions. No visualized pneumothorax.
Heart: Cardiac and mediastinal contours are unremarkable. No overt pulmonary vascular congestion.
Osseous structures: No acute abnormalities.
IMPRESSION:
Slightly increased patchy left basilar atelectasis and/or pneumonia.
Procedure findings :
Upper GI endoscopy 07/22/2024
Impression: - No gross lesions in the entire esophagus.
- Z-line regular, 40 cm from the incisors.
- Hematin (altered blood/cyyybi-[id number]-nwbi material)
in the gastric body.
- Blood in the second portion of the duodenum, in the
third portion of the duodenum and in the fourth
portion of the duodenum.
- Blood in the entire examined duodenum.
- No specimens collected.
Upper GI endoscopy 07/25/24
Impression: - Normal esophagus.
- Normal stomach. No blood.
- Erosion at the sphincterotomy site without stigmata
of hemorrhage. No blood in duodenum.
- The examined portion of the jejunum was normal. No
blood in examined portion of jejunum.
- No specimens collected.
Discharge Plan
-
Patient Disposition: Home with Home Care
Discharge Diagnosis/Procedures: Acute blood loss anemia secondary to upper GI bleed status post recent ERCP and sphincterotomy
Abnormal liver enzymes, likely transient status post ERCP
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
Superficial thrombophlebitis of left arm
Fever without signs of infection
Essential hypertension
Hypothyroidism
Hyperlipidemia
Anxiety/depression
Recently diagnosed bladder cancer
Condition: Good
Diet: As tolerated, Regular and Other diet
Additional Diets: As directed by your GI team
Activity: As tolerated and With Walker
Additional Activity: Continue to use CAM boot on left foot as directed by your assistant director of admissions
Driving Restrictions: No driving for 24 hours
Bathing Restrictions: OK to Shower
Blood Work: Repeat CBC and CMP in 1 week with Primary Care or GI
Other Services: VN, PT and OT
Activity Restrictions/Additional Instructions:
Continue to use warm compresses and keep left arm elevated when resting. You can use acetaminophen if needed for the pain. Avoid ibuprofen, naproxen, and other NSAIDs because of your recent GI bleed.
Return to the emergency room or call your doctor if you have any of the following:
black or bloody bowel movements
vomit that looks like coffee grounds or bloody
feeling lightheaded or dizzy, short of breath, palpitations, worsening weakness
feeling generally ill or have a fever (temp 100.4 F or higher)
Instructions: Endoscopic retrograde cholangiopancreatography (ERCP) - Discharge instructions, GI bleed - Discharge instructions
Referrals:
Michelle Grimm MD [Non-Admitting Privileges] - (Follow-up with your urologist as planned. Please note that your next appointment may be at a different location than this address. Call the office if you have any questions.)
Roseann Zhao, DO [Family Provider] - in less than 1 week (Call your Primary Care Provider to schedule follow up appointment within 1 week of hospitalization.)
Nannette Machado, [Active] - in one to two months (Call the gastroenterology (GI) office to arrange follow up with Dr. Machado or [facility]KE 6-8 weeks )
Additional Discharge Medication Instructions: New medications:
Pantoprazole 40mg tablet-- Take 1 tablet two times per day.
For medication questions or refills, please call your primary care provider or the gastroenterology office.
Prescriptions:
New
pantoprazole 40 mg Tablet,Delayed Release (Dr/Ec)
40 mg PO BID Qty: 60 0RF
acetaminophen 325 mg Tablet
650 mg PO Q6HPRN PRN (Reason: mild pain/headache) Qty: 0 0RF
Continued
levothyroxine [Synthroid] 88 MCG tablet
88 mcg PO DAILY
amlodipine 5 MG tablet
5 mg PO DAILY
simvastatin 5 mg Tablet
5 mg PO HS
sertraline [Zoloft] 50 mg Tablet
50 mg PO HS
Zinc (with A and C) Lozenges Lozenge
1 lori PO DAILYPRN PRN (Reason: cold symptoms)
Discharge Orders:
Discharge Patient (As Directed); Ordered 07/27/24
Ordered By: Yolanda Feliciano
Discharge Date and Time
Discharge Date/Time: 07/27/24 16:23
Print Language: CAMEROONIAN
[2024-07-27 15:00] VITALS: BP 160/81
[2024-07-27] MEDS: FERRLECIT IV (16:01)
== END 2024-07-27 16:23 | disposition home health service (06) | DRG 919 ==
LOC: 4 WEST ACU 18:14
PROVIDERS: Internal Medicine Critical Care Medicine; Internal Medicine Gastroenterology; Nurse Practitioner Adult Health; Nurse Practitioner Family; Physician Assistant; Student in an Organized Health Care Education/Training Program; ADMITTING PHYSICIAN Hospitalist; ATTENDING PHYSICIAN Internal Medicine; CONSULT PHYSICIAN Internal Medicine; CONSULT PHYSICIAN Internal Medicine Gastroenterology; CONSULT PHYSICIAN Internal Medicine Infectious Disease; EMERGENCY PHYSICIAN Emergency Medicine; FAMILY PHYSICIAN Family Medicine
PROC: 30233N1 Transfusion of Nonautologous Red Blood Cells into Peripheral Vein, Percutaneous Approach (ICD-10-PCS; 2024-07-21)
PROC: 0DJ08ZZ Inspection of Upper Intestinal Tract, Via Natural or Artificial Opening Endoscopic (ICD-10-PCS; 2024-07-22)
DX: K91.840 Postprocedural hemorrhage of a digestive system organ or structure following a digestive system procedure (principal); K83.1 Obstruction of bile duct; K92.2 Gastrointestinal hemorrhage, unspecified; D62 Acute posthemorrhagic anemia; K92.1 Melena; K83.09 Other cholangitis; I82.612 Acute embolism and thrombosis of superficial veins of left upper extremity; Y84.8 Other medical procedures as the cause of abnormal reaction of the patient, or of later complication, without mention of misadventure at the time of the procedure; E03.9 Hypothyroidism, unspecified; I10 Essential (primary) hypertension; R11.2 Nausea with vomiting, unspecified; R74.8 Abnormal levels of other serum enzymes; C67.9 Malignant neoplasm of bladder, unspecified; K52.9 Noninfective gastroenteritis and colitis, unspecified; R53.1 Weakness; F32.A Depression, unspecified; E78.00 Pure hypercholesterolemia, unspecified; I95.89 Other hypotension; K31.89 Other diseases of stomach and duodenum; R50.9 Fever, unspecified; I80.8 Phlebitis and thrombophlebitis of other sites; D50.9 Iron deficiency anemia, unspecified; K59.00 Constipation, unspecified; F41.9 Anxiety disorder, unspecified; W06.XXXA Fall from bed, initial encounter; Y93.89 Activity, other specified; Y92.9 Unspecified place or not applicable; Z86.73 Personal history of transient ischemic attack (TIA), and cerebral infarction without residual deficits; Z87.891 Personal history of nicotine dependence; Z90.49 Acquired absence of other specified parts of digestive tract; Z79.82 Long term (current) use of aspirin; Z79.890 Hormone replacement therapy; Z86.19 Personal history of other infectious and parasitic diseases
CPT/HCPCS: 71045; 71046; 74174; 74177; 80048; 80053; 81003; 81015; 82150; 83605; 83690; 83735; 84100; 84484; 85014; 85018; 85025; 85027; 85610; 85730; 86850; 86900; 86901; 86920; 87040; 93005; 93971; 96374; 97116; 97163; 97530; 99285; J2916; P9016; Q9967

== ENCOUNTER 2024-07-28 18:21 | Inpatient (IN) | payer BC, SELFPAY ==
[2024-07-28 14:33] VITALS: BP 123/87
--- NOTE | 2024-07-28 17:17 | HPS.HSE ---
Family Physician
-
Family Physician:
Chief Complaint
-
melena
left UE redness
History of Present Illness
74-year-old female with past medical history for hypertension, hypothyroidism, anemia, ENA, C. difficile colitis presented to us with l worsening of lower extremities redness.Patient was also diagnosed on July 24 with a left cephalic vein
thrombus, and was encouraged to apply warm compresses. Patient reports that over the last 24 hours, her left arm is more swollen and very red. The redness streaks from her entire forearm up towards her left upper arm near her shoulder. Patient
denies fevers and chills. She reports ongoing bloody stool. Her last dark bowel movement was today afternoon she reports she feels fatigued. Patient reports that her left arm is very tender to the touch. Patient denied any abdominal pain,
nausea, vomiting. Patient denies any headache, dizziness syncope. Patient denied any chest pain or short of breath. Patient denied dysuria materia.
CBC, CMP pending. Ultrasound of left upper extremity is pending. Admitting for further management
Medical History
Past Medical History
Past Medical History: Reports Other
Additional Past Medical History:
C. difficile colitis
arthritis of carpometacarpal joint
Anemia hyperlipidemia
Anxiety depression
Hypertension
Hypothyroidism
Osteopenia
Past Surgical History: Reports Other
Additional Past Surgical History:
Retina surgery
Social History
Tobacco: Non-smoker
Alcohol: None
Drug: None
Living: With Family
Family History
Family History: Not pertinent
Allergies / Home Medications
Allergies reflects when Allergies were last updated in [employer].
Home Medications with original date entered in [employer]
Allergy/Medication List:
Allergies
Allergy/AdvReac Type Severity Reaction Status Date / Time
propoxyphene HCl Allergy Mild numbness Verified 07/28/24 14:33
[From Darvon] in hand
and feet
Home Medications
levothyroxine 88 mcg tablet (Synthroid) 88 mcg PO DAILY Thyroid 08/31/09
amlodipine 5 mg tablet 5 mg PO DAILY Blood Pressure 11/06/17
sertraline 50 mg tablet (Zoloft) 50 mg PO HS Mental Health/Anxiety 07/20/24
simvastatin 5 mg tablet 5 mg PO HS High Cholesterol 07/20/24
vit A-vit [id number] lozenges (Zinc (with Vitamins A and C) Lozenges) 1 lori PO DAILYPRN PRN cold symptoms 07/21/24
pantoprazole 40 mg tablet,delayed release 40 mg PO BID Gastrointestinal issue #60 tabs 07/24/24
acetaminophen 325 mg tablet 650 mg (2 x 325 mg) PO Q6HPRN PRN mild pain/headache #0 tabs 07/27/24
Review of Systems
-
Constitutional: Reports No Symptoms
EENT: Reports No Symptoms
Respiratory: Reports No Symptoms
Cardiac: Reports No Symptoms
Abdomen/GI: Reports Diarrhea and Bloody Stools
: Reports No Symptoms
Musculoskeletal: Reports No Symptoms
Skin: Reports Other (Left upper extremity has redness and swelling)
Neurological: Reports No Symptoms
Endocrine: Reports No Symptoms
Hematologic/Lymphatic: Reports No Symptoms
Psych: Reports No Symptoms
Physical Exam
Vital Signs
Vital Signs
Temp Pulse Resp BP Pulse Ox
97.6 F 79 18 123/87 98
07/28/24 14:33 07/28/24 14:33 07/28/24 14:33 07/28/24 14:33 07/28/24 14:33
Physical Exam
General: Well Developed, Well Nourished and No Apparent Distress
HEENT: NormoCephalic, Moist mucous membranes and Atraumatic
Respiratory: Clear
Cardiac: S1/S2 and Regular Rhythm; No Murmur or Rub
GI: Soft, Non Tender, Non Distended and Normal Bowel Sounds; No Organomegaly
Rectal: Deferred by Provider
Musculoskeletal: No Clubbing, No Cyanosis and No Edema
Skin: Rash and Other (Patient's dorsal medial left forearm is very red and warm and tender to the touch. There is streaking lymphangitis up medial upper arm.)
Neuro: AO x 3 and Nonfocal/grossly intact
Psych: Calm
Impression/Plan
-
# Persistent melena
# Upper GI bleed
-CT with impression of mild gastroenterocolitis
-Repeat EGD with without acute bleeding
-Clear liquid diet
-Hemoglobin 10.1
-GI consulted
# Thrombus of the left cephalic vein in the antecubital fossa
# Worsening redness of the left upper extremities likely cellulitis
-wbc 12.1
-IV Ancef continued
-Tylenol as needed for fever and pain
-hematology consulted
#intrahepatic biliary ductal system abnormality/high-grade stricture of common hepatic duct--Underwent ERCP with biopsy 07/20/24--path without any tumor identified
#Essential hypertension--Continue amlodipine
#Hypothyroidism--Continue levothyroxine
#Newly diagnosed bladder cancer--Supposed to have cystoscopy next week
#Hypothyroidism--Continue levothyroxine
#Hyperlipidemia- statin
#Anxiety/depression--Continue sertraline
#DVT proph--SCDs
#Code status--Full code
--- NOTE | 2024-07-28 17:21 | ED.GENMED ---
History of Present Illness
General
Chief Complaint: Skin Problem
Source: patient and family
Exam Limitations: none
Time Seen by Provider: 07/28/24 17:01
Nursing documentation reviewed up to this point in time: agreed with
History of Present Illness
History of Present Illness:
The patient is a 74-year-old female who was recently admitted and discharged yesterday after being treated for an upper GI bleed. Patient was also diagnosed on July 24 with a left cephalic vein thrombus, and was encouraged to apply warm
compresses. Patient reports that over the last 24 hours, her left arm is more swollen and very red. The redness streaks from her entire forearm up towards her left upper arm near her shoulder. Patient denies fevers and chills. She reports
ongoing dark stool. Her last dark bowel movement was earlier this morning. She reports she feels fatigued. Patient reports that her left arm is very tender to the touch.
Past History
Past History
ED Past Medical History: HTN, Hypothyroidism, Other (anemia, TIA, Concussion, C-diff) and Other (C-diff colitis 10/2017)
ED Past Surgical History: and Other (cataracts, right eye surgery); Negative Appendectomy, Bowel resection, Cardiac or Cholecystectomy
Patient has exhibited threatening behavior?: No
PSI?: No
Social History
Tobacco: Former smoker
Alcohol: Occasional
Drug: None
Personal:
Living: with family
Employment: Retired
Family History
Family History: Other (Noncontributory)
Review of Systems
Review of Systems
Allergies reviewed?: Yes
All Other Systems: ROS reviewed and negative except as documented in HPI and ROS
Constitutional: Reports no symptoms
EENT: Reports no symptoms
Respiratory: Reports no symptoms
Cardiac: Reports no symptoms
ABD/GI: Reports black stools
: Reports no symptoms
Musculoskeletal: Reports edema
Skin: Reports other
Neurological: Reports no symptoms
Endocrine: Reports no symptoms
Hematologic/Lymphatic: Reports no symptoms
Psychiatric: Reports no symptoms
Phy Exam
Physical Exam
Physical Exam:
Physical Exam
General: no apparent distress. Patient appears slightly pale
Neck: supple. no meningeal signs. normal psoterior pharynx
Heart: s1/s2 regular rate and rhythm, no murmur. equal radial pulses.
Lungs: no acute respiratory distress. clear bilaterally
Abdomen: normal bowel sounds. not tender. no CVAT
Neuro: alert and oriented. no focal neurological deficits
Skin: Patient's dorsal medial left forearm is very red and warm and tender to the touch. There is streaking lymphangitis up medial upper arm. Strong pulses in bilateral hands. Full movement of hands and fingers
bilaterally.
Psychiatric: well kept. interactive and cooperative
Extremities: no edema. no calf tenderness. negative homans. good distal pulses
Course
Orders/Labs/Results
Orders:
Orders
07/28/24 14:39
Periph Venous Upr Ext Left US [US Periph Venous UPPER Ext LT] Urgent
Comment:
Reason For Exam: swelling, redness and known DVT
07/28/24 17:41
CeFAZolin 1 GRAM [Ancef] 1 gram in 5 ml IV NOW
07/28/24 17:42
Admit/Transfer Patient As Directed
Co-Sign Provider:
Level of Care: Inpatient admission
Assign to:: Medical/Surgical
Physician / Group: diamond mclean
Diagnosis: cellulitis
Reason for Hospitalization: cellulitis
Expected length of stay greater than two midnights?: Yes
ELOS- Estimated Length of Stay in days: 3
I certify the patient meets the requirements for IP care: Yes
PRN Pain Medication Management As Directed
May give lesser potent ordered pain med per pt: Yes
preference::
Protocol:: Medication orders for pain may be administered in a
manner that supports deferring to patient preference
when the pt is:
- Requesting an ordered lesser potent pain medication.
Least to most potent pain medications are defined
as: acetaminophen < NSAID < tramadol < opioids
(morphine, oxycodone, hydromorphone).
- Requesting a lesser dose of the same medication IF
ORDERED.
- Requesting a less intrusive route of administration
if both routes are prescribed by the provider (PO <
IV).
07/28/24 17:43
Code Status As Directed
Resuscitation Status: Full Code
07/28/24 17:45
HEMATOLOGY CONSULT Routine
Consulting Provider: Hardeep Goins
Was physician already notified: Yes
07/28/24 17:58
Complete Blood Count/With Diff Urgent
Comprehensive Metabolic Panel Urgent
Abnormal Lab Results
07/28/24
17:58
WBC 12.3 H 10^3/uL
(4.8-10.8)
RBC 3.25 L 10^6/uL
(4.20-5.40)
Hgb 10.1 L g/dL
(12.0-16.0)
Hct 29.3 L %
(37.0-47.0)
MCH 31.1 H pg
(27.0-31.0)
Plt Count 422 H D 10^3/uL
(130-400)
Abs Immat Gran (auto) 0.2 H 10^3/uL
(0-0.05)
Absolute Neuts (auto) 8.7 H 10^3/uL
(1.4-6.5)
Absolute Monos (auto) 1.5 H 10^3/uL
(0.1-0.6)
Immature Gran % 1.3 H %
(0-0.5)
Lymphocytes % 14.0 L %
(20.5-51.1)
Monocytes % 12.0 H %
(1.7-9.3)
07/28/24 17:58
Vital Signs
Initial and Last Documented VS:
Initial Vital Signs
Temp Pulse Resp BP Pulse Ox
97.6 F 79 18 123/87 98
07/28/24 14:33 07/28/24 14:33 07/28/24 14:33 07/28/24 14:33 07/28/24 14:33
Last Documented Vital Signs
Temp Pulse Resp BP Pulse Ox
97.6 F 74 16 123/87 98
07/28/24 14:33 07/28/24 18:01 07/28/24 18:01 07/28/24 14:07/28/24 18:01
MDM/Problems Addressed
Differential Diagnosis Includes:
Left arm thrombophlebitis, left arm cellulitis, acute blood loss anemia
MDM/Problems Addressed:
Patient presents with acute swelling and redness of left forearm and left upper arm
*Pulse Oximetry
Patient hypoxic: no
*EKG
Interpreted by ED Provider?: NA
*Warehouse Foreman Interpretation
Rate: Warehouse Foreman- N/A
*Critical Care Note
Total Time (30-74mins, 75-104mins- exclusive of procedures): Not Applicable
Data Reviewed
Review of Other/Old Records Reveals: Discharge Summary (Discharge summary reviewed from 07/27/2024 when patient was admitted for melena and found to have a left cephalic vein thrombus)
Source: patient and family
Patient Management
Discussion with other providers: Hospitalist and Other (Case discussed with hematology, Dr. Goins, who recommended antibiotics for likely cellulitis and thrombophlebitis)
ED Attending Note
-
Portions of this chart may have been created with voice recognition software.� Occasional wrong word or��sound alike� substitutions may have occurred due to the inherent limitations of voice recognition software.
Discharge Plan
Departure
Patient Disposition: Admit
Date of Disposition: 07/28/24
Time of Disposition: 18:10
Admit to: Med/Surg
Presentation/result/management discussed w/ accepting MD/DO: Hospitalist
Patient with high blood pressure during this ER visit?: No
Condition: Good
Covid-19: Not Applicable
Discharge Problem:
Acute blood loss anemia, Acute upper GI bleed, Cellulitis of left upper extremity, Thrombophlebitis of arm, left
Prescriptions:
No Action
levothyroxine [Synthroid] 88 MCG tablet
88 mcg PO MOTUWETHFRSA
amlodipine 5 MG tablet
5 mg PO DAILY
simvastatin 5 mg Tablet
5 mg PO HS
sertraline [Zoloft] 50 mg Tablet
50 mg PO HS
pantoprazole 40 mg Tablet,Delayed Release (Dr/Ec)
40 mg PO BID Qty: 60 0RF
acetaminophen 325 mg Tablet
650 mg PO Q6HPRN PRN (Reason: mild pain/headache) Qty: 0 0RF
Interventions
Interventions:
*Risk Screen - Suicide Last Done: 07/28/24 18:11
*General Assessment Last Done: 07/28/24 14:33
*Neglect/Abuse Screening Last Done: 07/28/24 14:33
*ED- Fall Risk Assessment Last Done: 07/28/24 17:58
*ED COVID-19 Vaccine History Last Done: 07/28/24 17:58
ED-Skin Assessment Last Done: 07/28/24 18:01
Discharge Date and Time
Print Language: YI
[2024-07-28 17:58] VITALS: BMI 23.9
--- NOTE | 2024-07-28 18:00 | W.PN.UPDATE ---
Update Note
Progress Note Update
This note serves as an addendum to the H&P by movie machine operator IKE Charlotte HARPER
HPI
74F DC'd yesterday( 07/27/24) fowing admission since 07/20/24 with P Dxs ACBLA due to UGIB s/p recent ERCP and sphincterotomy, just before DC'd DXed [facility] retured to ER with persistent melena and
worsening redness of left upper arm that is now streaking up near her shoulder
Vital Signs
Temp Pulse Resp BP Pulse Ox
97.6 F 79 18 123/87 98
07/28/24 14:33 07/28/24 14:33 07/28/24 14:33 07/28/24 14:33 07/28/24 14:33
PE
GENERAL: no apparent distress
HEENT: NC/AT no O2 requirements
HEART: RRR , +S1, +S2
LUNGS : clear to auscultation bilaterally
ABDOM: soft, minimal tenderness in midepigastric region, nondistended, + bowel sounds
EXT: eft arm sore to touch and swollen firm area with streaking lymphangeitis
NEUROLOGIC: grossly intact
Lab
07/26/24 07/26/24 07/27/24
06:39 17:30 06:17
WBC 12.9 H 11.2 H
Hgb 9.8 L 9.3 L
Creatinine 1.0 1.1 H
07/28/24
17:21
WBC Pending
Hgb Pending
Creatinine Pending
07/21/24 CT AP
- suspicious for a mild gastroenterocolitis.
- Moderate to large volume stool in the sigmoid colon and rectum suggesting a degree of constipation.
- Mild urinary bladder wall thickening. Recommend correlation with a urinalysis.
07/24/24 Peripheral vascular ultrasound Lt UEx
Thrombus formation of the left cephalic vein as described above.
07/22/24 EGD
- No gross lesions in the entire esophagus.
- Hematin (altered blood/ejlfbh-[id number]-wczd material) in the gastric body.
- Blood in the entire examined duodenum.
07/25/24 EGD
- Normal stomach. No blood.
- Erosion at the sphincterotomy site without stigmata of hemorrhage.
- No blood in duodenum.
- The examined portion of the jejunum was normal.
- No blood in examined portion of jejunum.
Last hospitalist admission: 07/20/24 - 07/27/24
Principal Discharge diagnosis :
Acute blood loss anemia secondary to upper GI bleed status post recent ERCP and sphincterotomy
Abnormal liver enzymes, likely transient status post ERCP
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
Superficial thrombophlebitis of left arm
Fever without signs of infection
ASSESSMENT & PLAN
Persistent melena: hemodynamically stable
Hgb low 9s upon DC'd ; Today Hgb is pending
Recent UGB presumed from Erosion at the sphincterotomy site
Associated ACBLA s/p 5 units pRBC
- T & S , blood consent
- IV PPI 40 BID
- Trend Hgb
- Clear
- GI consult
Superficial thrombophlebitis of left arm
suspect IV site infection with streaking cellulitis
- Empiric IV Cefazolin
- No need for systemic AC and also in view of recent UGIB
- warm compresses
Hepatocellular pattern transaminitis - trending down
Presumed transient s/p post ERCP
CT abdomen pelvis suggesting mild gastroenterocolitis-
- Doubt developing post ERCP pancreatitis - lipase only 472 and no abdominal pain
- cont statin
- Trend LFTs
Essential HTN
- on [employer] amlodipine
Hypothyroidism
- on [employer] levothyroxine
Newly diagnosed bladder cancer
- Supposed to have cystoscopy next week
Anxiety/depression
- on [employer] sertraline
DVT Px: SCD
Full code
IP MS
[2024-07-28] MEDS: ANCEF 5 IV (18:04)
[2024-07-28 18:09] LABS: % Basophils 0.4 % (0-2); % Eosinophils 1.7 % (0-6); % Immature Granulocytes 1.3 % (0-0.5); % Neutrophils 70.6 % (42.2-75.2); Absolute Basophils 0.1 10^3/uL (0-0.2); Absolute Eosinophils 0.2 10^3/uL (0-0.7); Absolute Immature Granulocytes 0.2 10^3/uL (0-0.05); Absolute Lymphocytes 1.7 10^3/uL (1.2-3.4); Absolute Monocytes 1.5 10^3/uL (0.1-0.6); Absolute Neutrophils 8.7 10^3/uL (1.4-6.5); Hematocrit 29.3 % (37.0-47.0); Hemoglobin 10.1 g/dL (12.0-16.0); Mean Corp Hgb Conc. 34.5 g/dL (33.0-37.0); Mean Corpuscular Hgb 31.1 pg (27.0-31.0); Mean Corpuscular Volume 90.2 fL (81.0-99.0); Mean Platelet Volume 9.8 fL (7.4-10.4); Nucleated Red Blood Cells % 0 %; Platelet Count 422 10^3/uL (130-400); Red Blood Cell Count 3.25 10^6/uL (4.20-5.40); Red Cell Dist. Width 14.2 % (11.5-14.5); White Blood Cell Count 12.3 10^3/uL (4.8-10.8)
[2024-07-28 18:23] LABS: ALT (SGPT) 25 U/L (0-35); AST (SGOT) 28 U/L (14-36); Albumin 3.4 g/dl (3.5-5.0); Alkaline Phosphatase 130 U/L (38-126); Blood Urea Nitrogen 12 mg/dl (7-17); Calcium 10.2 mg/dl (8.4-10.2); Carbon Dioxide 24 mmol/L (22-30); Chloride 105 mmol/L (98-107); Estimated Creatinine Clearance 44 ml/min; Glucose 98 mg/dl (70-99); Potassium 3.8 mmol/L (3.5-5.1); Sodium 137 mmol/L (135-145); Total Bilirubin 0.5 mg/dl (0.2-1.3); Total Protein 5.9 g/dl (6.3-8.2); eGFR > 60.00
[2024-07-28 20:12] VITALS: BP 169/85
[2024-07-28 20:15] VITALS: BMI 21.4
[2024-07-28 20:46] VITALS: BP 156/90; BP 164/88; BP 169/85; PULSE 102; PULSE 80; PULSE 88
[2024-07-28] MEDS: PROTONIX IV 40 MG IV (21:17)
[2024-07-28] MEDS: NSS (PRESERVATIVE FREE) 10 ML IV (21:17)
[2024-07-28] MEDS: LIPITOR 10 MG PO (21:20)
[2024-07-28] MEDS: ZOLOFT 50 MG PO (21:20)
--- NOTE | 2024-07-28 21:53 | PTCARENOTE ---
Receive pt from ER. Pt alert oriented X3, calm and cooperative, in no distress. Pt assist X1 to bed, feels slight dizziness with standing. Pt oriented to the room, call lopez within reach. Daughter at the bedside. Pt has a red LUE with tenderness,
but pt denies any pain. Positive radial pulse. RUE elevated on pillows. Pt denies chills or fever, T=99.2. RX=539/85, HR=80, DJ=361/85, SpO2=95% on RA. Pt reports that she had a black stool before coming to ER, but none since then. Pt advised to
call before getting OOB because of the dizziness. Will keep monitoring the pt.
[2024-07-28 23:47] VITALS: BP 153/70
[2024-07-29] MEDS: ANCEF 10 IV ×3 (02:05→17:26)
[2024-07-29 02:39] LABS: Glucose - Point of Care 106 mg/dl (70-99)
[2024-07-29 02:57] VITALS: BP 161/78
[2024-07-29] MEDS: TYLENOL 650 MG PO ×2 (03:48→17:26)
--- NOTE | 2024-07-29 04:19 | PTCARENOTE ---
After using the bathroom, pt complains of 'heavy chest', dizziness, and not feeling well. Pt did not have any BM since admission to the floor. EKG shows NSR. VSS (T=98.4, HR=72, RR=18, HQ=920/78, SpO2=98% on RA. Pt's blood yxkep=000. Couple minutes
later, pt states that she feels better, but has headache (5/10). Tylenol given for headache. Pt is sleeping at this time.
[2024-07-29 06:27] LABS: Hematocrit 27.2 % (37.0-47.0); Hemoglobin 9.2 g/dL (12.0-16.0); Mean Corp Hgb Conc. 33.8 g/dL (33.0-37.0); Mean Corpuscular Hgb 30.5 pg (27.0-31.0); Mean Corpuscular Volume 90.1 fL (81.0-99.0); Mean Platelet Volume 9.6 fL (7.4-10.4); Platelet Count 410 10^3/uL (130-400); Red Blood Cell Count 3.02 10^6/uL (4.20-5.40); Red Cell Dist. Width 14.2 % (11.5-14.5); White Blood Cell Count 9.5 10^3/uL (4.8-10.8)
[2024-07-29 06:57] LABS: Blood Urea Nitrogen 9 mg/dl (7-17); Carbon Dioxide 26 mmol/L (22-30); Chloride 107 mmol/L (98-107); Estimated Creatinine Clearance 40 ml/min; Glucose 98 mg/dl (70-99); Potassium 3.5 mmol/L (3.5-5.1); Sodium 139 mmol/L (135-145); eGFR 58.39
[2024-07-29 07:00] VITALS: BP 145/84; BP 149/77; BP 153/82; BP 160/85; PULSE 69; PULSE 72; PULSE 75
--- NOTE | 2024-07-29 07:17 | W.PN.HOSP.TC ---
Addendum entered and electronically signed by Kelli Burr MD 07/29/24 15:34:
I saw and evaluated the patient independently. I reviewed the resident�s note and agree with findings and plan as documented by Dr. Feliciano.
GENERAL: well developed, well nourished, female in no apparent distress
HEENT: NC/AT no O2 requirements
HEART: regular rate and rhythm, +S1, +S2
LUNGS : clear to auscultation bilaterally
ABDOM: soft, nontender, nondistended, + bowel sounds
EXT: no cyanosis, clubbing, or edema--left arm sore to touch and swollen firm area, red streaky--outlined in ED--appears improving
NEUROLOGIC: grossly intact
septic thrombophlebitis-- swollen/painful left arm with red streaks--US c/w superficial thrombophlebitis--warm compresses--cont IV ancef
recent Post ERCP upper GI bleed with acute anemia due to acute blood loss--s/p 5 units pRBC--tolerating diet--HGB stable compared to d/c HGB--apprec GI input, likely still passing old blood
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
Essential hypertension--Continue amlodipine
Hypothyroidism--Continue levothyroxine
Newly diagnosed bladder cancer--Supposed to have cystoscopy next week
Hypothyroidism--Continue levothyroxine
Hyperlipidemia--Hold statin
Anxiety/depression--Continue sertraline
DVT proph--SCDs
Code status--Full code
Original Note:
Today's Communication/Plan
-
Continue antibiotics
Assessment / Plan
Assessment / Plan
74 yo F with PMH suspected biliary stricture s/p ERCP 07/20, bladder cancer, HTN, and recent hospitalization for GI bleed/anemia and found to have superficial thrombophlebitis from IV site (sd'ed 07/27) who presented to ED 07/28 for worsening redness
of arm.
LUE septic thrombophlebitis vs cellulitis--IV Ancef started 07/28, will continue--
Recent upper GI bleed s/p ERCP/sphincterotomy requiring 5u prbs transfusion; 2 EGDs on recent hospitalization negative for signs of ongoing bleeding--continues to have melena. Hemoglobin stable compared to discharge on 07/27. May be passing old
blood products vs ongoing slow bleed from small intestines--GI was consulted previously--continue to monitor hemoglobin and stool output. She will need follow-up with GI outpatient.
Essential hypertension--continue home amlodipine
Hypothyroidism--continue home Synthroid
Recently diagnosed bladder cancer--follow-up with urology outpatient as previously planned, plans to have cystoscopy
Hyperlipidemia--continue home statin
Anxiety/depression--continue home sertraline, mood stable, denies SI
Code status: full
VTE ppx: SCDs, ambulation
Diet: regular
Dispo planning: anticipate discharge home
Anticipated Discharge: 24 - 48 hours
Subjective/Interval History
-
Date of Service: July 29, 2024
No acute events overnight. She reports slight improvement in the redness of her left arm. Her last BM was yesterday morning, and it was black/tarry. Review of systems negative-- denies dizziness, chest pain, shortness of breath, abdominal pain,
nausea, vomiting, diarrhea, constipation. Tolerating oral diet.
Objective Data
-
Labs:
Laboratory Results
07/29/24
06:10
WBC 9.5
Hgb 9.2 L
Hct 27.2 L
Plt Count 410 H
Sodium 139
Potassium 3.5
Chloride 107
Carbon Dioxide 26
BUN 9
Creatinine 1.0
Glucose 98
Calcium 10.0
07/25/24 16:39
Micro Blood Specimen
Resulted
Source
Blood/Venous
Procedure/Result
Blood Culture - Preliminary
���No Growth in 72 hours- Final report to follow
07/25/24 16:10
Micro Blood Specimen
Resulted
Source
Blood/Venous
Procedure/Result
Blood Culture - Preliminary
���No Growth in 72 hours- Final report to follow
Vital Signs:
Vital Signs
Temp Pulse Resp BP Pulse Ox
98.4 F 72 18 161/78 98
07/29/24 02:57 07/29/24 02:57 07/29/24 02:57 07/29/24 02:57 07/29/24 02:57
I&O
07/28/24 07/29/24 07/30/24
06:59 06:59 06:59
Intake Total 720 / 720
Balance 720 / 720
Review of Systems
-
History Source: Patient
All other systems: Reviewed and negative
Physical Exam
-
General: No Apparent Distress, Comfortable and Conversant; Negative Pain, Fever, Chills or Sweats
HEENT: Normocephalic, Atraumatic and Anicteric
Respiratory: Clear to Auscultation and Non Labored Respirations; Negative Wheezes or Rhonchi
Cardiac: Regular Rhythm and S1/S2
GI: Soft, Nontender, Nondistended and Normal Bowel Sounds
Rectal: Deferred by Provider
Musculoskeletal: No Clubbing, No Cyanosis, No Edema (No edema of lower extremities, right upper extremity), Edema, Left Upper Extrem and Other (LUE with erythema and induration predominantly localized to forearm. Streaking/extension of erythema
towards axilla is improved compared to the prior outlined area. No edema of hand.)
Skin: Warm and Dry
Neuro: Awake, Alert, Oriented and Nonfocal/Grossly Intact
Psych: Calm
Data Reviewed
-
Labs: Labs Reviewed by me
--- NOTE | 2024-07-29 07:23 | CON.ONC ---
Impression
Impression
Catheter associated thrombophlebitis and cellulitis of left antecubital region
Catheter associated thrombophlebitis of left cephalic vein
Melena/GI bleed
Plan
Plan
Agree with antibiotics. Patient has been started on cefazolin and already the cellulitis seems to be starting to improve. It has been approximately 12 hours since her first dose.
The thrombophlebitis is catheter associated and very low risk for embolization.
No role for anticoagulation especially with recent and potentially ongoing melena/GI bleeding. Anticoagulation actually would be contraindicated with recent and potential ongoing melena/GI bleeding.
Continue warm compresses and hopefully with antibiotics all of this will resolve.
Despite ongoing melena, her hemoglobin is stable and presumably GI who just completed a workup including an endoscopy earlier this week will not add any additional testing other than continued observation and follow-up of her Hgb. They have been
consulted and their consult is pending.
Hematology will sign off. Please contact us if you have additional questions
Patient History
History of Present Illness
CC:
1. Recurrent melena
2. Left UE redness with recent thrombophlebitis of the left cephalic vein at antecubital
History of Present Illness
74-year-old female discharged 02/26 presented again 02/27 with worsening of left upper extremities redness and streaking. Patient was recently hospitalized with GI bleed and had a left antecubital Hep-Lock catheter. While hospitalized, she was
diagnosed 07/24 with a left cephalic vein thrombus, and was encouraged to apply warm compresses. Patient reports that over the last 24 hours, her left arm became more swollen and red with streaking up her entire forearm towards her left upper arm
near her shoulder. Patient denies fevers and chills. She reports ongoing melena bloody stool. Patient denied any chest pain or short of breath. Overnight and starting IV antibiotics the redness has improved. Patient also has a relatively newly
diagnosed bladder cancer and is scheduled to have cystoscopy next week by urology.
Past-Medical/Surgical History
PMH: hypertension, hypothyroidism, anemia, ENA, C. difficile colitis, arthritis, hyperlipidemia, depression/anxiety, bladder cancer
PSH: Retinal surgery, section
SH: Denies tobacco or significant alcohol use.
FH: Noncontributory
Patient Medication
�Medication �Instructions �Recorded �Confirmed �Last Taken �Type
levothyroxine 88 mcg tablet 88 mcg PO MOTUWETHFRSA Thyroid 08/31/09 07/28/24 07/28/24 History
(Synthroid)
amlodipine 5 mg tablet 5 mg PO DAILY Blood Pressure 11/06/17 07/28/24 07/28/24 History
sertraline 50 mg tablet (Zoloft) 50 mg PO HS Mental Health/Anxiety 07/20/24 07/28/24 07/27/24 History
simvastatin 5 mg tablet 5 mg PO HS High Cholesterol 07/20/24 07/28/24 07/27/24 History
pantoprazole 40 mg tablet,delayed 40 mg PO BID Gastrointestinal 07/24/24 07/28/24 07/28/24 Rx
release issue #60 tabs
acetaminophen 325 mg tablet 650 mg (2 x 325 mg) PO Q6HPRN PRN 07/27/24 07/28/24 07/27/24 Rx
mild pain/headache #0 tabs
Active Medications
Generic Name Dose Route Start Last Admin
Trade Name Freq PRN Reason Stop Dose Admin
Acetaminophen 650 mg 07/29/24 03:02 07/29/24 03:48
Acetaminophen 325 Mg Tablet PO 08/26/24 03:01 650 mg
Q4HPRN PRN Administration
headache,mild pain,fever>100.4
Amlodipine Besylate 5 mg 07/29/24 08:00
Amlodipine 5 Mg Tablet PO 08/26/24 07:59
DAILY JAMISON
Atorvastatin Calcium 10 mg 07/28/24 22:00 07/28/24 21:20
Atorvastatin (Lipitor) 10 Mg Tablet PO 08/25/24 21:59 10 mg
HS JAMISON Administration
Cefazolin Sodium 2 grams in 10 mls @ 120 mls/hr 07/29/24 02:00 07/29/24 02:05
Ancef IV 10 mls
Q8H JAMISON Administration
Levothyroxine Sodium 88 mcg 07/29/24 08:00
Levothyroxine 88 Mcg Tablet PO 08/26/24 07:59
DAILY@0600 JAMISON
Pantoprazole Sodium 40 mg 07/28/24 20:04 07/28/24 21:17
Pantoprazole Sodium 40 Mg/10 Ml Vial IV 08/25/24 20:03 40 mg
BID JAMISON Administration
Sertraline HCl 50 mg 07/28/24 22:00 07/28/24 21:20
Sertraline 50 Mg Tablet PO 08/25/24 21:59 50 mg
HS JAMISON Administration
Sodium Chloride 0 flush 07/28/24 21:00
Sodium Chloride 0.9% (Flush) Syringe IV 08/25/24 20:59
PER PROTOCOL JAMISON
Sodium Chloride 10 ml 07/28/24 21:00 07/28/24 21:17
Sodium Chloride 0.9% (Preservative Free) 10 Ml Vial IV 08/25/24 20:59 10 ml
BID JAMISON Administration
Physical Exam
-
General: Well Developed, Well Nourished and No Apparent Distress
HEENT: Negative Jaundice
Cardiology: Normal Sinus Rhythm, S1 and S2
Pulmonary: Clear
Extremities: Phlebitic Signs (Erythema and cellulitis pattern in left upper extremity by antecubital fossa which appears improved both subjectively according to patient as well as based on the ink pattern)
Labs
Lab Results
WBC 9.5 10^3/uL (4.8-10.8) 07/29/24 06:10
RBC 3.02 10^6/uL (4.20-5.40) L 07/29/24 06:10
Hgb 9.2 g/dL (12.0-16.0) L 07/29/24 06:10
Hct 27.2 % (37.0-47.0) L 07/29/24 06:10
MCV 90.1 fL (81.0-99.0) 07/29/24 06:10
MCH 30.5 pg (27.0-31.0) 07/29/24 06:10
MCHC 33.8 g/dL (33.0-37.0) 07/29/24 06:10
RDW 14.2 % (11.5-14.5) 07/29/24 06:10
Plt Count 410 10^3/uL (130-400) H 07/29/24 06:10
MPV 9.6 fL (7.4-10.4) 07/29/24 06:10
Abs Immat Gran (auto) 0.2 10^3/uL (0-0.05) H 07/28/24 17:58
Absolute Neuts (auto) 8.7 10^3/uL (1.4-6.5) H 07/28/24 17:58
Absolute Lymphs (auto) 1.7 10^3/uL (1.2-3.4) 07/28/24 17:58
Absolute Monos (auto) 1.5 10^3/uL (0.1-0.6) H 07/28/24 17:58
Absolute Eos (auto) 0.2 10^3/uL (0-0.7) 07/28/24 17:58
Absolute Basos (auto) 0.1 10^3/uL (0-0.2) 07/28/24 17:58
Immature Gran % 1.3 % (0-0.5) H 07/28/24 17:58
Neutrophils % 70.6 % (42.2-75.2) 07/28/24 17:58
Lymphocytes % 14.0 % (20.5-51.1) L 07/28/24 17:58
Monocytes % 12.0 % (1.7-9.3) H 07/28/24 17:58
Eosinophils % 1.7 % (0-6) 07/28/24 17:58
Basophils % 0.4 % (0-2) 07/28/24 17:58
Creatinine 1.0 mg/dL (0.6-1.0) 07/29/24 06:10
Vital Signs
Vital Signs
Temp Pulse Resp BP Pulse Ox
98.4 F 72 18 161/78 98
07/29/24 02:57 07/29/24 02:57 07/29/24 02:57 07/29/24 02:57 07/29/24 02:57
--- NOTE | 2024-07-29 09:25 | W.PN.GI.CBS2 ---
Today's Communication / Plan
-
Please see assessment and plan for details.
Assessment / Plan
-
1. Melena: With significant bleeding status post ERCP with sphincterotomy and bile duct biopsy, though only had 1 bowel movement in 2 days yesterday morning, has not had any bowel movement since yesterday, hemoglobin is where it was on discharge,
and BUN is normal. Doubt significant postsphincterotomy bleeding this far out or hemobilia from bile duct biopsy. At this point will advance diet, continue PPI and observation. Will hold on endoscopy for now pending clinical course.
Subjective
Subjective
Date of Service: July 29, 2024
Call back to see patient about melenic stool yesterday. Patient was recently admitted for prolonged stay, please see initial consult for details, underwent ERCP with spyglass for abnormal MRI, which was essentially normal except for some mild
possible nodularity. Sphincterotomy is performed and spy bite of possible nodularity was also done. Pathology of which was negative for inflammation or malignancy. After ERCP she had episodes of melena and had 2 endoscopies with some blood in the
second portion of duodenum though no obvious brisk bleeding. Patient remained stable and was discharged, though returns now with worsening left arm pain. She states that since discharge she only had 1 stool, yesterday morning, which was dark. She
has had none overnight or this morning. She denies any abdominal pain, nausea or vomiting.
Objective
Data Reviewed
Laboratory Data:
Laboratory Results
07/29/24 06:10
07/29/24 06:10
Laboratory Results
Total Bilirubin 0.5 mg/dl (0.2-1.3) 07/28/24 17:58
AST 28 U/L (14-36) 07/28/24 17:58
ALT 25 U/L (0-35) 07/28/24 17:58
Alkaline Phosphatase 130 U/L (38-126) H 07/28/24 17:58
Vital Signs and I&O:
Vital Signs
Temp Pulse Resp BP Pulse Ox
98.4 F 70 18 149/77 99
07/29/24 07:00 07/29/24 07:00 07/29/24 07:00 07/29/24 07:00 07/29/24 07:00
I&O
07/28/24 07/29/24 07/30/24
06:59 06:59 06:59
Intake Total 720 / 720
Balance 720 / 720
Physical Exam
Physical Exam
General: NAD
Abdomen: normal bowel sounds, soft, no tenderness, no masses or bruits, no ascites
[2024-07-29] MEDS: PROTONIX IV 40 MG IV ×2 (09:57→21:03)
[2024-07-29] MEDS: NORVASC 5 MG PO (09:59)
[2024-07-29] MEDS: NSS (PRESERVATIVE FREE) 10 ML IV ×2 (09:59→21:03)
[2024-07-29] MEDS: FLUSH (NSS) 2 FLUSH IV (09:59)
[2024-07-29 11:00] VITALS: BP 123/87; BP 156/73; BP 159/79; PULSE 66; PULSE 75; PULSE 83
[2024-07-29] MEDS: SYNTHROID PO (11:16)
--- NOTE | 2024-07-29 12:49 | CM ---
Patient see bedside w/ family, initial assessment completed. Patient is a 74-year-old female with past medical history for hypertension, hypothyroidism, anemia, ENA, C. difficile colitis presented to us with l worsening of lower extremities redness.
Patient reports that she resides w/ spouse in a 2STH- 1 step to enter the home. Patient is independent w/ ambulating, no device required. Patient is independent w/ ADLs. No DME identified. Denies SNF/HC hx reported. Patient engaged in OP therapy in
the past. No current OP or home services at this time. Patient is due to have a hospital bed delivered to her home tomorrow.
Address, point of contact and insurance verified
PCP: Kamran Zhao
Pharmacy: [facility]
Plan: Anticipate home; no needs
--- NOTE | 2024-07-29 13:00 | PTCARENOTE ---
Pt had a drop in BP from sitting to standing with orthostatic BPs that were done around 1200. Her BP was 159/79 (sitting) to 123/87 (standing). The pt stated that she did feel dizzy but she said that the dizziness has been on going even when she was
at home when she makes changes in position. Within a few seconds, the dizziness fades, per pt. Made Dr. Burr and Dr. Yolanda Feliciano (resident) aware, will monitor.
--- NOTE | 2024-07-29 14:02 | VATNOTE ---
VAT rounds: discussed with pt order for 2 large bore IVs. Pt declined 2nd IV site at this time. Pt educated about the rationale for 2 large bore IVs in the context of pt's medical condition. Pt states she would not like a second IV site at this
time. Verbalized understanding of risks.
[2024-07-29 15:00] VITALS: BP 142/83; BP 147/70; BP 147/82; PULSE 70; PULSE 79; PULSE 88
[2024-07-29 19:48] VITALS: BP 129/70; BP 140/75; BP 141/80; PULSE 77; PULSE 80; PULSE 81
[2024-07-29] MEDS: ZOLOFT 50 MG PO (21:03)
[2024-07-29] MEDS: LIPITOR 10 MG PO (21:03)
[2024-07-29 23:45] VITALS: BP 144/73
[2024-07-30] MEDS: ANCEF 10 IV ×3 (01:27→17:42)
[2024-07-30] MEDS: SYNTHROID 88 MCG PO (05:01)
--- NOTE | 2024-07-30 06:17 | W.PN.GI.CBS2 ---
Today's Communication / Plan
-
Please see assessment and plan for details.
Assessment / Plan
-
1. Melena: With significant bleeding status post ERCP with sphincterotomy and bile duct biopsy, though only had 1 bowel movement in the last few days, none yesterday, hemoglobin at level from discharge. Doubt significant postsphincterotomy
bleeding this far out or hemobilia from bile duct biopsy. Will continue PPI and observation for now.
Subjective
Subjective
Date of Service: July 30, 2024
Patient feeling okay, still some left upper arm discomfort, though redness has improved. No bowel movements yesterday afternoon or overnight, tolerated diet without difficulty.
Objective
Data Reviewed
Laboratory Data:
Laboratory Results
07/29/24 06:10
07/29/24 06:10
Laboratory Results
Total Bilirubin 0.5 mg/dl (0.2-1.3) 07/28/24 17:58
AST 28 U/L (14-36) 07/28/24 17:58
ALT 25 U/L (0-35) 07/28/24 17:58
Alkaline Phosphatase 130 U/L (38-126) H 07/28/24 17:58
Vital Signs and I&O:
Vital Signs
Temp Pulse Resp BP Pulse Ox
98.8 F 70 17 144/73 96
07/29/24 23:45 07/29/24 23:45 07/29/24 23:45 07/29/24 23:45 07/29/24 23:45
I&O
07/28/24 07/29/24 07/30/24
06:59 06:59 06:59
Intake Total 720 / 720 840 / 840
Balance 720 / 720 840 / 840
Physical Exam
Physical Exam
General: NAD
Abdomen: normal bowel sounds, soft, no tenderness, no masses or bruits, no ascites
[2024-07-30 08:04] VITALS: BP 146/80
[2024-07-30 08:24] LABS: Hematocrit 30.1 % (37.0-47.0); Hemoglobin 10.3 g/dL (12.0-16.0); Mean Corp Hgb Conc. 34.2 g/dL (33.0-37.0); Mean Corpuscular Hgb 30.9 pg (27.0-31.0); Mean Corpuscular Volume 90.4 fL (81.0-99.0); Mean Platelet Volume 10.1 fL (7.4-10.4); Platelet Count 531 10^3/uL (130-400); Red Blood Cell Count 3.33 10^6/uL (4.20-5.40); Red Cell Dist. Width 14.1 % (11.5-14.5); White Blood Cell Count 8.6 10^3/uL (4.8-10.8)
[2024-07-30] MEDS: PROTONIX IV 40 MG IV ×2 (08:27→20:14)
[2024-07-30] MEDS: NORVASC 5 MG PO (08:27)
[2024-07-30] MEDS: NSS (PRESERVATIVE FREE) 10 ML IV ×2 (08:27→20:14)
--- NOTE | 2024-07-30 08:32 | W.PN.UPDATE ---
Update Note
Progress Note Update
Morning labs noted, hemoglobin stable, overall improved, no gross bleeding. Will hold on further GI workup for now.
Will sign off for now, please go back with any further questions.
--- NOTE | 2024-07-30 08:53 | W.PN.HOSP.TC ---
Addendum entered and electronically signed by Sarbjit Larsen MD 07/30/24 16:08:
Seen and examined by me independently in collaboration with the director biomedical engineering Dr. Feliciano.
Lab data and imaging data reviewed.
Addendum as below :
Left, acute thrombophlebitis involving the left cephalic vein in the forearm and the cephalic vein in the anterior cubital fossa. Patient still symptomatic with pain and tenderness which is inquisitive and also saying more prominence of the
swelling in the cubital fossa. Palpable vein from distal cephalic vein all the way up to the elbow. Very tender to touch. Surrounding redness noted. Currently on IV antibiotics.
Repeat ultrasound to see if any progression. Consult ID for choices of antibiotics.
Discussed with daughter at bedside
Total time spent on today's encounter was 52 minutes which included time spent in counseling the patient/family regarding diagnosis and treatment plan as listed above, goals of care, and symptom management. Case was discussed with nursing staff,
specialists, and care coordinators/case management. All labs and imaging personally reviewed by me. Remainder the time spent in detailed review of previous records, lab data, imaging, and other medical provider documentation.
Original Note:
Today's Communication/Plan
-
Continue antibiotics, consult ID
Assessment / Plan
Assessment / Plan
74 yo F with PMH suspected biliary stricture s/p ERCP 07/20, bladder cancer, HTN, and recent hospitalization for GI bleed/anemia and found to have superficial thrombophlebitis from IV site ([facility]) who presented to ED 07/28 for worsening redness
of arm.
LUE septic thrombophlebitis--US 07/24 showed superficial thrombophlebitis, then developed erythema/streaking at home--IV Ancef started 07/28, will continue for now. Consult ID, appreciate recs--supportive measures, warm compresses, elevation. No role
for anticoagulation at this time, given superficial vein and recent GI bleed.
Recent upper GI bleed s/p ERCP/sphincterotomy requiring 5u prbs transfusion; 2 EGDs on recent hospitalization negative for signs of ongoing bleeding--continued to have melena at home, which may be passing old blood products vs ongoing slow bleed
from small intestines--GI was consulted previously-- Hemoglobin remains stable with no evidence of ongoing active bleed. She will need follow-up with GI outpatient.
Thrombocytosis--likely reactive secondary to infection vs anemia. Trend CBC.
Essential hypertension--continue home amlodipine
Hypothyroidism--continue home Synthroid
Recently diagnosed bladder cancer--follow-up with urology outpatient as previously planned, plans to have cystoscopy, consider delaying procedure while treating septic thrombophlebitis but will defer to her urologist
Hyperlipidemia--continue home statin
Anxiety/depression--continue home sertraline, mood stable, denies SI
Code status: full
VTE ppx: SCDs, ambulation
Diet: regular
Dispo planning: antipate discharge home when able
Anticipated Discharge: 24 - 48 hours
Subjective/Interval History
-
Date of Service: July 30, 2024
No acute events overnight. Reports improvement in left arm redness. Review of systems negative-- denies fever/chills, dizziness, chest pain, shortness of breath, abdominal pain, nausea, vomiting, diarrhea, constipation. She has not had any BM
since prior to this admission. Tolerating oral diet, ambulating as tolerated.
Objective Data
-
Labs:
Laboratory Results
07/30/24
07:08
WBC 8.6
Hgb 10.3 L
Hct 30.1 L
Plt Count 531 H D
07/25/24 16:39
Micro Blood Specimen
Resulted
Source
Blood/Venous
�
Procedure/Result
Blood Culture - Preliminary
���No Growth in 4 days- Final report to follow
07/25/24 16:10
Micro Blood Specimen
Resulted
Source
Blood/Venous
�
Procedure/Result
Blood Culture - Preliminary
���No Growth in 4 days- Final report to follow
Vital Signs:
Vital Signs
Temp Pulse Resp BP Pulse Ox
98.2 F 68 18 146/80 100
07/30/24 08:04 07/30/24 08:04 07/30/24 08:04 07/30/24 08:04 07/30/24 08:04
I&O
07/29/24 07/30/24 07/31/24
06:59 06:59 06:59
Intake Total 720 / 720 840 / 840
Balance 720 / 720 840 / 840
Review of Systems
-
History Source: Patient
All other systems: Reviewed and negative
Physical Exam
-
General: No Apparent Distress, Comfortable and Conversant; Negative Pain, Fever, Chills or Sweats
HEENT: Normocephalic, Atraumatic and Anicteric
Respiratory: Clear to Auscultation and Non Labored Respirations; Negative Wheezes or Rhonchi
Cardiac: Regular Rhythm and S1/S2
GI: Soft, Nontender, Nondistended and Normal Bowel Sounds
Rectal: Deferred by Provider
Musculoskeletal: No Clubbing, No Cyanosis, No Edema and Other (LUE with erythema and induration predominantly localized to forearm, significantly improved from yesterday. Palpable cord. Streaking/extension of erythema towards axilla is improved
compared to the prior outlined area. No edema of hand.)
Skin: Warm and Dry
Neuro: Awake, Alert, Oriented and Nonfocal/Grossly Intact
Psych: Calm
Data Reviewed
-
Labs: Labs Reviewed by me
--- NOTE | 2024-07-30 15:28 | CON.ID ---
Consultation
-
Date/Time Consultation Requested: 07/30/2024 1140
Date/Time Consultation Performed: 07/30/2024 1500
Requesting Provider: Dr. Feliciano
Performing Provider: Dr. Hooper
Reason for Consultation: Left upper extremity cellulitis
Chief Complaint / Past History
History of Present Illness
Umu Masterson is a 74-year-old female being evaluated at the request of Dr. Feliciano regarding left upper extremity cellulitis/thrombophlebitis history is obtained from chart review, along with patient interview.
The patient has a significant past medical history of bladder cancer, as well as a history of high-grade intrahepatic biliary stricture. Patient underwent ERCP on 07/20 to further workup irregular contours of her intrahepatic bile duct and to
address high-grade stricture therein. She reportedly did well immediately following the procedure, but the next day woke up and did not feel well. She was advised to come to the emergency room by her Folder Machine, and while in triage
experienced coffee-ground emesis. She was admitted and further evaluated by Gastroenterology with endoscopy. On 07/25 she underwent small bowel enteroscopy in the afternoon. Thereafter, she developed a fever at 1726, which continued through the
evening. She subsequently was found to have a left upper extremity thrombus. She was discharged to home where she used a heating pad. 2 days ago she noted a increasing erythematous area down her left forearm, and she was advised by her PCP to
come back to the hospital for further evaluation.
Prior to admission she denied any fevers or chills. She denied any significant axillaries pain or swelling. At this time, she notes discomfort in the antecubital area, and down her forearm.
Past History
Additional Past Medical History:
Bladder CA
TIA
HTN
Hypothyroidism
Remote history of C. difficile
Additional Past Surgical History:
Allergy History:
propoxyphene HCl [From Darvon] Allergy (Mild, Verified 07/28/24 14:33)
numbness in hand and feet
Medications Reviewed: Yes
Current Antibiotics:
Zosyn
Social History
Tobacco: Non-Smoker
Alcohol: Occasional
Drug: None
Living: With Family
Employment: Employed
Family History
Family History: Not Pertinent
Review of Systems
Vital Signs
Temp Pulse Resp BP Pulse Ox
98.2 F 68 18 146/80 100
07/30/24 08:04 07/30/24 08:04 07/30/24 08:04 07/30/24 08:04 07/30/24 08:20
Physical Exam
Physical Exam
Constitutional: No Acute Distress, Comfortable and Non-toxic
Head: Normocephalic
Eyes: Pupils Equal, Pupils Round, No Conjunctival Hemorrhage and Sclera Anicteric
Oral: No Thrush and No Ulcers
Cardiovascular: Regular Rate and S1/S2; Negative S3/S4
Pulmonary: Clear; Negative Wheezes, Rales or Rhonchi
Gastrointestinal: Soft, Non Tender, Non Distended and Normal Bowel Sounds
Extremities: Edema (LUE) and Erythema (Left antecubital area and tracking down the radial portion of the forearm.)
Skin: Warm and Dry
Neurological: Awake and Alert
Psychological: Calm
.
Lab / Diagnostic Study Results
07/30/24 07:08
07/29/24 06:10
Abs Immat Gran (auto) 0.2 10^3/uL (0-0.05) H 07/28/24 17:58
Absolute Neuts (auto) 8.7 10^3/uL (1.4-6.5) H 07/28/24 17:58
Absolute Lymphs (auto) 1.7 10^3/uL (1.2-3.4) 07/28/24 17:58
Absolute Monos (auto) 1.5 10^3/uL (0.1-0.6) H 07/28/24 17:58
Absolute Basos (auto) 0.1 10^3/uL (0-0.2) 07/28/24 17:58
Immature Gran % 1.3 % (0-0.5) H 07/28/24 17:58
Neutrophils % 70.6 % (42.2-75.2) 07/28/24 17:58
Lymphocytes % 14.0 % (20.5-51.1) L 07/28/24 17:58
Monocytes % 12.0 % (1.7-9.3) H 07/28/24 17:58
Eosinophils % 1.7 % (0-6) 07/28/24 17:58
Basophils % 0.4 % (0-2) 07/28/24 17:58
Microbiology Results
Micro:
07/25/24 16:39 Blood Culture - Pending
Blood/Venous
07/25/24 16:10 Blood Culture - Pending
Blood/Venous
Imaging:
07/30/2024 Duplex ultrasound left upper extremity: Pending
07/24/2024 Duplex ultrasound left upper extremity: There is an intraluminal echogenicity in the cephalic vein at antecubital fossa and throughout the entire forearm. The basilic vein in the forearm is patent. Please see full dictation for
additional detail.
Assessment / Plan
Left upper extremity pain/swelling
Known left cephalic vein thrombus
Suspected left upper extremity cellulitis
Bladder CA
TIA
HTN
Hypothyroidism
Remote history of C. difficile
Recommendations:
At present, it is difficult to delineate whether the left upper extremity erythema is secondary to thrombophlebitis alone, or if there is a component of cellulitis.
Continue with cephalexin for the present.
Await duplex ultrasound results.
K-pad to the area.
Left upper extremity elevation.
Follow-up for improvement.
[2024-07-30 16:06] VITALS: BP 149/73
[2024-07-30] MEDS: LIPITOR 10 MG PO (20:14)
[2024-07-30] MEDS: ZOLOFT 50 MG PO (20:14)
[2024-07-30 22:26] VITALS: BP 157/73
[2024-07-31] MEDS: ANCEF 10 IV ×2 (02:16→10:05)
[2024-07-31] MEDS: TYLENOL 650 MG PO (02:23)
[2024-07-31] MEDS: SYNTHROID 88 MCG PO (05:55)
[2024-07-31 07:35] VITALS: BP 149/79
[2024-07-31] MEDS: NSS (PRESERVATIVE FREE) 10 ML IV (09:04)
[2024-07-31] MEDS: NORVASC 5 MG PO (09:04)
[2024-07-31] MEDS: PROTONIX IV 40 MG IV (09:07)
[2024-07-31 09:20] LABS: Hematocrit 30.8 % (37.0-47.0); Hemoglobin 10.4 g/dL (12.0-16.0); Mean Corp Hgb Conc. 33.8 g/dL (33.0-37.0); Mean Corpuscular Hgb 30.7 pg (27.0-31.0); Mean Corpuscular Volume 90.9 fL (81.0-99.0); Mean Platelet Volume 11.1 fL (7.4-10.4); Platelet Count 398 10^3/uL (130-400); Red Blood Cell Count 3.39 10^6/uL (4.20-5.40); Red Cell Dist. Width 14.2 % (11.5-14.5); White Blood Cell Count 6.9 10^3/uL (4.8-10.8)
--- NOTE | 2024-07-31 09:46 | CM ---
Received consult for VN. Met with patient who stated that VN services through were arranged and before they had a chance to come out, she was back inpatient. She did confirm that she would like them again at discharge. [facility] liason updated. New
referral will be sent. Patient agrees with PT that she does not need SNF.
Plan: Case management will continue to follow and assist with discharge planning. Home with VN.
[2024-07-31 09:55] LABS: ALT (SGPT) 17 U/L (0-35); AST (SGOT) 46 U/L (14-36); Albumin 3.3 g/dl (3.5-5.0); Alkaline Phosphatase 114 U/L (38-126); Blood Urea Nitrogen 15 mg/dl (7-17); Calcium 10.3 mg/dl (8.4-10.2); Carbon Dioxide 27 mmol/L (22-30); Chloride 106 mmol/L (98-107); Direct Bilirubin 0.2 mg/dl (0.0-0.4); Estimated Creatinine Clearance 40 ml/min; Glucose 96 mg/dl (70-99); Potassium 3.6 mmol/L (3.5-5.1); Sodium 141 mmol/L (135-145); Total Bilirubin 0.4 mg/dl (0.2-1.3); Total Protein 5.9 g/dl (6.3-8.2); eGFR 58.39
[2024-07-31 10:20] VITALS: BP 135/84; PULSE 72; O2SAT 98
--- NOTE | 2024-07-31 11:08 | W.PN.HOSP.TC ---
Addendum entered and electronically signed by Yolanda Feliciano MD, Resident 07/31/24 17:39:
~1700: Updated patient, discussed plan for discharge with oral antibiotics. Patient feels well, highly agreeable, she will follow-up with PCP/GI/urologist as discussed. She has no further questions at this time.
Addendum entered and electronically signed by Sarbjit Larsen MD 07/31/24 14:25:
Seen and examined by me independently in collaboration with the certified medical aide.
Lab data and imaging data reviewed.
Addendum as below :
Patient feels clinically improved with less pain from her left forearm. No fever chills.
Clinically improved and redness over the left lateral forearm. Less tender over the course of left cephalic vein in the forearm.
Repeat ultrasound shows persistent of the thrombus in the cephalic vein without progression.
Appreciate ID input.
Continue with IV antibiotics per ID.
Original Note:
Today's Communication/Plan
-
When able plan for discharge home with home health; timing tbd pending ID recs
Assessment / Plan
Assessment / Plan
74 yo F with PMH suspected biliary stricture s/p ERCP 07/20, bladder cancer, HTN, and recent hospitalization for GI bleed/anemia and found to have superficial thrombophlebitis from IV site (ca'ed 07/27) who presented to ED 07/28 for worsening redness
of arm.
LUE septic thrombophlebitis--US 07/24 showed superficial thrombophlebitis, then developed erythema/streaking at home--IV cefazolin started 07/28, will continue for now. Apprec ID--supportive measures, warm compresses, elevation. No role for
anticoagulation at this time, given superficial vein and recent GI bleed.-- consider discharge home with continued antibiotics, defer to ID
Recent upper GI bleed s/p ERCP/sphincterotomy requiring 5u prbs transfusion; 2 EGDs on recent hospitalization negative for signs of ongoing bleeding--continues to have melena, which may be passing old blood products vs ongoing slow upper GI
bleed--GI was consulted previously-- Hemoglobin remains stable with no evidence of ongoing active bleed. She will need follow-up with GI outpatient.
Thrombocytosis--likely reactive secondary to infection vs anemia. Resolved.
Essential hypertension--continue home amlodipine
Hypothyroidism--continue home Synthroid
Recently diagnosed bladder cancer--follow-up with urology outpatient as previously planned, plans to have cystoscopy, consider delaying procedure while treating septic thrombophlebitis but will defer to her urologist. She knows to call urologist to
discuss.
Hyperlipidemia--continue home statin
Anxiety/depression--continue home sertraline, mood stable, denies SI
Daughter Yolanda updated at bedside
Code status: full
VTE ppx: SCDs, ambulation
Diet: regular
Dispo planning: discharge home when able, with home health
Anticipated Discharge: Within 24 hours
Subjective/Interval History
-
Date of Service: July 31, 2024
No acute events overnight. Reports improvement in pain/redness of left forearm. Review of systems negative-- denies fever/chills, dizziness, chest pain, shortness of breath, abdominal pain, nausea, vomiting, diarrhea, constipation. Had loose
black BM yesterday, no lightheadedness or bright red blood per rectum. Tolerating oral diet, ambulating as tolerated.
Objective Data
-
Labs:
Laboratory Results
07/31/24
08:02
WBC 6.9
Hgb 10.4 L
Hct 30.8 L
Plt Count 398 D
Sodium 141
Potassium 3.6
Chloride 106
Carbon Dioxide 27
BUN 15
Creatinine 1.0
Glucose 96
Calcium 10.3 H
Total Bilirubin 0.4
AST 46 H
ALT 17
Alkaline Phosphatase 114
DATE
TYPE
STATUS
REF RANGE/AUTHOR
07/25/24 16:39
Micro Blood Specimen
Complete
Source
Blood/Venous
�
Procedure/Result
Blood Culture - Final
���No Growth - Final Report
07/25/24 16:10
Micro Blood Specimen
Complete
Source
Blood/Venous
�
Procedure/Result
Blood Culture - Final
���No Growth - Final Report
Vital Signs:
Vital Signs
Temp Pulse Resp BP Pulse Ox
98.1 F 67 18 149/79 99
07/31/24 07:35 07/31/24 09:04 07/31/24 07:35 07/31/24 09:04 07/31/24 09:00
I&O
07/30/24 07/31/24 08/01/24
06:59 06:59 06:59
Intake Total 840 / 840 480 / 480
Balance 840 / 840 480 / 480
Review of Systems
-
History Source: Patient
All other systems: Reviewed and negative
Physical Exam
-
General: No Apparent Distress, Comfortable and Conversant; Negative Pain, Fever, Chills or Sweats
HEENT: Normocephalic, Atraumatic and Anicteric
Respiratory: Clear to Auscultation and Non Labored Respirations; Negative Wheezes or Rhonchi
Cardiac: Regular Rhythm and S1/S2
GI: Soft, Nontender, Nondistended and Normal Bowel Sounds
Rectal: Deferred by Provider
Musculoskeletal: No Clubbing, No Cyanosis, No Edema and Other (LUE with erythema and induration predominantly localized to forearm, significantly improved from yesterday. Palpable cord. Streaking/extension of erythema towards axilla resolved. No
edema of hand.)
Skin: Warm and Dry
Neuro: Awake, Alert, Oriented and Nonfocal/Grossly Intact
Psych: Calm
Data Reviewed
-
Ultrasound: Report Reviewed by me
Labs: Labs Reviewed by me and Discussed with Patient
--- NOTE | 2024-07-31 11:37 | CM ---
Received referral for VN. Spoke with patient who stated that she would like resumption of care, even though she did not get a chance to work with them as she was home only for two days. Referral made to [facility] liason.
Plan: Case management will continue to follow and assist with discharge planning. Home with VN when medically cleared.
--- NOTE | 2024-07-31 11:45 | VATNOTE ---
Vat rounds : Left arm continues with pain. Warm compress continues. Will continue to monitor closely.
--- NOTE | 2024-07-31 13:07 | VNURNOTE ---
Credit Collections Clerk met with patient to discuss [facility] nurse/therapy, visits, schedule and homebound status. Patient is agreeable and understands that visits at home will be 2-3 x per week to assess and teach medical management.
[facility] contact information provided. Patient is aware that [facility] will contact them for start of care after discharge from .
[facility] referral completed in [facility].
[2024-07-31 15:21] VITALS: BP 148/71
--- NOTE | 2024-07-31 15:27 | W.PN.ID1 ---
Date of Service
Date of Service: July 31, 2024
Today's Communication
Continue antibiotics. See below�
Assessment / Plan
Left upper extremity pain/swelling
Known left cephalic vein thrombus
Suspected left upper extremity cellulitis
Bladder CA
TIA
HTN
Hypothyroidism
Remote history of C. difficile
Recommendations:
At present, it is difficult to delineate whether the left upper extremity erythema is secondary to thrombophlebitis alone, or if there is a component of cellulitis.
Continue with cefazolin while inpatient, but upon discharge can transition to oral cephalexin 500 mg 4 times daily, to continue through 08/06
K-pad/heating pad to the area every 3 hours for approximately 20 minutes while awake.
Left upper extremity elevation.
Follow for continued improvement.
����������������������������������������������������������
Chief Complaint
-: Other (Left upper extremity thrombophlebitis)
Subjective / Review of Systems
Patient seen and examined. Reports left arm is feeling improved. She has noted decreased erythema of the forearm.
Review of Systems: No Fever and No Chills
Vital Signs / Physical Exam
Vital Signs
Vital Signs
Temp Pulse Resp BP Pulse Ox
98.5 F 70 18 148/71 90
07/31/24 15:21 07/31/24 15:21 07/31/24 15:21 07/31/24 15:21 07/31/24 15:21
Physical Exam
Constitutional: No Acute Distress, Comfortable and Non-toxic
Eyes: Sclera Anicteric
Pulmonary: Non Labored
Gastrointestinal: Non Distended
Skin: Other (Cord noted along the radial aspect of the left forearm. Overall erythema has decreased. No fluctuant areas noted from wrist to antecubital area.)
Neurological: Awake and Alert
Psychological: Calm
Objective Data
Lab Data
Lab Results
07/31/24 08:02
07/31/24 08:02
Estimated Creat Clear 40 ml/min 07/31/24 08:02
Total Bilirubin 0.4 mg/dl (0.2-1.3) 07/31/24 08:02
AST 46 U/L (14-36) H 07/31/24 08:02
ALT 17 U/L (0-35) 07/31/24 08:02
Alkaline Phosphatase 114 U/L (38-126) 07/31/24 08:02
Most recent labs reviewed.
Imaging:
07/30/2024 Duplex ultrasound left upper extremity: Stable left cephalic vein thrombus. No findings to suggest DVT of the left upper extremity.
07/24/2024 Duplex ultrasound left upper extremity: There is an intraluminal echogenicity in the cephalic vein at antecubital fossa and throughout the entire forearm. The basilic vein in the forearm is patent. Please see full dictation for
additional detail.
Care Review
Plan reviewed with: Physician (Resident)
[2024-07-31] MEDS: ANCEF IV (18:16)
--- NOTE | 2024-07-31 18:50 | W.DCSUMMARY ---
Discharge Summary
Discharge Data
Date of Admission: 07/28/24
Date of Discharge: 07/31/24
-
Pending Results: No
Hospital Course
CC PCP ROSEANN ZHAO
CC UROLOGIST NAYLA AMBROCIO
Discharging Physician : Dr. Feliciano/Dr. Larsen
Disposition : Home with home health
Primary care physician : Roseann Zhao
Principal Discharge diagnosis :
Left upper extremity superficial thrombophlebitis (cephalic vein) and cellulitis
Chronic Discharge diagnosis :
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
Anemia secondary to acute blood loss status post ERCP/sphincterotomy
Melena
Essential hypertension
Hypothyroidism
Hyperlipidemia
Anxiety/depression
Recently diagnosed bladder cancer
Hospital Course :
Presented to hospital for worsening left upper extremity pain, redness, swelling. One day prior, she was discharged from after admission for upper GI bleed and acute anemia status post ERCP/sphincterotomy; during that hospitalization, she was
found to have superficial thrombophlebitis and transient fever with no other infectious signs with negative blood cultures (please see separate discharge summary from 07/27). During the current hospitalization 07/28-07/31, she was found to have
cellulitis overlying the existing thrombophlebitis, which was treated with IV antibiotics and supportive measures. ID was consulted for the acute infection; GI and hematology were consulted for her melena and anemia, both of which remained stable.
Ultrasound showed no extension of the superficial thrombophlebitis, her arm improved significantly, her other conditions remained stable. On day of discharge she was stable. She will continue oral antibiotics, and follow-up with PCP/GI/urology as
previously planned.
Important imaging findings :
Peripheral vascular ultrasound 07/30/2024
FINDINGS: Occlusive thrombus is seen in the left cephalic vein in the antecubital fossa and forearm, stable from recent prior study.
There is no thrombus seen in the left internal jugular, subclavian, axillary, basilic and brachial veins.
IMPRESSION:
Left cephalic vein thrombus (superficial venous system), stable.
No findings to suggest deep venous thrombosis of the left lower extremity.
Procedure findings :
N/A
Discharge Plan
-
Patient Disposition: Home with Home Care
Discharge Diagnosis/Procedures: Left upper extremity superficial thrombophlebitis (cephalic vein) and cellulitis
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
Anemia secondary to acute blood loss status post ERCP/sphincterotomy
Melena
Essential hypertension
Hypothyroidism
Hyperlipidemia
Anxiety/depression
Recently diagnosed bladder cancer
Condition: Good
Diet: As tolerated and Regular
Activity: As tolerated, With Walker and No strenuous activity
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
Driving Restrictions: No driving for 24 hours
Bathing Restrictions: OK to Shower
Blood Work: Repeat CBC and CMP in 1 week with Primary Care or GI
Other Services: VN, PT and OT
Activity Restrictions/Additional Instructions:
Continue to use warm compresses and keep left arm elevated when resting. Apply heating pad to the area every 3 hours for approximately 20 minutes while awake. You can use acetaminophen if needed for the pain. Avoid ibuprofen, naproxen, and other
NSAIDs because of your recent GI bleed.
Return to the emergency room or call your doctor if you have any of the following:
increase in bloody bowel movements
vomit that looks like coffee grounds or bloody
feeling lightheaded or dizzy, short of breath, palpitations, worsening weakness
feeling generally ill or have a fever (temp 100.4 F or higher)
worsening pain/redness/swelling of your arm
Follow up with your Primary Care within 1 week of hospital discharge.
Follow up with GI in 6-8 weeks.
Call your Urology office to let them know about your recent hospitalization and that you are on antibiotics. They may reschedule your cystoscopy. You should schedule an appointment with them to review the questions you have about further
evaluation of your bladder.
Instructions: Phlebitis (DC), Preventing falls in adults, BLOOD PRESSURE
Referrals:
Roseann Zhao, DO [Family Provider] - in less than 1 week (Call your Primary Care Provider to schedule follow up appointment within 1 week of hospitalization.)
Nannette Machado, DO [Active] - in one to two months (Call the gastroenterology (GI) office to arrange follow up with Dr. Machado or IKE 6-8 weeks)
Additional Discharge Medication Instructions: New medications:
CEPHALEXIN (500mg)- Take 1 capsule four times per day through 08/06/24
For medication questions or refills, please call your Primary Care.
Prescriptions:
New
cephalexin 500 mg capsule
500 mg PO QID 7 Days Qty: 28 0RF
Continued
levothyroxine [Synthroid] 88 MCG tablet
88 mcg PO MOTUWETHFRSA
amlodipine 5 MG tablet
5 mg PO DAILY
simvastatin 5 mg Tablet
5 mg PO HS
sertraline [Zoloft] 50 mg Tablet
50 mg PO HS
pantoprazole 40 mg Tablet,Delayed Release (Dr/Ec)
40 mg PO BID Qty: 60 0RF
acetaminophen 325 mg Tablet
650 mg PO Q6HPRN PRN (Reason: mild pain/headache) Qty: 0 0RF
Discharge Orders:
Discharge Patient (As Directed); Ordered 07/31/24
Ordered By: Yolanda Feliciano
Discharge Date and Time
Print Language: AZERI
== END 2024-07-31 19:22 | disposition home health service (06) | DRG 300 ==
LOC: 4 EAST ACU 18:21
PROVIDERS: Registered Nurse; Student in an Organized Health Care Education/Training Program; ADMITTING PHYSICIAN Internal Medicine; ATTENDING PHYSICIAN Internal Medicine; CONSULT PHYSICIAN Internal Medicine Gastroenterology; CONSULT PHYSICIAN Internal Medicine Infectious Disease; EMERGENCY PHYSICIAN Emergency Medicine; FAMILY PHYSICIAN Family Medicine; OTHER PHYSICIAN Internal Medicine Hematology & Oncology
DX: I80.8 Phlebitis and thrombophlebitis of other sites (principal); K92.1 Melena; L03.114 Cellulitis of left upper limb; F32.A Depression, unspecified; F41.9 Anxiety disorder, unspecified; C67.9 Malignant neoplasm of bladder, unspecified; E03.9 Hypothyroidism, unspecified
CPT/HCPCS: 80048; 80053; 82248; 82962; 85025; 85027; 93005; 93971; 97162; 97166; 97530; 99284

== ENCOUNTER → 2024-08-07 10:34 | Outpatient (REF) | payer BC, SELFPAY ==
[2024-08-07 11:39] LABS: % Basophils 0.7 % (0-2); % Eosinophils 2.4 % (0-6); % Immature Granulocytes 0.2 % (0-0.5); % Lymphocytes 19.2 % (20.5-51.1); % Monocytes 16.4 % (1.7-9.3); % Neutrophils 61.1 % (42.2-75.2); Absolute Eosinophils 0.1 10^3/uL (0-0.7); Absolute Lymphocytes 1.1 10^3/uL (1.2-3.4); Absolute Monocytes 0.9 10^3/uL (0.1-0.6); Absolute Neutrophils 3.5 10^3/uL (1.4-6.5); Hematocrit 30.6 % (37.0-47.0); Hemoglobin 9.9 g/dL (12.0-16.0); Mean Corp Hgb Conc. 32.4 g/dL (33.0-37.0); Mean Corpuscular Volume 95.9 fL (81.0-99.0); Mean Platelet Volume 9.8 fL (7.4-10.4); Nucleated Red Blood Cells % 0 %; Platelet Count 486 10^3/uL (130-400); Red Blood Cell Count 3.19 10^6/uL (4.20-5.40); Red Cell Dist. Width 14.4 % (11.5-14.5); White Blood Cell Count 5.7 10^3/uL (4.8-10.8)
[2024-08-07 12:05] LABS: ALT (SGPT) 17 U/L (0-35); AST (SGOT) 29 U/L (14-36); Albumin 3.8 g/dl (3.5-5.0); Alkaline Phosphatase 111 U/L (38-126); Blood Urea Nitrogen 18 mg/dl (7-17); Calcium 10.8 mg/dl (8.4-10.2); Carbon Dioxide 30 mmol/L (22-30); Chloride 104 mmol/L (98-107); Glucose 94 mg/dl (70-99); Sodium 139 mmol/L (135-145); Total Bilirubin 0.4 mg/dl (0.2-1.3); Total Protein 6.4 g/dl (6.3-8.2); eGFR 58.39
== END ==
LOC: REG 10:34
PROVIDERS: ATTENDING PHYSICIAN Internal Medicine; FAMILY PHYSICIAN Family Medicine
DX: K92.2 Gastrointestinal hemorrhage, unspecified (principal)
CPT/HCPCS: 36415; 80053; 85025

== ENCOUNTER → 2024-08-24 14:04 | Outpatient (REF) | payer BC, SELFPAY ==
[2024-08-24 15:25] LABS: % Basophils 0.9 % (0-2); % Eosinophils 3.7 % (0-6); % Immature Granulocytes 0.2 % (0-0.5); % Lymphocytes 27.7 % (20.5-51.1); % Monocytes 11.1 % (1.7-9.3); % Neutrophils 56.4 % (42.2-75.2); Absolute Basophils 0.1 10^3/uL (0-0.2); Absolute Eosinophils 0.2 10^3/uL (0-0.7); Absolute Lymphocytes 1.8 10^3/uL (1.2-3.4); Absolute Monocytes 0.7 10^3/uL (0.1-0.6); Absolute Neutrophils 3.7 10^3/uL (1.4-6.5); Hematocrit 33.9 % (37.0-47.0); Hemoglobin 11.2 g/dL (12.0-16.0); Mean Corpuscular Hgb 31.1 pg (27.0-31.0); Mean Corpuscular Volume 94.2 fL (81.0-99.0); Mean Platelet Volume 10.5 fL (7.4-10.4); Nucleated Red Blood Cells % 0 %; Platelet Count 282 10^3/uL (130-400); Red Cell Dist. Width 14.1 % (11.5-14.5); White Blood Cell Count 6.5 10^3/uL (4.8-10.8)
[2024-08-24 15:50] LABS: Blood Urea Nitrogen 23 mg/dl (7-17); Calcium 10.3 mg/dl (8.4-10.2); Carbon Dioxide 25 mmol/L (22-30); Chloride 105 mmol/L (98-107); Glucose 101 mg/dl (70-99); Potassium 3.8 mmol/L (3.5-5.1); Sodium 140 mmol/L (135-145); eGFR 58.39
== END ==
LOC: REG 14:04
PROVIDERS: ATTENDING PHYSICIAN Urology; FAMILY PHYSICIAN Family Medicine
DX: R31.0 Gross hematuria (principal)
CPT/HCPCS: 36415; 80048; 85025; 87086

== ENCOUNTER → 2024-11-10 09:47 | Outpatient (REF) | payer BC, SELFPAY ==
[2024-11-10 10:53] LABS: Hematocrit 34.5 % (37.0-47.0); Hemoglobin 11.8 g/dL (12.0-16.0); Mean Corp Hgb Conc. 34.2 g/dL (33.0-37.0); Mean Corpuscular Volume 87.6 fL (81.0-99.0); Nucleated Red Blood Cells % 0 %; Platelet Count 298 10^3/uL (130-400); Red Cell Dist. Width 13.2 % (11.5-14.5)
[2024-11-10 11:13] LABS: ALT (SGPT) 21 U/L (0-35); AST (SGOT) 25 U/L (14-36); Albumin 4.0 g/dl (3.5-5.0); Alkaline Phosphatase 64 U/L (38-126); Blood Urea Nitrogen 19 mg/dl (7-17); Calcium 10.6 mg/dl (8.4-10.2); Carbon Dioxide 26 mmol/L (22-30); Chloride 107 mmol/L (98-107); Glucose 91 mg/dl (70-99); HDL Cholesterol 66 mg/dl; Iron 70 ug/dl (37-170); LDL Cholesterol, Calculated 99 mg/dl; Potassium 3.9 mmol/L (3.5-5.1); Sodium 137 mmol/L (135-145); Total Protein 6.4 g/dl (6.3-8.2); Very Low Density Lipoprotein 17 mg/dl (0-30); eGFR > 60.00
[2024-11-10 11:22] LABS: Total Iron Binding Capacity 246 ug/dl (265-497)
[2024-11-10 11:45] LABS: Ferritin 48.8 ng/ml (11.1-264.0)
== END ==
LOC: REG 09:47
PROVIDERS: ATTENDING PHYSICIAN Family Medicine
DX: D50.8 Other iron deficiency anemias (principal); E03.9 Hypothyroidism, unspecified; E78.49 Other hyperlipidemia
CPT/HCPCS: 36415; 80053; 80061; 82728; 83540; 83550; 84443; 85025

== ENCOUNTER 2024-12-16 09:45 | Emergency (ER) | payer BC, SELFPAY ==
[2024-12-16 09:49] VITALS: BP 155/70
[2024-12-16 10:39] VITALS: BP 154/84
[2024-12-16 11:00] VITALS: BP 170/80
[2024-12-16 11:19] LABS: Hematocrit 35.3 % (37.0-47.0); Hemoglobin 12.1 g/dL (12.0-16.0); Mean Corp Hgb Conc. 34.3 g/dL (33.0-37.0); Mean Corpuscular Volume 88.0 fL (81.0-99.0); Nucleated Red Blood Cells % 0 %; Platelet Count 262 10^3/uL (130-400); Red Cell Dist. Width 13.6 % (11.5-14.5)
[2024-12-16 11:28] VITALS: BP 162/88
[2024-12-16 11:37] LABS: ALT (SGPT) 20 U/L (0-35); AST (SGOT) 28 U/L (14-36); Albumin 4.1 g/dl (3.5-5.0); Alkaline Phosphatase 59 U/L (38-126); Blood Urea Nitrogen 17 mg/dl (7-17); Calcium 10.7 mg/dl (8.4-10.2); Chloride 107 mmol/L (98-107); Glucose 95 mg/dl (70-99); Lipase 337 U/L (23-300); Potassium 3.5 mmol/L (3.5-5.1); Sodium 138 mmol/L (135-145); Total Protein 6.5 g/dl (6.3-8.2); eGFR 58.39
[2024-12-16 11:47] LABS: Carbon Dioxide 26 mmol/L (22-30)
[2024-12-16 11:49] LABS: Troponin I < 0.012 ng/ml
[2024-12-16 11:51] LABS: D-Dimer 0.37 ug/mlFEU (0.00-0.50)
[2024-12-16 12:00] VITALS: BP 160/73
[2024-12-16 13:00] VITALS: BP 144/64
--- NOTE | 2024-12-16 13:28 | ED.GENMED ---
History of Present Illness
General
Chief Complaint: Chest Pain
Source: patient
Exam Limitations: none
Time Seen by Provider: 12/16/24 10:43
Nursing documentation reviewed up to this point in time: agreed with
History of Present Illness
History of Present Illness:
74-year-old female with history as noted presents to the ER for evaluation of chest pain, nausea, lightheadedness. Patient reports that about a month ago she woke up in the middle night with a sensation of 'elephant on my chest.' She says that
went away after period time and she did not have recurrence of symptoms until about 2 weeks later when she had a similar episode of waking in the middle of the night with a sensation of 'elephant on my chest.' She says that since that episode 2
weeks ago she has not had recurrence of chest pressure to the same degree but has had intermittent milder chest pressure associated with left shoulder pain. She has also had intermittent nausea and lightheadedness. She finally decided to come to
the ER today for the symptoms. She denies any exertional component to her symptoms. She does report some mild shortness of breath. She denies any abdominal discomfort. She always has some swelling around her ankles but no worse than usual she
says. Denies any recent cough, fevers, chills. She denies any known cardiac history other she says that she had syncope in the past and had workup including stress test, Holter monitor, echocardiogram which she says was reportedly reassuring.
Past History
Past History
ED Past Medical History: HTN, Hypothyroidism, Other (anemia, TIA, Concussion, C-diff) and Other (C-diff colitis 10/2017)
ED Past Surgical History: and Other (cataracts, right eye surgery); Negative Appendectomy, Bowel resection, Cardiac or Cholecystectomy
Patient has exhibited threatening behavior?: No
PSI?: No
Social History
Tobacco: Former smoker
Alcohol: Occasional
Drug: None
Personal:
Living: with family
Employment: Retired
Family History
Family History: Other (Noncontributory)
Review of Systems
Review of Systems
All Other Systems: ROS reviewed and negative except as documented in HPI and ROS
Constitutional: Denies fever
Respiratory: Reports trouble breathing; Denies cough
Cardiac: Reports chest pain; Denies palpitations
ABD/GI: Reports nausea; Denies abdominal pain or vomiting
: Denies flank pain
Musculoskeletal: Denies edema, neck pain or back pain
Neurological: Reports dizzy; Denies headache
Phy Exam
Physical Exam
Physical Exam:
General: Awake, alert, oriented x3; no acute distress
Head: Normocephalic, atraumatic
Eyes: Conjunctiva normal, sclera anicteric
Throat: Airway intact, handling secretions
Neck: Trachea midline, no JVD
Lungs: Clear to auscultation bilaterally, no wheezing, rales, rhonchi
Heart: Regular rate and rhythm, no murmurs, gallops, or rubs
Abd: Soft, non distended, nontender
Neuro: No gross deficits
Extremities: Trace edema around the ankles bilaterally, no calf tenderness, good pulses throughout all extremities
Scores
Heart Failure Risk
Heart Failure Risk Score: Not Applicable
Heart Score for Chest Pain Patients
STEMI patient?: No
History: Slightly or Non-Suspicious
ECG: Normal
Age: >/= 65 years
Risk Factors: >/= 3 Risk Factors or History of CAD
Troponin: </= Normal Limit
Heart Score for Chest Pain Patients: 4
Heart Score Risk: 20.3% MACE over next 6 weeks
Withdrawal Assessment of Alcohol
Withdrawal Assessment Completed?: Not applicable
Course
Orders/Labs/Results
Orders:
Orders
12/16/24 09:47
EKG [Electrocardiogram (*1)] Urgent
Reason for Study: Chest Pain
EKG- Treatment ONCE
12/16/24 10:45
CR Chest - 2 Views Urgent
Comment:
Reason For Exam: chest pain
12/16/24 11:10
Complete Blood Count/With Diff Urgent
Comprehensive Metabolic Panel Urgent
D-Dimer Urgent
Lipase Urgent
Troponin I Urgent
12/16/24 13:52
Troponin I Urgent
Abnormal Lab Results
12/16/24
11:10
RBC 4.01 L 10^6/uL
(4.20-5.40)
Hct 35.3 L %
(37.0-47.0)
Monocytes % 13.1 H %
(1.7-9.3)
Calcium 10.7 H mg/dl
(8.4-10.2)
Lipase 337 H U/L
(23-300)
12/16/24 11:10
12/16/24 11:10
Vital Signs
Initial and Last Documented VS:
Initial Vital Signs
Temp Pulse Resp BP Pulse Ox
37.0 C 65 16 155/70 98
12/16/24 09:49 12/16/24 09:49 12/16/24 09:49 12/16/24 09:49 12/16/24 09:49
Last Documented Vital Signs
Temp Pulse Resp BP Pulse Ox
37.0 C 65 24 144/64 98
12/16/24 09:49 12/16/24 14:30 12/16/24 14:30 12/16/24 13:00 12/16/24 14:15
MDM/Problems Addressed
Differential Diagnosis Includes:
GERD/gastritis, biliary colic, ACS/angina, anxiety
MDM/Problems Addressed:
74-year-old female presents for evaluation of nonexertional chest pains associated with nausea and mild lightheadedness over the past month�had 2 more intense episodes of chest pressure 'like an elephant on my chest' in the middle of the night most
recent of which was 2 weeks ago. Since then has had intermittent nonexertional symptoms as described. She is mildly hypertensive but vital signs are otherwise normal here. Physical exam as above. Her EKG shows a sinus rhythm with no acute
ischemic changes. Will plan to place an IV check labs including a CBC and a CMP, troponin, D-dimer. Will check chest x-ray. Will monitor on telemetry and reassess after the above.
Labs reviewed: CBC reviewed and no clinically significant abnormalities. CMP within acceptable range�notably normal LFTs. Lipase marginal unlikely of acute clinical significance. Troponin undetectable x 1�will repeat. Chest x-ray shows no acute
disease. Continue to monitor.
Repeat troponin undetectable. Vital signs have been stable patient remains well-appearing. Her symptoms may be from GERD�initial 2 episodes occurred while at night and she does have associated nausea. No exertional symptoms to suggest that this
is cardiac chest pain. At this point I feel patient is stable for discharge and can follow-up with her primary doctor. She had been on pantoprazole but does not take this any longer, suggested perhaps starting this again. She says that she will
see her doctor this week and discuss whether she should restart this. All questions answered.
Chronic conditions affecting care: HTN
Acute Exacerbation and/or Progression of Chronic Illness:
Acutely hypertensive
Acute Exacerbation and/or Progression of Chronic Illness: HTN
*Radiology
Radiology exam reviewed: preliminary read by ED provider and radiology read reviewed
*Pulse Oximetry
SaO2: 97
Oxygen Mode of Delivery: Room air
Patient hypoxic: no (97%)
*EKG
Interpreted by ED Provider?: Yes
Comparison EKG: no changes
Heart Rate: 62
Rate: normal
Rhythm: sinus
[place]: normal axis
Interval: first degree heart block
QRS Pattern: left vent hypertrophy
Ischemia: no ischemia
*Critical Care Note
Total Time (30-74mins, 75-104mins- exclusive of procedures): Not Applicable
Data Reviewed
Review of Other/Old Records Reveals: Labs and Records
Source: patient, records and spouse
ED Attending Note
-
Portions of this chart may have been created with voice recognition software.� Occasional wrong word or��sound alike� substitutions may have occurred due to the inherent limitations of voice recognition software.
Discharge Plan
Departure
Patient Disposition: Home (Routine Discharge)
Date of Disposition: 12/16/24
Time of Disposition: 14:27
Patient with high blood pressure during this ER visit?: Yes
Discharge Problem:
Chest pain
Instructions: Chest Pain PCP Follow Up
Prescriptions:
No Action
levothyroxine [Synthroid] 88 MCG tablet
88 mcg PO MOTUWETHFRSA
amlodipine 5 MG tablet
5 mg PO DAILY
simvastatin 5 mg Tablet
5 mg PO HS
sertraline [Zoloft] 50 mg Tablet
50 mg PO HS
pantoprazole 40 mg Tablet,Delayed Release (Dr/Ec)
40 mg PO BID Qty: 60 0RF
acetaminophen 325 mg Tablet
650 mg PO Q6HPRN PRN (Reason: mild pain/headache) Qty: 0 0RF
cephalexin 500 mg capsule
500 mg PO QID 7 Days Qty: 28 0RF
Referrals:
Kamran Zhao DO [Family Provider, Family Practice] - Follow up in 5-7 days
Activity Restrictions/Additional Instructions:
Thank you for visiting the Emergency Department at [facility].
1. Please schedule a follow up appointment as directed. Call first thing tomorrow morning to make an appointment.
2. If indicated, please take your medications as instructed and indicated on discharge paperwork.
3. If any of your symptoms do not improve, or persist, or become more severe within 6-12 hours, please return to the emergency department for further care.
4. Please return to the emergency department if you develop a headache, neck pain/stiffness, fever greater than 100.4F, chest pain, shortness of breath, persistent nausea, vomiting, slurred speech, difficulty walking, numbness/tingling, weakness,
signs of infection or any other symptoms that are worrisome to you.
Please call [phone] if you have any questions.
Interventions
Interventions:
*Risk Screen - Suicide Last Done: 12/16/24 09:49
*General Assessment Last Done: 12/16/24 11:13
*Neglect/Abuse Screening Last Done: 12/16/24 09:49
*ED- Fall Risk Assessment Last Done: 12/16/24 11:13
*ED COVID-19 Vaccine History Last Done: 12/16/24 11:13
*Nursing Disposition Last Done: 12/16/24 14:38
ED- Cardiac Assessment Last Done: 12/16/24 11:13
Discharge Date and Time
Discharge Date/Time: 12/16/24 14:38
Print Language: ESTONIAN
[2024-12-16 14:24] LABS: Troponin I < 0.012 ng/ml
== END 2024-12-16 14:38 | disposition home or self-care (01) ==
LOC: EMR 09:45
PROVIDERS: EMERGENCY PHYSICIAN Emergency Medicine; FAMILY PHYSICIAN Family Medicine
DX: R07.89 Other chest pain (principal); I44.0 Atrioventricular block, first degree; R11.0 Nausea; I10 Essential (primary) hypertension; R42 Dizziness and giddiness; E03.9 Hypothyroidism, unspecified; Z86.73 Personal history of transient ischemic attack (TIA), and cerebral infarction without residual deficits; Z87.891 Personal history of nicotine dependence
CPT/HCPCS: 99285; 71046; 80053; 83690; 84484; 85025; 85379; 93005